=== PATIENT | female | born 1940 | race Caucasian/White ===

== ENCOUNTER 2019-12-11 14:23 | Outpatient (CLI) | payer MEDICARE | END 2019-12-11 14:24 | disposition critical access hospital (66) | LOC: EMS 14:23 | PROVIDERS: ATTEND Surgery | DX: R07.89 Other chest pain (principal) | CPT/HCPCS: A0425; A0427 ==

== ENCOUNTER 2019-12-11 15:09 | Emergency (ER) | payer MEDICARE ==
[2019-12-11 15:22] VITALS: BP 157/89
[2019-12-11] MEDS ORDERED: MORPHINE 2 MG/ML CARPUJECT IVP STA ×2 (15:25→17:39)
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
[2019-12-11] MEDS ORDERED: IOVERSOL 320 100 ML VIAL IVP ONE ×2 (15:38→19:11)
[2019-12-11 15:48] LABS: BASOPHILS % (AUTO) 0.4 %; EOSINOPHILS # (AUTO) 0.1 10^3/uL (0.0-0.7); EOSINOPHILS % (AUTO) 1.4 %; HGB - HEMOGLOBIN 13.1 g/dL (12.0-16.0); LYMPHOCYTES # (AUTO) 1.4 10^3/uL (1.5-3.5); LYMPHOCYTES % (AUTO) 18.1 %; MEAN CORPUSCULAR HEMOGLOBIN 29.8 pg (27.0-31.0); MEAN CORPUSCULAR HGB CONC 32.7 g/dL (32.0-36.0); MEAN CORPUSCULAR VOLUME 91.1 fL (81.0-99.0); MEAN PLATELET VOLUME 11.5 fL (7.9-10.8); MONOCYTES # (AUTO) 0.5 10^3/uL (0.0-1.0); MONOCYTES % (AUTO) 6.5 %; NEUTROPHILS # (AUTO) 5.6 10^3/uL (1.5-6.6); NEUTROPHILS % (AUTO) 71.7 %; PLT - PLATELET COUNT 115 10^3/uL (130-450); RED CELL DISTRIBUTION WIDTH 13.3 % (12.0-15.0); WHITE BLOOD COUNT 7.8 x10^3/uL (4.8-10.8)
[2019-12-11 15:52] LABS: CALCIUM 9.5 mg/dL (8.5-10.3)
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
[2019-12-11] MEDS ORDERED: TETANUS/DIPHTHERIA/PERTUSSIS 0.5 ML SYRINGE IM ONE (18:20)
[2019-12-11] MEDS ORDERED: HYDROcod/ACETAM 5/325 MG TABLET PO STA (18:52)
== END 2019-12-11 19:06 | disposition left against medical advice (07) ==
LOC: EDUNIT# → ED 15:09
DX: S22.31XA Fracture of one rib, right side, initial encounter for closed fracture (principal); S22.20XA Unspecified fracture of sternum, initial encounter for closed fracture; S22.040A Wedge compression fracture of fourth thoracic vertebra, initial encounter for closed fracture; S20.211A Contusion of right front wall of thorax, initial encounter; S80.02XA Contusion of left knee, initial encounter; S80.212A Abrasion, left knee, initial encounter; S80.01XA Contusion of right knee, initial encounter; S80.12XA Contusion of left lower leg, initial encounter; S10.93XA Contusion of unspecified part of neck, initial encounter; S60.221A Contusion of right hand, initial encounter; V43.62XA Car passenger injured in collision with other type car in traffic accident, initial encounter; Y92.410 Unspecified street and highway as the place of occurrence of the external cause; Z23 Encounter for immunization; M47.812 Spondylosis without myelopathy or radiculopathy, cervical region; E04.9 Nontoxic goiter, unspecified; Z53.20 Procedure and treatment not carried out because of patient's decision for unspecified reasons
CPT/HCPCS: 36415; 70450; 71260; 72125; 73560; 74177; 80048; 85025; 90471; 90715; 96374; 99284; A9270; Q9967

== ENCOUNTER 2019-12-29 10:38 | Outpatient (CLI) | payer OTHER, MEDICARE, BC | END 2019-12-29 10:39 | disposition EMS.NT | LOC: EMS 10:38 | PROVIDERS: ATTEND Surgery | DX: R53.1 Weakness (principal); R42 Dizziness and giddiness ==

== ENCOUNTER 2019-12-29 13:00 | Outpatient (CLI) | payer OTHER, MEDICARE, BC | END 2019-12-29 13:01 | disposition critical access hospital (66) | LOC: EMS 13:00 | PROVIDERS: ATTEND Surgery | DX: R53.1 Weakness (principal); R29.6 Repeated falls; R53.83 Other fatigue; R42 Dizziness and giddiness | CPT/HCPCS: A0425; A0427 ==

== ENCOUNTER 2019-12-29 13:39 | Inpatient (IN) | payer OTHER, MEDICARE, BC ==
[2019-12-29 14:14] LABS: BASOPHILS % (AUTO) 0.3 %; HGB - HEMOGLOBIN 12.4 g/dL (12.0-16.0); LYMPHOCYTES # (AUTO) 0.9 10^3/uL (1.5-3.5); LYMPHOCYTES % (AUTO) 8.4 %; MEAN CORPUSCULAR HEMOGLOBIN 29.2 pg (27.0-31.0); MEAN CORPUSCULAR HGB CONC 32.7 g/dL (32.0-36.0); MEAN CORPUSCULAR VOLUME 89.2 fL (81.0-99.0); MEAN PLATELET VOLUME 11.7 fL (7.9-10.8); MONOCYTES # (AUTO) 0.8 10^3/uL (0.0-1.0); MONOCYTES % (AUTO) 7.9 %; NEUTROPHILS # (AUTO) 8.5 10^3/uL (1.5-6.6); PLT - PLATELET COUNT 170 10^3/uL (130-450); RED BLOOD COUNT 4.25 10^6/uL (4.20-5.40); RED CELL DISTRIBUTION WIDTH 13.4 % (12.0-15.0); WHITE BLOOD COUNT 10.2 x10^3/uL (4.8-10.8)
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
[2019-12-29 14:35] LABS: ALBUMIN 3.8 g/dL (3.2-5.5); ALBUMIN/GLOBULIN RATIO 1.2 (1.0-2.2); BILIRUBIN,TOTAL 1.2 mg/dL (0.2-1.0); CALCIUM 9.6 mg/dL (8.5-10.3); CREATININE 0.7 mg/dL (0.4-1.0); TOTAL PROTEIN 7.1 g/dL (6.7-8.2)
[2019-12-29 14:40] LABS: BILIRUBIN,URINE NEGATIVE (NEGATIVE); GLUCOSE, URINE (UA) NEGATIVE (NEGATIVE); KETONES,URINE (UA) 40 mg/dL (NEGATIVE); LEUKOCYTE ESTERASE, URINE NEGATIVE (NEGATIVE); NITRITE,URINE NEGATIVE (NEGATIVE); OCCULT BLOOD,URINE MODERATE (NEGATIVE); PROTEIN,URINE TRACE mg/dL (NEGATIVE); UROBILINOGEN,URINE 0.2 (NORMAL) E.U./dL (NORMAL)
[2019-12-29 14:44] LABS: CLARITY,URINE CLEAR (CLEAR)
[2019-12-29 14:52] LABS: BACTERIA,URINE Moderate /HPF (None Seen); SQUAMOUS EPITHELIAL CELL,UR RARE Squamous (<= Few)
[2019-12-29] MEDS ORDERED: cefTRIAXone 1 GM VIAL IVP STA (14:54)
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
[2019-12-29] MEDS ORDERED: POTASSIUM CHLOR 10 MEQ/100 ML 10 MEQ/100 ML BAG IV STA (15:45)
[2019-12-29] MEDS ORDERED: SODIUM CHLORIDE 0.9% 1,000 ML IV STA (17:22)
[2019-12-29] MEDS ORDERED: SODIUM CHLORIDE FLUSH 0.9% 10 ML SYRINGE IVP PRN (17:44)
[2019-12-29] MEDS ORDERED: HYDROcod/ACETAM 5/325 MG TABLET PO PRN (17:44)
[2019-12-29] MEDS ORDERED: ONDANSETRON 4 MG/2 ML VIAL IVP PRN (17:44)
[2019-12-29] MEDS ORDERED: ACETAMINOPHEN 325 MG TABLET PO PRN (17:44)
[2019-12-29] MEDS ORDERED: MORPHINE 2 MG/ML CARPUJECT IVP PRN (17:44)
[2019-12-29] MEDS ORDERED: POTASSIUM CHLORIDE 20 MEQ TABLET PO STA (17:54)
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
--- NOTE | 2019-12-29 19:21 | XRAY Report ---
PROCEDURE: Hip w/Pelvis 2-3V RT INDICATIONS: Fall. Pain. TECHNIQUE: AP pelvis with lateral view(s) of the bilateral hip(s). COMPARISON: None. FINDINGS: Bones: No fractures or dislocations. Pelvic ring appears intact. No suspicious bony lesions. Soft tissues: The visualized bowel gas pattern is normal. No suspicious soft tissue calcifications. IMPRESSION: No acute fracture or dislocation. If pain persists, consider cross-sectional imaging wit h CT or MRI. Reviewed by: Arianna Perry MD on 12/29/2019 7:20 PM PDT Approved by: Arianna Perry MD on 12/29/2019 7:20 PM PDT Station ID: [id number]
[2019-12-29] MEDS: POTASSIUM CHLOR 10 MEQ/100 ML 10 MEQ/100 ML BAG IV SCH ×4 (19:47→22:55)
[2019-12-29] MEDS: NYSTATIN POWDER 15 GM TOP SCH (21:02)
[2019-12-29] MEDS: METOPROLOL SUCCINATE 50 MG TABLET PO SCH (21:03)
[2019-12-30] MEDS: SODIUM CHLORIDE FLUSH 0.9% 10 ML SYRINGE IVP SCH ×4 (00:05→23:57)
[2019-12-30] MEDS: IBUPROFEN 400 MG TABLET PO PRN (00:25)
[2019-12-30] MEDS: METOPROLOL SUCCINATE 50 MG TABLET PO SCH ×2 (08:52→21:13)
[2019-12-30] MEDS: NYSTATIN POWDER 15 GM TOP SCH ×2 (08:52→21:14)
[2019-12-30] MEDS: ENOXAPARIN 40 MG/0.4 ML SYRINGE SUBQ SCH ×2 (08:52→09:09)
[2019-12-30] MEDS ORDERED: POTASSIUM CHLOR 10 MEQ/100 ML 10 MEQ/100 ML BAG IV ONE ×4 (08:57→12:53)
[2019-12-30] MEDS ORDERED: METOPROLOL SUCCINATE 50 MG TABLET PO ONE (08:57)
[2019-12-30] MEDS ORDERED: ENOXAPARIN 40 MG/0.4 ML SYRINGE SUBQ ONE ×2 (08:58→09:32)
[2019-12-30] MEDS ORDERED: POTASSIUM CHLORIDE 20 MEQ TABLET PO ONE ×2 (08:58→17:16)
--- NOTE | 2019-12-30 09:22 | PROVIDER PROGRESS NOTE ---
Subjective - Prog Note Date Prog Note Date: 12/30/19 - Subjective Subjective: She feels much better today. Reports no pain. Denies chest pain, dyspnea, dizziness and lightheadedness. She was happy to work with PT and she been using the spirometry frequently. Family is present at bedside. Current Medications - Current Medications Current Medications: Active Medications Acetaminophen (Tylenol) 650 mg PO Q4HR PRN PRN Reason: Pain 1 to 4 Enoxaparin Sodium (Lovenox) 40 mg SUBQ DAILY [facility] Last Admin: 12/30/19 09:09 Dose: Not Given Documented by: Ceftriaxone Sodium 1 gm/ (Sodium Chloride) 100 mls @ 200 mls/hr IV Q24H [facility] Ibuprofen (Motrin) 400 mg PO Q4HR PRN PRN Reason: Pain 1 to 4 Last Admin: 12/30/19 00:25 Dose: 400 mg Documented by: Metoprolol Succinate (Toprol Xl) 50 mg PO BID [facility] Last Admin: 12/30/19 08:52 Dose: 50 mg Documented by: Nystatin (Nystop) 1 applic TOP BID [facility] Last Admin: 12/30/19 08:52 Dose: 1 applic Documented by: Ondansetron HCl (Zofran Inj) 4 mg IVP Q6HR PRN PRN Reason: Nausea / Vomiting Oxycodone HCl (Roxicodone) 2.5 mg PO Q4HR PRN PRN Reason: PAIN Sodium Chloride (Normal Saline Flush 0.9%) 10 ml IVP PRN PRN PRN Reason: NEEDED PER PROVIDER ORDERS Sodium Chloride (Normal Saline Flush 0.9%) 10 ml IVP 0100,0900,1700 [facility] Last Admin: 12/30/19 08:52 Dose: 10 ml Documented by: Estradiol [Estrace] 1 gm VG QPM 12/29/19 Metoprolol Succinate [Toprol Xl] 50 mg PO BID 12/29/19 hydroCHLOROthiazide [Hydrochlorothiazide] 12.5 mg PO DAILY 12/29/19 Objective - Vital Signs/Intake & Output Reviewed Vital Signs: Yes Intake & Output: Intake & Output 12/27/19 12/28/19 12/29/19 12/30/19 23:59 23:59 23:59 23:59 Intake Total 1358.333 100 Balance 1358.333 100 - Objective General Appearance: positive: No acute distress, Alert Eyes Bilateral: positive: Normal inspection, Conjunctivae nml ENT: positive: ENT inspection nml Neck: positive: Nml inspection Respiratory: positive: No respiratory distress. negative: Wheezes, Rales, Rhonchi Cardiovascular: positive: Regular rate & rhythm, No murmur. negative: Tachycardia, Systolic murmur Abdomen: positive: Non-tender, No distention. negative: Tenderness Skin: positive: Warm, Dry, Other (Multiple areas of ecchymosis over her chest and lower extremities. An abrasion over her left knee is healing well.) Extremities: positive: Full ROM, Pedal edema (+1 pitting edema in bilateral lower extremities.) Neurologic/Psychiatric: positive: Oriented x3, Motor nml, Sensation nml - Lab Results Fish Bones: 12/29/19 14:09 12/29/19 14:09 Other Labs: Lab Results x24hrs 12/29/19 12/29/19 12/29/19 Range/Units 20:22 15:58 15:54 WBC (4.8-10.8) x10^3/uL RBC (4.20-5.40) 10^6/uL Hgb (12.0-16.0) g/dL Hct (37.0-47.0) % MCV (81.0-99.0) fL MCH (27.0-31.0) pg MCHC (32.0-36.0) g/dL RDW (12.0-15.0) % Plt Count (130-450) 10^3/uL MPV (7.9-10.8) fL Neut # (Auto) (1.5-6.6) 10^3/uL Lymph # (Auto) (1.5-3.5) 10^3/uL Morrison # (Auto) (0.0-1.0) 10^3/uL Eos # (Auto) (0.0-0.7) 10^3/uL Baso # (Auto) (0.0-0.1) 10^3/uL Absolute Nucleated RBC x10^3/uL Nucleated RBC % /100WBC Sodium (135-145) mmol/L Potassium (3.5-5.0) mmol/L Chloride (101-111) mmol/L Carbon Dioxide (21-32) mmol/L Anion Gap (6-13) BUN (6-20) mg/dL Creatinine (0.4-1.0) mg/dL Estimated GFR (MDRD) (>89) Glucose (70-100) mg/dL Calcium (8.5-10.3) mg/dL Magnesium 2.2 (1.7-2.8) mg/dL Total Bilirubin (0.2-1.0) mg/dL AST (10-42) IU/L ALT (10-60) IU/L Alkaline Phosphatase (42-121) IU/L Troponin I High Sens 58.5 H* 39.0 H* (2.3-14.8) ng/L B-Natriuretic Peptide (5-100) pg/mL Total Protein (6.7-8.2) g/dL Albumin (3.2-5.5) g/dL Globulin (2.1-4.2) g/dL Albumin/Globulin Ratio (1.0-2.2) Lipase (22-51) U/L Urine Color Urine Clarity (CLEAR) Urine pH (5.0-7.5) PH Ur Specific Graham (1.002-1.030) Urine Protein (NEGATIVE) mg/dL Urine Glucose (UA) (NEGATIVE) mg/dL Urine Ketones (NEGATIVE) mg/dL Urine Occult Blood (NEGATIVE) Urine Nitrite (NEGATIVE) Urine Bilirubin (NEGATIVE) Urine Urobilinogen (NORMAL) E.U./dL Ur Leukocyte Esterase (NEGATIVE) Urine RBC (0-5) /HPF Urine WBC (0-5) /HPF Ur Squamous Epith Cells (<= Few) Urine Bacteria (None Seen) /HPF Ur Microscopic Review Urine Culture Comments 12/29/19 12/29/19 12/29/19 Range/Units 14:23 14:09 14:09 WBC (4.8-10.8) x10^3/uL RBC (4.20-5.40) 10^6/uL Hgb (12.0-16.0) g/dL Hct (37.0-47.0) % MCV (81.0-99.0) fL MCH (27.0-31.0) pg MCHC (32.0-36.0) g/dL RDW (12.0-15.0) % Plt Count (130-450) 10^3/uL MPV (7.9-10.8) fL Neut # (Auto) (1.5-6.6) 10^3/uL Lymph # (Auto) (1.5-3.5) 10^3/uL Morrison # (Auto) (0.0-1.0) 10^3/uL Eos # (Auto) (0.0-0.7) 10^3/uL Baso # (Auto) (0.0-0.1) 10^3/uL Absolute Nucleated RBC x10^3/uL Nucleated RBC % /100WBC Sodium (135-145) mmol/L Potassium (3.5-5.0) mmol/L Chloride (101-111) mmol/L Carbon Dioxide (21-32) mmol/L Anion Gap (6-13) BUN (6-20) mg/dL Creatinine (0.4-1.0) mg/dL Estimated GFR (MDRD) (>89) Glucose (70-100) mg/dL Calcium (8.5-10.3) mg/dL Magnesium (1.7-2.8) mg/dL Total Bilirubin (0.2-1.0) mg/dL AST (10-42) IU/L ALT (10-60) IU/L Alkaline Phosphatase (42-121) IU/L Troponin I High Sens 38.9 H* (2.3-14.8) ng/L B-Natriuretic Peptide 170 H (5-100) pg/mL Total Protein (6.7-8.2) g/dL Albumin (3.2-5.5) g/dL Globulin (2.1-4.2) g/dL Albumin/Globulin Ratio (1.0-2.2) Lipase (22-51) U/L Urine Color YELLOW Urine Clarity CLEAR (CLEAR) Urine pH 6.0 (5.0-7.5) PH Ur Specific Graham 1.025 (1.002-1.030) Urine Protein TRACE (NEGATIVE) mg/dL Urine Glucose (UA) NEGATIVE (NEGATIVE) mg/dL Urine Ketones 40 H (NEGATIVE) mg/dL Urine Occult Blood MODERATE H (NEGATIVE) Urine Nitrite NEGATIVE (NEGATIVE) Urine Bilirubin NEGATIVE (NEGATIVE) Urine Urobilinogen 0.2 (NORMAL) (NORMAL) E.U./dL Ur Leukocyte Esterase NEGATIVE (NEGATIVE) Urine RBC 6-10 H (0-5) /HPF Urine WBC 6-10 H (0-5) /HPF Ur Squamous Epith Cells RARE Squamous (<= Few) Urine Bacteria Moderate H (None Seen) /HPF Ur Microscopic Review INDICATED Urine Culture Comments INDICATED 12/29/19 12/29/19 Range/Units 14:09 14:09 WBC 10.2 (4.8-10.8) x10^3/uL RBC 4.25 (4.20-5.40) 10^6/uL Hgb 12.4 (12.0-16.0) g/dL Hct 37.9 (37.0-47.0) % MCV 89.2 (81.0-99.0) fL MCH 29.2 (27.0-31.0) pg MCHC 32.7 (32.0-36.0) g/dL RDW 13.4 (12.0-15.0) % Plt Count 170 (130-450) 10^3/uL MPV 11.7 H (7.9-10.8) fL Neut # (Auto) 8.5 H (1.5-6.6) 10^3/uL Lymph # (Auto) 0.9 L (1.5-3.5) 10^3/uL Morrison # (Auto) 0.8 (0.0-1.0) 10^3/uL Eos # (Auto) 0.0 (0.0-0.7) 10^3/uL Baso # (Auto) 0.0 (0.0-0.1) 10^3/uL Absolute Nucleated RBC 0.00 x10^3/uL Nucleated RBC % 0.0 /100WBC Sodium 144 (135-145) mmol/L Potassium 2.7 L (3.5-5.0) mmol/L Chloride 106 (101-111) mmol/L Carbon Dioxide 25 (21-32) mmol/L Anion Gap 13.0 (6-13) BUN 37 H (6-20) mg/dL Creatinine 0.7 (0.4-1.0) mg/dL Estimated GFR (MDRD) 80 L (>89) Glucose 104 H (70-100) mg/dL Calcium 9.6 (8.5-10.3) mg/dL Magnesium (1.7-2.8) mg/dL Total Bilirubin 1.2 H (0.2-1.0) mg/dL AST 23 (10-42) IU/L ALT 20 (10-60) IU/L Alkaline Phosphatase 169 H (42-121) IU/L Troponin I High Sens (2.3-14.8) ng/L B-Natriuretic Peptide (5-100) pg/mL Total Protein 7.1 (6.7-8.2) g/dL Albumin 3.8 (3.2-5.5) g/dL Globulin 3.3 (2.1-4.2) g/dL Albumin/Globulin Ratio 1.2 (1.0-2.2) Lipase 22 (22-51) U/L Urine Color Urine Clarity (CLEAR) Urine pH (5.0-7.5) PH Ur Specific Graham (1.002-1.030) Urine Protein (NEGATIVE) mg/dL Urine Glucose (UA) (NEGATIVE) mg/dL Urine Ketones (NEGATIVE) mg/dL Urine Occult Blood (NEGATIVE) Urine Nitrite (NEGATIVE) Urine Bilirubin (NEGATIVE) Urine Urobilinogen (NORMAL) E.U./dL Ur Leukocyte Esterase (NEGATIVE) Urine RBC (0-5) /HPF Urine WBC (0-5) /HPF Ur Squamous Epith Cells (<= Few) Urine Bacteria (None Seen) /HPF Ur Microscopic Review Urine Culture Comments - Diagnostic Imaging Diagnostic Imaging Results: positive: Final report reviewed ABX Reporting Has patient been on IV antibiotics over the past 48 hours?: Yes Assessment/Plan - Problem List (1) Multiple rib fractures Impression: Stable. Pain is well controlled and no evidence of pneumonia, hemothorax, pneumothorax. Continue with incentive spirometry. c Qualifiers: Encounter type: subsequent encounter Fracture type: closed Laterality: right (2) Sternum fx Impression: She has a moderately displaced fracture but there is no retrosternal hematoma. She does have multiple areas of ecchymosis over her chest. Continue incentive spirometry use. Pain control with tylenol, ibuprofen and oxycodone as needed. Continue PT/OT. Appreciate general surgery input. Qualifiers: Encounter type: initial encounter Sternal location: body of sternum Fracture type: closed Qualified Code(s): S22.22XA - Fracture of body of sternum, initial encounter for closed fracture (3) Hypertension Impression: Her blood pressure is better controlled with systolic in the 140s. We will con tinue Metoprolol. Hold HCTZ given the the hypokalemia. Will consider resuming tomorrow or switching to Lisinopril. (4) Peripheral edema Impression: This appears improved today. Do not suspect this is related to heart failure given the minimally elevated BNP and lack of CHF findings on imaging. Dopplers have been obtained to eval for DVT and the report is pending. Will follow up. (5) UTI (urinary tract infection) Impression: Will switch to oral Vantin. Follow up urine culture. Qualifiers: Urinary tract infection type: acute cystitis Hematuria presence: without hematuria Qualified Code(s): N30.00 - Acute cystitis without hematuria (6) Elevated troponin Impression: This is likely demand ischemia secondary to trauma. EKG did not suggest ischemia. Her troponin is slightly increased and will so we will continue to trend until it is decreasing but doubt ACS at this time. (7) Hypokalemia Impression: Will continue to replace orally and intravenously.
[2019-12-30] MEDS ORDERED: FLUoxetine 10 MG CAPSULE PO ONE (09:31)
[2019-12-30] MEDS ORDERED: polyethylene glycoL 3350 17 GM PACKET ONE (09:31)
[2019-12-30] MEDS ORDERED: oxyCODONE 5 MG TABLET PO PRN (13:42)
--- NOTE | 2019-12-30 14:46 | PHARMACY PROGRESS NOTE ---
- Best Possible Medication History Admit Date and Time: 12/29/19 6539 Processed by: Nursing (COMPLETED BY RN WITH PHARMACY FOLLOW-UP REGARDING HYDROCODONE-APAP) Medication History completed: Yes As the person ultimately responsible for medication therapy, providers are able to order a medication from an existing home medication list in [facility] via the "Reconcile Routine" prior to Confirmation of that medication by developer support engineer. Such practice is discouraged except when the physician, in their clinical judgment, deems that a medical need exists for a medication without regard to previous use.
[2019-12-30] MEDS ORDERED: cefTRIAXone 1 GM in SODIUM CHLORIDE 0.9% MINIBAG 100 ML IV SCH (15:00)
--- NOTE | 2019-12-30 16:18 | Ultrasound Report ---
PROCEDURE: Duplex Ext Veins Bilateral INDICATIONS: Lower extremity edema TECHNIQUE: Real-time imaging, as well as color and pulse Doppler interrogation, were performed of the deep veins of both legs from the inguinal ligament to the popliteal fossa. COMPARISON: None FINDINGS: The deep veins are normally compressible, and free of intraluminal thrombus. Color and pu lse Doppler demonstrate normal phasic intravascular flow. There is normal augmentation response to d istal compression maneuver. IMPRESSION: No deep venous thrombosis. Reviewed by: Cass Grove MD on 12/30/2019 8:05 AM PDT Approved by: Cass Grove MD on 12/30/2019 8:05 AM PDT Station ID: [id number]
[2019-12-30 16:33] LABS: CALCIUM 8.5 mg/dL (8.5-10.3); CREATININE 0.6 mg/dL (0.4-1.0); PHOSPHORUS 2.9 mg/dL (2.5-4.6)
[2019-12-30 16:34] LABS: CALCIUM 8.7 mg/dL (8.5-10.3); CREATININE 0.7 mg/dL (0.4-1.0)
[2019-12-30 16:49] LABS: BASOPHILS % (AUTO) 0.3 %; EOSINOPHILS # (AUTO) 0.1 10^3/uL (0.0-0.7); EOSINOPHILS % (AUTO) 0.5 %; HGB - HEMOGLOBIN 11.4 g/dL (12.0-16.0); LYMPHOCYTES # (AUTO) 1.7 10^3/uL (1.5-3.5); LYMPHOCYTES % (AUTO) 17.7 %; MEAN CORPUSCULAR HEMOGLOBIN 29.2 pg (27.0-31.0); MEAN CORPUSCULAR HGB CONC 32.5 g/dL (32.0-36.0); MEAN CORPUSCULAR VOLUME 89.8 fL (81.0-99.0); MEAN PLATELET VOLUME 12.1 fL (7.9-10.8); MONOCYTES % (AUTO) 10.9 %; NEUTROPHILS # (AUTO) 6.5 10^3/uL (1.5-6.6); NEUTROPHILS % (AUTO) 70.3 %; PLT - PLATELET COUNT 171 10^3/uL (130-450); RED BLOOD COUNT 3.91 10^6/uL (4.20-5.40); RED CELL DISTRIBUTION WIDTH 13.4 % (12.0-15.0); WHITE BLOOD COUNT 9.3 x10^3/uL (4.8-10.8)
[2019-12-30] MEDS: MULTIVITAMIN W/MINERALS TABLET PO SCH (18:23)
[2019-12-30] MEDS: CALCIUM CARBONATE CHEW 500 MG TABLET PO SCH (21:13)
[2019-12-31 04:50] LABS: BASOPHILS % (AUTO) 0.4 %; EOSINOPHILS # (AUTO) 0.1 10^3/uL (0.0-0.7); EOSINOPHILS % (AUTO) 1.1 %; HGB - HEMOGLOBIN 11.7 g/dL (12.0-16.0); LYMPHOCYTES # (AUTO) 1.4 10^3/uL (1.5-3.5); LYMPHOCYTES % (AUTO) 19.4 %; MEAN CORPUSCULAR HEMOGLOBIN 28.7 pg (27.0-31.0); MEAN CORPUSCULAR HGB CONC 32.1 g/dL (32.0-36.0); MEAN CORPUSCULAR VOLUME 89.7 fL (81.0-99.0); MEAN PLATELET VOLUME 11.4 fL (7.9-10.8); MONOCYTES # (AUTO) 0.7 10^3/uL (0.0-1.0); MONOCYTES % (AUTO) 9.6 %; NEUTROPHILS # (AUTO) 4.9 10^3/uL (1.5-6.6); NEUTROPHILS % (AUTO) 69.1 %; PLT - PLATELET COUNT 157 10^3/uL (130-450); RED BLOOD COUNT 4.07 10^6/uL (4.20-5.40); RED CELL DISTRIBUTION WIDTH 13.2 % (12.0-15.0); WHITE BLOOD COUNT 7.1 x10^3/uL (4.8-10.8)
[2019-12-31 05:02] LABS: CALCIUM 8.8 mg/dL (8.5-10.3); CREATININE 0.6 mg/dL (0.4-1.0); MAGNESIUM 2.3 mg/dL (1.7-2.8); PHOSPHORUS 2.6 mg/dL (2.5-4.6)
[2019-12-31] MEDS: hydroCHLOROthiazide 25 MG TABLET PO SCH ×2 (06:18→08:58)
[2019-12-31] MEDS: METOPROLOL SUCCINATE 50 MG TABLET PO SCH ×2 (08:58→20:22)
[2019-12-31] MEDS: CALCIUM CARBONATE CHEW 500 MG TABLET PO SCH ×2 (08:58→20:22)
[2019-12-31] MEDS: MULTIVITAMIN W/MINERALS TABLET PO SCH (08:59)
[2019-12-31] MEDS: CHOLECALCIFEROL 25 MCG TABLET PO SCH (09:00)
[2019-12-31] MEDS ORDERED: CEFPODOXIME PROXETIL 100 MG TABLET PO SCH (09:00)
[2019-12-31] MEDS: IBUPROFEN 400 MG TABLET PO PRN (09:00)
[2019-12-31] MEDS: NYSTATIN POWDER 15 GM TOP SCH ×2 (09:01→20:22)
[2019-12-31] MEDS: ENOXAPARIN 40 MG/0.4 ML SYRINGE SUBQ SCH (09:01)
[2019-12-31] MEDS: SODIUM CHLORIDE FLUSH 0.9% 10 ML SYRINGE IVP SCH ×2 (09:01→16:54)
[2019-12-31] MEDS ORDERED: LOSARTAN 50 MG TABLET PO SCH (15:02)
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
[2019-12-31] MEDS: SACCHAROMYCES BOULARDII 250 MG CAPSULE PO SCH (16:50)
[2019-12-31] MEDS: TAMSULOSIN 0.4 MG CAPSULE PO SCH (16:50)
[2020-01-01] MEDS: SODIUM CHLORIDE FLUSH 0.9% 10 ML SYRINGE IVP SCH ×3 (00:38→17:54)
[2020-01-01 05:13] LABS: BASOPHILS % (AUTO) 0.4 %; EOSINOPHILS # (AUTO) 0.2 10^3/uL (0.0-0.7); HGB - HEMOGLOBIN 12.3 g/dL (12.0-16.0); LYMPHOCYTES # (AUTO) 1.6 10^3/uL (1.5-3.5); LYMPHOCYTES % (AUTO) 21.6 %; MEAN CORPUSCULAR HGB CONC 32.9 g/dL (32.0-36.0); MEAN CORPUSCULAR VOLUME 88.2 fL (81.0-99.0); MONOCYTES # (AUTO) 0.7 10^3/uL (0.0-1.0); MONOCYTES % (AUTO) 9.5 %; NEUTROPHILS # (AUTO) 4.8 10^3/uL (1.5-6.6); NEUTROPHILS % (AUTO) 65.1 %; PLT - PLATELET COUNT 152 10^3/uL (130-450); RED BLOOD COUNT 4.24 10^6/uL (4.20-5.40); RED CELL DISTRIBUTION WIDTH 13.2 % (12.0-15.0); WHITE BLOOD COUNT 7.4 x10^3/uL (4.8-10.8)
[2020-01-01 05:25] LABS: CALCIUM 9.1 mg/dL (8.5-10.3); CREATININE 0.6 mg/dL (0.4-1.0); MAGNESIUM 2.1 mg/dL (1.7-2.8); PHOSPHORUS 3.4 mg/dL (2.5-4.6)
[2020-01-01] MEDS ORDERED: POTASSIUM CHLORIDE 20 MEQ TABLET PO ONE (08:00)
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
[2020-01-01] MEDS ORDERED: SODIUM CHLORIDE 0.9% 1,000 ML IV SCH ×3 (11:00)
[2020-01-01] MEDS: MULTIVITAMIN W/MINERALS TABLET PO SCH (11:44)
[2020-01-01] MEDS: IBUPROFEN 400 MG TABLET PO PRN (11:44)
[2020-01-01] MEDS: SACCHAROMYCES BOULARDII 250 MG CAPSULE PO SCH ×2 (11:44→17:54)
[2020-01-01] MEDS: CHOLECALCIFEROL 25 MCG TABLET PO SCH (11:45)
[2020-01-01] MEDS: CALCIUM CARBONATE CHEW 500 MG TABLET PO SCH ×2 (11:45→22:04)
[2020-01-01] MEDS: ENOXAPARIN 40 MG/0.4 ML SYRINGE SUBQ SCH (11:46)
[2020-01-01] MEDS: NYSTATIN POWDER 15 GM TOP SCH ×2 (11:51→21:57)
[2020-01-01] MEDS: TAMSULOSIN 0.4 MG CAPSULE PO SCH (11:53)
[2020-01-01] MEDS: METOPROLOL SUCCINATE 50 MG TABLET PO SCH (22:04)
[2020-01-02] MEDS: SODIUM CHLORIDE FLUSH 0.9% 10 ML SYRINGE IVP SCH ×2 (00:08→08:36)
[2020-01-02 05:18] LABS: BASOPHILS % (AUTO) 0.5 %; EOSINOPHILS # (AUTO) 0.2 10^3/uL (0.0-0.7); EOSINOPHILS % (AUTO) 2.7 %; HGB - HEMOGLOBIN 11.8 g/dL (12.0-16.0); LYMPHOCYTES # (AUTO) 1.3 10^3/uL (1.5-3.5); MEAN CORPUSCULAR HEMOGLOBIN 29.3 pg (27.0-31.0); MEAN CORPUSCULAR HGB CONC 32.9 g/dL (32.0-36.0); MEAN CORPUSCULAR VOLUME 89.1 fL (81.0-99.0); MEAN PLATELET VOLUME 11.8 fL (7.9-10.8); MONOCYTES # (AUTO) 0.7 10^3/uL (0.0-1.0); MONOCYTES % (AUTO) 10.4 %; NEUTROPHILS % (AUTO) 64.9 %; PLT - PLATELET COUNT 155 10^3/uL (130-450); RED BLOOD COUNT 4.03 10^6/uL (4.20-5.40); RED CELL DISTRIBUTION WIDTH 13.3 % (12.0-15.0); WHITE BLOOD COUNT 6.2 x10^3/uL (4.8-10.8)
[2020-01-02 05:33] LABS: CALCIUM 8.6 mg/dL (8.5-10.3); CREATININE 0.6 mg/dL (0.4-1.0); MAGNESIUM 2.1 mg/dL (1.7-2.8); PHOSPHORUS 3.1 mg/dL (2.5-4.6)
[2020-01-02] MEDS: METOPROLOL SUCCINATE 50 MG TABLET PO SCH (08:35)
[2020-01-02] MEDS: ENOXAPARIN 40 MG/0.4 ML SYRINGE SUBQ SCH (08:35)
[2020-01-02] MEDS: SACCHAROMYCES BOULARDII 250 MG CAPSULE PO SCH (08:35)
[2020-01-02] MEDS: CALCIUM CARBONATE CHEW 500 MG TABLET PO SCH (08:36)
[2020-01-02] MEDS: CHOLECALCIFEROL 25 MCG TABLET PO SCH (08:36)
[2020-01-02] MEDS: IBUPROFEN 400 MG TABLET PO PRN (08:36)
[2020-01-02] MEDS: MULTIVITAMIN W/MINERALS TABLET PO SCH (08:36)
[2020-01-02] MEDS: TAMSULOSIN 0.4 MG CAPSULE PO SCH (08:36)
[2020-01-02] MEDS: NYSTATIN POWDER 15 GM TOP SCH (08:47)
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
[2020-01-02 16:09] VITALS: BP 135/73
== END 2020-01-02 16:28 | disposition swing bed (61) | DRG 184 ==
LOC: EDUNIT# → ED 13:39 → MS2 17:44
PROVIDERS: ADMIT Internal Medicine; ATTEND Nurse Practitioner Gerontology
DX: S22.41XA Multiple fractures of ribs, right side, initial encounter for closed fracture (principal); S22.20XA Unspecified fracture of sternum, initial encounter for closed fracture; S22.049A Unspecified fracture of fourth thoracic vertebra, initial encounter for closed fracture; S22.059A Unspecified fracture of T5-T6 vertebra, initial encounter for closed fracture; F11.921 Opioid use, unspecified with intoxication delirium; N30.00 Acute cystitis without hematuria; I24.8 Other forms of acute ischemic heart disease; Z91.81 History of falling; I10 Essential (primary) hypertension; R60.0 Localized edema; R77.8 Other specified abnormalities of plasma proteins; E87.6 Hypokalemia; R33.9 Retention of urine, unspecified; Z99.3 Dependence on wheelchair; F03.90 Unspecified dementia, unspecified severity, without behavioral disturbance, psychotic disturbance, mood disturbance, and anxiety; R42 Dizziness and giddiness; M25.511 Pain in right shoulder; R25.1 Tremor, unspecified
CPT/HCPCS: 36415; 51701; 70450; 71250; 73030; 73502; 80048; 80053; 81001; 83690; 83735; 83880; 84100; 84484; 85025; 87086; 93005; 93970; 96365; 97161; 97166; 97530; 97535; 99285; A9270; J1650; 81003

== ENCOUNTER 2020-01-02 11:52 | Inpatient (IN) | payer OTHER, MEDICARE, BC ==
--- NOTE | 2020-01-02 17:52 | PHARMACY PROGRESS NOTE ---
- Best Possible Medication History Admit Date and Time: 01/02/20 1624 Processed by: Pharmacy Medication History completed: Yes Secondary Source(s): Previous admit records (SWING BED TRANSFER - MEDICATON HISTORY CARRIED OVER FROM INPATIENT RECORDS) As the person ultimately responsible for medication therapy, providers are able to order a medication from an existing home medication list in [facility] via the "Reconcile Routine" prior to Confirmation of that medication by passport support manager. Such practice is discouraged except when the physician, in their clinical judgment, deems that a medical need exists for a medication without regard to previous use.
[2020-01-02] MEDS: CALCIUM CARBONATE CHEW 500 MG TABLET PO SCH (20:40)
[2020-01-02] MEDS: METOPROLOL TARTRATE 50 MG TABLET PO SCH (21:29)
[2020-01-03] MEDS: CALCIUM CARBONATE CHEW 500 MG TABLET PO SCH ×2 (10:03→21:14)
[2020-01-03] MEDS: METOPROLOL TARTRATE 50 MG TABLET PO SCH ×2 (10:03→21:14)
[2020-01-03] MEDS: ENOXAPARIN 40 MG/0.4 ML SYRINGE SUBQ SCH (10:06)
[2020-01-04] MEDS: METOPROLOL TARTRATE 50 MG TABLET PO SCH ×2 (08:57→20:16)
[2020-01-04] MEDS: ENOXAPARIN 40 MG/0.4 ML SYRINGE SUBQ SCH (08:57)
[2020-01-04] MEDS: CALCIUM CARBONATE CHEW 500 MG TABLET PO SCH ×2 (08:57→20:16)
[2020-01-04] MEDS: polyethylene glycoL 3350 17 GM PACKET PO SCH (08:57)
[2020-01-04] MEDS: IBUPROFEN 600 MG TABLET PO PRN (11:23)
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
[2020-01-05] MEDS: ENOXAPARIN 40 MG/0.4 ML SYRINGE SUBQ SCH (09:20)
[2020-01-05] MEDS: METOPROLOL TARTRATE 50 MG TABLET PO SCH ×2 (09:20→19:46)
[2020-01-05] MEDS: CALCIUM CARBONATE CHEW 500 MG TABLET PO SCH ×2 (09:20→19:46)
[2020-01-05] MEDS: polyethylene glycoL 3350 17 GM PACKET PO SCH (09:24)
[2020-01-05] MEDS: IBUPROFEN 600 MG TABLET PO PRN (22:15)
[2020-01-06] MEDS: ACETAMINOPHEN 325 MG TABLET PO PRN (03:41)
[2020-01-06 10:08] LABS: BILIRUBIN,URINE NEGATIVE (NEGATIVE); GLUCOSE, URINE (UA) NEGATIVE (NEGATIVE); KETONES,URINE (UA) NEGATIVE (NEGATIVE); LEUKOCYTE ESTERASE, URINE SMALL (NEGATIVE); NITRITE,URINE NEGATIVE (NEGATIVE); OCCULT BLOOD,URINE LARGE (NEGATIVE); PH,URINE 6.5 PH (5.0-7.5); PROTEIN,URINE NEGATIVE (NEGATIVE); UROBILINOGEN,URINE 0.2 (NORMAL) E.U./dL (NORMAL)
[2020-01-06 10:10] LABS: CLARITY,URINE CLEAR (CLEAR)
[2020-01-06] MEDS: polyethylene glycoL 3350 17 GM PACKET PO SCH (10:13)
[2020-01-06] MEDS: METOPROLOL TARTRATE 50 MG TABLET PO SCH ×2 (10:16→20:04)
[2020-01-06] MEDS: ENOXAPARIN 40 MG/0.4 ML SYRINGE SUBQ SCH (10:17)
[2020-01-06] MEDS: CALCIUM CARBONATE CHEW 500 MG TABLET PO SCH (10:19)
[2020-01-06 10:22] LABS: SQUAMOUS EPITHELIAL CELL,UR RARE Squamous (<= Few)
[2020-01-06 10:23] LABS: BACTERIA,URINE Many /HPF (None Seen)
--- NOTE | 2020-01-06 15:01 | PROVIDER PROGRESS NOTE ---
Subjective - Prog Note Date Prog Note Date: 01/06/20 Prog Note Time: 14:58 - Subjective Subjective: She has been steadily progressing with physical therapy. Therapy and family feel that she is on goal to be discharged by this . Today is Monday. Before she was transitioned to the swing bed status she was already having episodes of urinary retention requiring straight cath. She had a Wallace catheter for about 48 hours and that was discontinued. Since being in swing bed status she continues to have urinary retention has been straight cath. This morning, after attempting to urinate standing, and urinating sitting down, she is still retaining 540 cc. It hurts to urinate. Urinalysis shows possible UTI. There are no fever no chills. No hematuria. No flank pain. Current Medications - Current Medications Current Medications: Active Medications Acetaminophen (Tylenol) 650 mg PO Q4HR PRN PRN Reason: Pain or Fever > 38C (100.4F) Last Admin: 01/06/20 03:41 Dose: 650 mg Documented by: Calcium Carbonate/Glycine (Tums) 500 mg PO BID [facility] Last Admin: 01/06/20 10:19 Dose: 500 mg Documented by: Enoxaparin Sodium (Lovenox) 40 mg SUBQ DAILY [facility] Last Admin: 01/06/20 10:17 Dose: 40 mg Documented by: Ibuprofen (Motrin) 600 mg PO Q6HR PRN PRN Reason: Pain 1 to 4 Last Admin: 01/05/20 22:15 Dose: 600 mg Documented by: Metoprolol Tartrate (Lopressor) 50 mg PO BID [facility] Last Admin: 01/06/20 10:16 Dose: 50 mg Documented by: Polyethylene Glycol (Miralax) 17 gm PO DAILY [facility] Last Admin: 01/06/20 10:13 Dose: 17 gm Documented by: Estradiol [Estrace] 1 gm VG QPM 12/29/19 Metoprolol Succinate [Toprol Xl] 50 mg PO BID 12/29/19 hydroCHLOROthiazide [Hydrochlorothiazide] 12.5 mg PO DAILY 12/29/19 Objective - Vital Signs/Intake & Output Reviewed Vital Signs: Yes Vital Signs: Vital Signs x48h Temp Pulse Pulse Resp BP BP BP 01/06/20 11:41 74 110/75 01/06/20 10:16 162/78 H 01/06/20 09:00 36.8 C 73 18 161/84 H Pulse Ox 01/06/20 11:41 01/06/20 10:16 01/06/20 09:00 97 Intake & Output: Intake & Output 01/03/20 01/04/20 01/05/20 01/06/20 23:59 23:59 23:59 23:59 Intake Total 560 580 600 250 Output Total 1575 256 923 5911 Balance -1015 -320 -100 -950 - Objective General Appearance: positive: No acute distress, Alert, Other (Disoriented alertness, focus has improved over the last few days. Still confused with evidence of cognitive deficit however.) Eyes Bilateral: positive: PERRL Neck: positive: No JVD Respiratory: positive: No respiratory distress. negative: Wheezes, Rales, Rhonchi Cardiovascular: positive: Regular rate & rhythm, Systolic murmur. negative: Gallop/S4, Friction rub Abdomen: positive: No organomegaly, Nml bowel sounds, No distention, Tenderness (Mild over the suprapubic area. Uncomfortable with a full bladder that I feel.) Skin: positive: Warm, Dry Neurologic/Psychiatric: positive: CN's nml (2-12), Disoriented to place, Disoriented to time. negative: Motor nml (Mild backward balance. But getting better and better with prompting and leaning forward.), Mood/affect nml (She can have flashes of anxiety. Mainly related to disorientation. There are times where she thinks her is a stranger and she is very unhappy he is in the room. And then it fades away and she recognizes them again.) - Lab Results Other Labs: Lab Results x24hrs 01/06/20 Range/Units 09:25 Urine Color YELLOW Urine Clarity CLEAR (CLEAR) Urine pH 6.5 (5.0-7.5) PH Ur Specific [place] 1.015 (1.002-1.030) Urine Protein NEGATIVE (NEGATIVE) mg/dL Urine Glucose (UA) NEGATIVE (NEGATIVE) mg/dL Urine Ketones NEGATIVE (NEGATIVE) mg/dL Urine Occult Blood LARGE H (NEGATIVE) Urine Nitrite NEGATIVE (NEGATIVE) Urine Bilirubin NEGATIVE (NEGATIVE) Urine Urobilinogen 0.2 (NORMAL) (NORMAL) E.U./dL Ur Leukocyte Esterase SMALL H (NEGATIVE) Urine RBC 6-10 H (0-5) /HPF Urine WBC 11-25 H (0-5) /HPF Ur Squamous Epith Cells RARE Squamous (<= Few) Urine Bacteria Many H (None Seen) /HPF Ur Microscopic Review INDICATED Urine Culture Comments INDICATED ABX Reporting Has patient been on IV antibiotics over the past 48 hours?: No Assessment/Plan - Problem List (1) UTI (urinary tract infection) Impression: Symptoms of urgency, frequency. Definitely has urinary retention on bladder scan. Urinalysis shows possible infection. Plan:cipro 500 mg po bid Qualifiers: Urinary tract infection type: acute cystitis Hematuria presence: without hematuria Qualified Code(s): N30.00 - Acute cystitis without hematuria (2) Urinary retention Impression: Resume Wallace catheter. Start bladder training over the next 2 days. (3) Hypertension Impression: On Lopressor 50 mg p.o. twice daily blood pressure ranges from 134 262. At 79 years of age, I think that is acceptable. Qualifiers: Hypertension type: essential hypertension Qualified Code(s): I10 - Essential (primary) hypertension
[2020-01-06] MEDS: CIPROFLOXACIN 250 MG TABLET PO SCH (20:05)
[2020-01-07] MEDS: SENNA 8.6 MG TABLET PO SCH (09:24)
[2020-01-07] MEDS: DOCUSATE SODIUM 250 MG CAPSULE PO SCH (09:24)
[2020-01-07] MEDS: METOPROLOL TARTRATE 50 MG TABLET PO SCH ×2 (09:24→21:26)
[2020-01-07] MEDS: CHOLECALCIFEROL 25 MCG TABLET PO SCH (09:25)
[2020-01-07] MEDS: TAMSULOSIN 0.4 MG CAPSULE PO SCH (09:25)
[2020-01-07] MEDS: polyethylene glycoL 3350 17 GM PACKET PO SCH (09:26)
[2020-01-07] MEDS: CIPROFLOXACIN 250 MG TABLET PO SCH ×2 (09:26→21:27)
[2020-01-07] MEDS: ENOXAPARIN 40 MG/0.4 ML SYRINGE SUBQ SCH (09:28)
--- NOTE | 2020-01-07 11:34 | PROVIDER PROGRESS NOTE ---
Assessment/Plan - Problem List (1) Muscular deconditioning Assessment/Plan: She has been in Swing Bed status since 01/02/2020 for PT and OT rehab. (2) Urinary retention Assessment/Plan: This appears to coincide with her abnormal urinalysis suggesting UTI (see below) . A Wallace catheter was placed yesterday. Will start bladder training by ordering every 4 hour Wallace clamping. We will order either Flomax to promote flushing, or Bethanechol to help with urinary retention. (3) UTI (urinary tract infection) Qualifiers: Urinary tract infection type: acute cystitis Hematuria presence: without hematuria Qualified Code(s): N30.00 - Acute cystitis without hematuria Assessment/Plan: She has no fever. She has no burning, urgency or frequency. She was started on oral Cipro for abnormal urinalysis yesterday. Await cultures. A 7-day course of antibx is planned (4) Hypotension Assessment/Plan: Blood pressure dropped to 80-89 systolic this morning, even before giving Flomax. This could be related to her infection or due to decreased p.o. fluid intake. Will give hold parameters on her meds if low blood pressure. Will check CMP, CBC and lactic acid level. Will give a saline bolus if BP not better in a few hours or if she is lightheaded. Monitor BP as per protocol. (5) Dementia Qualifiers: Dementia type: unspecified type Dementia behavioral disturbance: without behavioral disturbance Qualified Code(s): F03.90 - Unspecified dementia without behavioral disturbance Assessment/Plan: There are no behavioral disturbances and she is cooperating with PT and OT. She occasionally gets confused and does not even recognize her , but this happens when she is anxious and then it passes and she recognizes him. - Current Meds Current Meds: Current Medications Generic Name Dose Route Start Last Admin Trade Name Freq PRN Reason Stop Dose Admin Acetaminophen 650 mg 01/02/20 16:30 01/06/20 03:41 Tylenol PO 650 mg Q4HR PRN Administration Pain or Fever > 38C (100.4F) Cholecalciferol 50 mcg 01/07/20 09:00 01/07/20 09:25 Vitamin D3 PO 50 mcg DAILY MONICA Administration Ciprofloxacin 500 mg 01/06/20 21:00 01/07/20 09:26 Cipro PO 500 mg BID MONICA Administration Docusate Sodium 250 - 500 mg 01/07/20 09:00 01/07/20 09:24 Colace 250mg Capsule PO 250 mg DAILY MONICA Administration Enoxaparin Sodium 40 mg 01/03/20 09:00 01/07/20 09:28 Lovenox SUBQ 40 mg DAILY MONICA Administration Ibuprofen 600 mg 01/02/20 16:34 01/05/20 22:15 Motrin PO 600 mg Q6HR PRN Administration Pain 1 to 4 Metoprolol Tartrate 50 mg 01/02/20 21:00 01/07/20 09:24 Lopressor PO Not Given BID MONICA Polyethylene Glycol 17 gm 01/04/20 09:00 01/07/20 09:26 Miralax PO 17 gm DAILY MONICA Administration Senna 8.6 - 17.2 mg 01/07/20 09:00 01/07/20 09:24 Senokot PO 8.6 mg DAILY MONICA Administration Tamsulosin HCl 0.4 mg 01/07/20 09:00 01/07/20 09:25 Flomax PO 0.4 mg DAILY MONICA Administration - Lab Result Fish Bone Diagrams: 01/07/20 12:04 01/07/20 12:04 - Additional Planning My Orders: My Active Orders 01/07/20 09:00 Cholecalciferol [Vitamin D3] 50 mcg PO DAILY Tamsulosin [Flomax] 0.4 mg PO DAILY 01/07/20 11:12 Miscellaenous Nursing Order [RC] QSHIFT 01/07/20 Lunch Low Sodium Diet [DIET] Subjective - Subjective Patient Reports: No Complaints Nursing Reports: Other (Wallace catheter was put in yesterday. The nurse tried clamping it for 4 hours then assess if she had any urgency to urinate and the patient had none.) Objective Vital Signs: Vital Signs - 24 hr 01/06/20 01/06/20 01/06/20 11:41 20:03 20:04 Temperature 36.4 C L Heart Rate [ 72 Brachial] Heart Rate [ 74 Supine] Respiratory 18 Rate Blood Pressure 153/80 H Blood Pressure [Left Brachial artery] Blood Pressure 153/80 H [Right Brachial artery] Blood Pressure 110/75 [Supine] O2 Saturation 99 01/07/20 01/07/20 01/07/20 09:18 09:20 09:23 Temperature 36.4 C L Heart Rate [ 77 75 73 Brachial] Heart Rate [ Supine] Respiratory 20 Rate Blood Pressure Blood Pressure 81/52 L 89/54 L [Left Brachial artery] Blood Pressure 85/54 L [Right Brachial artery] Blood Pressure [Supine] O2 Saturation 98 Oxygen O2 Source Room air I&O (Last 24 Hrs): Intake and Output Totals x24h 01/05/20 01/06/20 01/07/20 23:59 23:59 23:59 Intake Total 600 550 120 Output Total 700 2935 700 Balance -100 -6077 -658 General: Alert HEENT: Mucous membr. moist/pink Neck: Supple Neuro: Disoriented Cardiovascular: Regular rate Respiratory: No respiratory distress Abdomen: Soft Extremities: No edema - Results Results: Laboratory Results Urine Color YELLOW 01/06/20 09:25 Urine Clarity CLEAR (CLEAR) 01/06/20 09:25 Urine pH 6.5 PH (5.0-7.5) 01/06/20 09:25 Ur Specific [place] 1.015 (1.002-1.030) 01/06/20 09:25 Urine Protein NEGATIVE mg/dL (NEGATIVE) 01/06/20 09:25 Urine Glucose (UA) NEGATIVE mg/dL (NEGATIVE) 01/06/20 09:25 Urine Ketones NEGATIVE mg/dL (NEGATIVE) 01/06/20 09:25 Urine Occult Blood LARGE (NEGATIVE) H 01/06/20 09:25 Urine Nitrite NEGATIVE (NEGATIVE) 01/06/20 09:25 Urine Bilirubin NEGATIVE (NEGATIVE) 01/06/20 09:25 Urine Urobilinogen 0.2 (NORMAL) E.U./dL (NORMAL) 01/06/20 09:25 Ur Leukocyte Esterase SMALL (NEGATIVE) H 01/06/20 09:25 Urine RBC 6-10 /HPF (0-5) H 01/06/20 09:25 Urine WBC 11-25 /HPF (0-5) H 01/06/20 09:25 Ur Squamous Epith Cells RARE Squamous (<= Few) 01/06/20 09:25 Urine Bacteria Many /HPF (None Seen) H 01/06/20 09:25 Ur Microscopic Review INDICATED 01/06/20 09:25 Urine Culture Comments INDICATED 01/06/20 09:25
[2020-01-07] MEDS ORDERED: SODIUM CHLORIDE 0.9% 500 ML IV ONE (11:39)
[2020-01-07] MEDS: CALCIUM CARBONATE CHEW 500 MG TABLET PO SCH ×2 (12:05→17:10)
[2020-01-07 12:10] LABS: BASOPHILS % (AUTO) 0.3 %; EOSINOPHILS # (AUTO) 0.1 10^3/uL (0.0-0.7); EOSINOPHILS % (AUTO) 1.2 %; HGB - HEMOGLOBIN 12.6 g/dL (12.0-16.0); LYMPHOCYTES # (AUTO) 1.4 10^3/uL (1.5-3.5); LYMPHOCYTES % (AUTO) 15.5 %; MEAN CORPUSCULAR HEMOGLOBIN 28.9 pg (27.0-31.0); MEAN CORPUSCULAR HGB CONC 31.8 g/dL (32.0-36.0); MEAN CORPUSCULAR VOLUME 90.8 fL (81.0-99.0); MONOCYTES # (AUTO) 0.6 10^3/uL (0.0-1.0); MONOCYTES % (AUTO) 6.5 %; NEUTROPHILS % (AUTO) 75.8 %; PLT - PLATELET COUNT 199 10^3/uL (130-450); RED BLOOD COUNT 4.36 10^6/uL (4.20-5.40); RED CELL DISTRIBUTION WIDTH 13.3 % (12.0-15.0); WHITE BLOOD COUNT 9.2 x10^3/uL (4.8-10.8)
[2020-01-07 12:23] LABS: ALBUMIN 3.2 g/dL (3.2-5.5); BILIRUBIN,TOTAL 0.3 mg/dL (0.2-1.0); CALCIUM 9.2 mg/dL (8.5-10.3); CREATININE 0.7 mg/dL (0.4-1.0); TOTAL PROTEIN 6.5 g/dL (6.7-8.2)
--- NOTE | 2020-01-08 09:10 | PROVIDER PROGRESS NOTE ---
Assessment/Plan - Problem List (1) Muscular deconditioning Assessment/Plan: She has been in Swing Bed status since 01/02/2020 for PT and OT rehab. (2) UTI (urinary tract infection) Qualifiers: Urinary tract infection type: acute cystitis Hematuria presence: without hematuria Qualified Code(s): N30.00 - Acute cystitis without hematuria Assessment/Plan: The labs done yesterday did not show an elevated WBC but Lactic Acid level was slightly elevated at 2.9. The urine is growing Eb=nterobacter which is good sensative. She was started on oral Cipro for abnormal urinalysis 2 days ago. A 7-day course of antibx is planned (3) Infection due to Enterobacter species Assessment/Plan: As above (4) Urinary retention Assessment/Plan: This appears to coincide with her abnormal urinalysis suggesting UTI A Wallace catheter was placed 2 days ago. Bladder training started yesterday, by ordering every 4 hour Wallace clamping. We ordered Bethanechol to help with urinary retention. Will D/C Wallace tomorrow. (5) Dementia Qualifiers: Dementia type: unspecified type Dementia behavioral disturbance: without behavioral disturbance Qualified Code(s): F03.90 - Unspecified dementia without behavioral disturbance Assessment/Plan: There are no behavioral disturbances and she is cooperating with PT and OT. She occasionally gets confused and does not even recognize her , but this happens when she is anxious and then it passes and she recognizes him. (6) Hypotension Assessment/Plan: Resolved. It may have been from the infection. - Current Meds Current Meds: Current Medications Generic Name Dose Route Start Last Admin Trade Name Nilam PRN Reason Stop Dose Admin Acetaminophen 650 mg 01/02/20 16:30 01/06/20 03:41 Tylenol PO 650 mg Q4HR PRN Administration Pain or Fever > 38C (100.4F) Calcium Carbonate/Glycine 500 mg 01/07/20 12:00 01/07/20 17:10 Tums PO 500 mg 1200,1700 MONICA Administration Cholecalciferol 50 mcg 01/07/20 09:00 01/07/20 09:25 Vitamin D3 PO 50 mcg DAILY MONICA Administration Ciprofloxacin 500 mg 01/06/20 21:00 01/07/20 21:27 Cipro PO 500 mg BID MONICA Administration Docusate Sodium 250 - 500 mg 01/07/20 09:00 01/07/20 09:24 Colace 250mg Capsule PO 250 mg DAILY MONICA Administration Enoxaparin Sodium 40 mg 01/03/20 09:00 01/07/20 09:28 Lovenox SUBQ 40 mg DAILY MONICA Administration Ibuprofen 600 mg 01/02/20 16:34 01/05/20 22:15 Motrin PO 600 mg Q6HR PRN Administration Pain 1 to 4 Metoprolol Tartrate 50 mg 01/02/20 21:00 01/07/20 21:26 Lopressor PO 50 mg BID MONICA Administration Polyethylene Glycol 17 gm 01/04/20 09:00 01/07/20 09:26 Miralax PO 17 gm DAILY MONICA Administration Senna 8.6 - 17.2 mg 01/07/20 09:00 01/07/20 09:24 Senokot PO 8.6 mg DAILY MONICA Administration Tamsulosin HCl 0.4 mg 01/07/20 09:00 01/07/20 09:25 Flomax PO 0.4 mg DAILY MONICA Administration - Lab Result Fish Bone Diagrams: 01/07/20 12:04 01/07/20 12:04 - Additional Planning My Orders: My Active Orders 01/07/20 09:00 Cholecalciferol [Vitamin D3] 50 mcg PO DAILY Tamsulosin [Flomax] 0.4 mg PO DAILY 01/07/20 11:12 Miscellaenous Nursing Order [RC] QSHIFT 01/07/20 Lunch Low Sodium Diet [DIET] 01/08/20 09:00 Bethanechol [Urecholine] 10 mg PO QID Subjective - Subjective Patient Reports: No Complaints Objective Vital Signs: Vital Signs - 24 hr 01/07/20 01/07/20 01/07/20 09:18 09:20 09:23 Temperature 36.4 C L Heart Rate [ 77 75 73 Brachial] Respiratory 20 Rate Blood Pressure Blood Pressure 81/52 L 89/54 L [Left Brachial artery] Blood Pressure 85/54 L [Right Brachial artery] O2 Saturation 98 01/07/20 01/07/20 01/07/20 12:01 20:17 21:26 Temperature 36.4 C L Heart Rate [ 77 82 Brachial] Respiratory 18 18 Rate Blood Pressure 153/72 H Blood Pressure [Left Brachial artery] Blood Pressure 128/63 154/82 H [Right Brachial artery] O2 Saturation 98 96 01/08/20 08:00 Temperature 36.3 C L Heart Rate [ 67 Brachial] Respiratory 16 Rate Blood Pressure Blood Pressure [Left Brachial artery] Blood Pressure 127/75 [Right Brachial artery] O2 Saturation 100 Oxygen O2 Source Room air I&O (Last 24 Hrs): Intake and Output Totals x24h 01/06/20 01/07/20 01/08/20 23:59 23:59 23:59 Intake Total 550 480 Output Total 2935 1545 450 Balance -2385 -1065 -450 General: Alert HEENT: Mucous membr. moist/pink Neck: Supple Neuro: Alert, Disoriented Cardiovascular: Regular rate Respiratory: No respiratory distress Extremities: No edema - Results Results: Laboratory Results WBC 9.2 x10^3/uL (4.8-10.8) 01/07/20 12:04 RBC 4.36 10^6/uL (4.20-5.40) 01/07/20 12:04 Hgb 12.6 g/dL (12.0-16.0) 01/07/20 12:04 Hct 39.6 % (37.0-47.0) 01/07/20 12:04 MCV 90.8 fL (81.0-99.0) 01/07/20 12:04 MCH 28.9 pg (27.0-31.0) 01/07/20 12:04 MCHC 31.8 g/dL (32.0-36.0) L 01/07/20 12:04 RDW 13.3 % (12.0-15.0) 01/07/20 12:04 Plt Count 199 10^3/uL (130-450) 01/07/20 12:04 MPV 11.0 fL (7.9-10.8) H 01/07/20 12:04 Neut # (Auto) 7.0 10^3/uL (1.5-6.6) H 01/07/20 12:04 Lymph # (Auto) 1.4 10^3/uL (1.5-3.5) L 01/07/20 12:04 Iron # (Auto) 0.6 10^3/uL (0.0-1.0) 01/07/20 12:04 Eos # (Auto) 0.1 10^3/uL (0.0-0.7) 01/07/20 12:04 Baso # (Auto) 0.0 10^3/uL (0.0-0.1) 01/07/20 12:04 Absolute Nucleated RBC 0.00 x10^3/uL 01/07/20 12:04 Nucleated RBC % 0.0 /100WBC 01/07/20 12:04 Sodium 138 mmol/L (135-145) 01/07/20 12:04 Potassium 3.7 mmol/L (3.5-5.0) 01/07/20 12:04 Chloride 104 mmol/L (101-111) 01/07/20 12:04 Carbon Dioxide 23 mmol/L (21-32) 01/07/20 12:04 Anion Gap 11.0 (6-13) 01/07/20 12:04 BUN 21 mg/dL (6-20) H 01/07/20 12:04 Creatinine 0.7 mg/dL (0.4-1.0) 01/07/20 12:04 Estimated GFR (MDRD) 80 (>89) L 01/07/20 12:04 Glucose 119 mg/dL (70-100) H 01/07/20 12:04 Lactic Acid 2.9 mmol/L (0.5-2.2) H 01/07/20 12:04 Calcium 9.2 mg/dL (8.5-10.3) 01/07/20 12:04 Total Bilirubin 0.3 mg/dL (0.2-1.0) 01/07/20 12:04 AST 30 IU/L (10-42) 01/07/20 12:04 ALT 42 IU/L (10-60) 01/07/20 12:04 Alkaline Phosphatase 119 IU/L (42-121) 01/07/20 12:04 Total Protein 6.5 g/dL (6.7-8.2) L 01/07/20 12:04 Albumin 3.2 g/dL (3.2-5.5) 01/07/20 12:04 Globulin 3.3 g/dL (2.1-4.2) 01/07/20 12:04 Albumin/Globulin Ratio 1.0 (1.0-2.2) 01/07/20 12:04 Urine Color YELLOW 01/06/20 09:25 Urine Clarity CLEAR (CLEAR) 01/06/20 09:25 Urine pH 6.5 PH (5.0-7.5) 01/06/20 09:25 Ur Specific [place] 1.015 (1.002-1.030) 01/06/20 09:25 Urine Protein NEGATIVE mg/dL (NEGATIVE) 01/06/20 09:25 Urine Glucose (UA) NEGATIVE mg/dL (NEGATIVE) 01/06/20 09:25 Urine Ketones NEGATIVE mg/dL (NEGATIVE) 01/06/20 09:25 Urine Occult Blood LARGE (NEGATIVE) H 01/06/20 09:25 Urine Nitrite NEGATIVE (NEGATIVE) 01/06/20 09:25 Urine Bilirubin NEGATIVE (NEGATIVE) 01/06/20 09:25 Urine Urobilinogen 0.2 (NORMAL) E.U./dL (NORMAL) 01/06/20 09:25 Ur Leukocyte Esterase SMALL (NEGATIVE) H 01/06/20 09:25 Urine RBC 6-10 /HPF (0-5) H 01/06/20 09:25 Urine WBC 11-25 /HPF (0-5) H 01/06/20 09:25 Ur Squamous Epith Cells RARE Squamous (<= Few) 01/06/20 09:25 Urine Bacteria Many /HPF (None Seen) H 01/06/20 09:25 Ur Microscopic Review INDICATED 01/06/20 09:25 Urine Culture Comments INDICATED 01/06/20 09:25
[2020-01-08] MEDS: polyethylene glycoL 3350 17 GM PACKET PO SCH (10:05)
[2020-01-08] MEDS: ENOXAPARIN 40 MG/0.4 ML SYRINGE SUBQ SCH (10:06)
[2020-01-08] MEDS: SENNA 8.6 MG TABLET PO SCH (10:06)
[2020-01-08] MEDS: CHOLECALCIFEROL 25 MCG TABLET PO SCH (10:06)
[2020-01-08] MEDS: METOPROLOL TARTRATE 50 MG TABLET PO SCH ×2 (10:07→20:35)
[2020-01-08] MEDS: CIPROFLOXACIN 250 MG TABLET PO SCH ×2 (10:07→20:36)
[2020-01-08] MEDS: BETHANECHOL 10 MG TABLET PO SCH ×4 (10:07→20:40)
[2020-01-08] MEDS: TAMSULOSIN 0.4 MG CAPSULE PO SCH (10:08)
[2020-01-08] MEDS: DOCUSATE SODIUM 250 MG CAPSULE PO SCH (10:09)
[2020-01-08] MEDS: CALCIUM CARBONATE CHEW 500 MG TABLET PO SCH ×2 (12:25→17:54)
[2020-01-08] MEDS: ACETAMINOPHEN 325 MG TABLET PO PRN (13:09)
[2020-01-09] MEDS: BETHANECHOL 10 MG TABLET PO SCH ×2 (09:12→11:25)
[2020-01-09] MEDS: METOPROLOL TARTRATE 50 MG TABLET PO SCH (09:12)
[2020-01-09] MEDS: CHOLECALCIFEROL 25 MCG TABLET PO SCH (09:13)
[2020-01-09] MEDS: CIPROFLOXACIN 250 MG TABLET PO SCH (09:14)
[2020-01-09] MEDS: ENOXAPARIN 40 MG/0.4 ML SYRINGE SUBQ SCH (09:14)
[2020-01-09 09:24] VITALS: BP 135/75
--- NOTE | 2020-01-09 10:49 | Discharge Plan ---
Discharge Plan Problem Reviewed?: Yes Disposition: 06 Home Health Service Condition: Stable Prescriptions: Ciprofloxacin [Cipro] 250 mg PO Q12H #6 tablet Calcium Carbonate [Tums (Calcium Carbonate 500mg)] 500 mg PO 1200,1700 #30 tablet Bethanechol [Urecholine] 10 mg PO QID #16 tablet Cholecalciferol [Vitamin D3] 50 mcg PO DAILY #60 tablet Diet: Low Sodium Activity Restrictions: Activity as Tolerated Shower Restrictions: No Driving Restrictions: Yes Assistance Devices: Walker Health Concerns: You were here for rehab with Physical Therapy and Occupational Therapy. You are being sent home with a new walker to use with ambulation. At home, you will have further rehab work with a home health agency. We found that you have a urinary tract infection and you needed antibiotics. You will need to take several more days of oral antibiotics at home. Please take all these listed medications. The new prescription medications were electronically sent to your [facility] in [place]. Please see your Primary Care Provider in the next 1 to 2 weeks for a hospital follow-up. Plan of Treatment: As above. Care Goals: Improvement in symptoms and stabilization are the goals. Assessment: Written instructions were provided at discharge. Follow-Up Care: Home Health - RN, Home Health - PT, Home Health - OT No Smoking: If you smoke, Please STOP! Call for help. Follow-up with: Ana Zarate MD [Primary Care Provider] -
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
[2020-01-09] MEDS: DOCUSATE SODIUM 250 MG CAPSULE PO SCH (11:20)
[2020-01-09] MEDS: polyethylene glycoL 3350 17 GM PACKET PO SCH (11:20)
[2020-01-09] MEDS: SENNA 8.6 MG TABLET PO SCH (11:20)
[2020-01-09] MEDS: CALCIUM CARBONATE CHEW 500 MG TABLET PO SCH (11:24)
== END 2020-01-09 13:42 | disposition home health service (06) | DRG 556 ==
LOC: MS2 16:24
PROVIDERS: ADMIT Specialist; ATTEND Internal Medicine
DX: M62.81 Muscle weakness (generalized) (principal); N30.00 Acute cystitis without hematuria; B96.89 Other specified bacterial agents as the cause of diseases classified elsewhere; S22.41XG Multiple fractures of ribs, right side, subsequent encounter for fracture with delayed healing; S22.20XD Unspecified fracture of sternum, subsequent encounter for fracture with routine healing; V49.9XXD Car occupant (driver) (passenger) injured in unspecified traffic accident, subsequent encounter; R33.9 Retention of urine, unspecified; I10 Essential (primary) hypertension; F03.90 Unspecified dementia, unspecified severity, without behavioral disturbance, psychotic disturbance, mood disturbance, and anxiety; R53.83 Other fatigue; R32 Unspecified urinary incontinence; M25.559 Pain in unspecified hip; R25.1 Tremor, unspecified; R26.81 Unsteadiness on feet; H91.90 Unspecified hearing loss, unspecified ear; M40.209 Unspecified kyphosis, site unspecified; Z91.81 History of falling; Z74.09 Other reduced mobility; Z79.899 Other long term (current) drug therapy
CPT/HCPCS: 36415 ×2; 80053 ×2; 81001 ×2; 81003; 83605 ×2; 85025 ×2; 87077 ×2; 87086 ×2; 87181 ×2; 97116; 97161; 97166; 97530; 97535; A9270; J1650

== ENCOUNTER 2020-02-21 23:28 | Outpatient (CLI) | payer MEDICARE, BC | END 2020-02-21 23:29 | disposition EMS.NT | LOC: EMS 23:28 | PROVIDERS: ATTEND Surgery | DX: S09.90XA Unspecified injury of head, initial encounter (principal); W18.39XA Other fall on same level, initial encounter; W22.8XXA Striking against or struck by other objects, initial encounter; Y93.89 Activity, other specified; Y92.009 Unspecified place in unspecified non-institutional (private) residence as the place of occurrence of the external cause ==

== ENCOUNTER 2020-02-28 21:34 | Outpatient (CLI) | payer MEDICARE, BC | END 2020-02-28 21:35 | disposition EMS.NT | LOC: EMS 21:34 | PROVIDERS: ATTEND Surgery | DX: Z03.89 Encounter for observation for other suspected diseases and conditions ruled out (principal) ==

== ENCOUNTER 2020-04-18 23:04 | Emergency (ER) | payer MEDICARE, BC ==
--- NOTE | 2020-04-18 23:56 | ED Physician Documentation ---
History of Present Illness - Stated complaint Stated Complaint: BILAT ANKLE REDNESS - Chief complaint Chief Complaint: Wound - History obtained from History obtained from: Patient, EMS - History of Present Illness Timing: How many weeks ago (2) Pain level now: 2 Improved by: nothing Worsened by: no exacerbating factors - Additonal information Additional information: BIBA. patient c/o 2 weeks of bilateral ankle redness and swelling, gradually worsening despite 10-day course of bactrim. denies fever, denies injury Review of Systems Constitutional: denies: Fever, Chills, Sweats GI: reports: Reviewed and negative Skin: reports: Rash Musculoskeletal: reports: Extremity pain, Extremity swelling PD PAST MEDICAL HISTORY - Past Medical History Cardiovascular: Hypertension Neuro: Tremors Musculoskeletal: Other - Present Medications Home Medications: Ambulatory Orders Medication Instructions Recorded Confirmed Metoprolol Succinate [Toprol Xl] 50 mg PO BID 12/29/19 01/02/20 Ciprofloxacin HCl [Cipro] 500 mg PO BID #19 tablet 04/19/20 SULFAM/TRIM 800/160 Prepack 2 1 tab PO BID 04/19/20 04/19/20 [BACTRIM DS 800/160 Prepack 2] - Allergies Allergies/Adverse Reactions: Allergies Allergy/AdvReac Type Severity Reaction Status Date / Time No Known Drug Allergies Allergy Verified 04/18/20 23:08 - Social History Does the pt smoke?: No Smoking Status: Never smoker Does the pt drink ETOH?: No Does the pt have substance abuse?: No - Immunizations Immunizations are current?: Yes - POLST Patient has POLST: No POLST Status: Full Code PD ED PE NORMAL - Vitals Vital signs reviewed: Yes - General General: Alert and oriented X 3, No acute distress, Well developed/nourished - Neck Neck: Supple, no meningeal sign - Cardiac Cardiac: RRR, No murmur - Respiratory Respiratory: No respiratory distress, Clear bilaterally - Abdomen Abdomen: Soft, Non tender PD ED PE EXPANDED - Extremities Extremities: Pedal Pulses Present, Sensory intact, Vascular intact JUDSON LE visual: 1 - deformity (sharply marginated ulceration with dry granulomatous tissue; no discharge, fluctuance, or tenderness) 2 - rash (erythema, scant thick malodorous discharge, no fluctuance), swelling, tenderness 3 - rash (erythema with scant thick malodorous discharge, no fluctuance), swelling, tenderness Results - Vitals Vitals: Vital Signs - 24 hr 04/18/20 04/19/20 23:08 02:39 Temperature 36.5 C 36.6 C Heart Rate 72 68 Respiratory 16 14 Rate Blood Pressure 123/72 120/64 O2 Saturation 100 100 Oxygen O2 Source Room air - Labs Labs: Laboratory Tests 04/18/20 04/18/20 04/18/20 23:55 23:55 23:55 WBC 9.3 RBC 3.93 L Hgb 11.1 L Hct 35.4 L MCV 90.1 MCH 28.2 MCHC 31.4 L RDW 15.4 H Plt Count 92 L MPV 12.0 H Neut # (Auto) 7.4 H Lymph # (Auto) 1.0 L [place] # (Auto) 0.8 Eos # (Auto) 0.1 Baso # (Auto) 0.0 Absolute Nucleated RBC 0.00 Nucleated RBC % 0.0 Sodium 134 L Potassium 4.1 Chloride 102 Carbon Dioxide 24 Anion Gap 8.0 BUN 37 H Creatinine 0.9 Estimated GFR (MDRD) 60 L Glucose 103 H Lactic Acid 1.0 Calcium 8.9 PD MEDICAL DECISION MAKING - ED course Complexity details: reviewed old records, reviewed results, re-evaluated patient, considered differential, d/w patient ED course: reassuring blood tests including normal WBC and lactate. She is afebrile and in NAD. the malodor of the discharge from her bilateral lower extremities is suggestive of a pseudomonal infection and thus cipro given and rx provided for same. inpatient treatment not indicated at this time Departure - Departure Disposition: 01 Home, Self Care Clinical Impression: Cellulitis Qualifiers: Site of cellulitis: extremity Site of cellulitis of extremity: lower extremity Laterality: unspecified laterality Qualified Code(s): L03.119 - Cellulitis of unspecified part of limb Condition: Good Instructions: ED Infec Skin Cellulitis Follow-Up: Ana Zarate MD [Primary Care Provider] - Prescriptions: Ciprofloxacin HCl [Cipro] 500 mg PO BID #19 tablet Discharge Date/Time: 04/19/20 02:38
[2020-04-19 00:10] LABS: BASOPHILS % (AUTO) 0.3 %; EOSINOPHILS # (AUTO) 0.1 10^3/uL (0.0-0.7); HGB - HEMOGLOBIN 11.1 g/dL (12.0-16.0); LYMPHOCYTES % (AUTO) 11.1 %; MEAN CORPUSCULAR HEMOGLOBIN 28.2 pg (27.0-31.0); MEAN CORPUSCULAR HGB CONC 31.4 g/dL (32.0-36.0); MEAN CORPUSCULAR VOLUME 90.1 fL (81.0-99.0); MONOCYTES # (AUTO) 0.8 10^3/uL (0.0-1.0); MONOCYTES % (AUTO) 8.3 %; NEUTROPHILS # (AUTO) 7.4 10^3/uL (1.5-6.6); PLT - PLATELET COUNT 92 10^3/uL (130-450); RED BLOOD COUNT 3.93 10^6/uL (4.20-5.40); RED CELL DISTRIBUTION WIDTH 15.4 % (12.0-15.0); WHITE BLOOD COUNT 9.3 x10^3/uL (4.8-10.8)
[2020-04-19 00:16] LABS: CALCIUM 8.9 mg/dL (8.5-10.3); CREATININE 0.9 mg/dL (0.4-1.0)
[2020-04-19] MEDS ORDERED: CIPROFLOXACIN 400 MG/200 ML 400 MG/200 ML BAG IV STA (01:10)
[2020-04-19 02:40] VITALS: BP 120/64
== END 2020-04-19 02:38 | disposition home or self-care (01) ==
LOC: ED 23:04
DX: L03.116 Cellulitis of left lower limb (principal); L03.115 Cellulitis of right lower limb; L97.229 Non-pressure chronic ulcer of left calf with unspecified severity; I10 Essential (primary) hypertension
CPT/HCPCS: 36415; 80048; 83605; 85025; 96365; 99284

== ENCOUNTER 2020-05-06 19:49 | Outpatient (CLI) | payer MEDICARE, BC | END 2020-05-06 19:50 | disposition critical access hospital (66) | LOC: EMS 19:49 | PROVIDERS: ATTEND Emergency Medicine | DX: S00.12XA Contusion of left eyelid and periocular area, initial encounter (principal); S00.11XA Contusion of right eyelid and periocular area, initial encounter; S00.83XA Contusion of other part of head, initial encounter; M79.89 Other specified soft tissue disorders; S40.022A Contusion of left upper arm, initial encounter; S40.021A Contusion of right upper arm, initial encounter; W19.XXXA Unspecified fall, initial encounter | CPT/HCPCS: A0425; A0429 ==

== ENCOUNTER 2020-05-06 20:23 | Inpatient (IN) | payer MEDICARE, BC ==
[2020-05-06] MEDS ORDERED: SODIUM CHLORIDE 0.9% 1,000 ML IV STA (20:58)
[2020-05-06 21:32] LABS: BASOPHILS % (AUTO) 0.4 %; EOSINOPHILS % (AUTO) 0.2 %; HCT - HEMATOCRIT 36.5 % (37.0-47.0); HGB - HEMOGLOBIN 11.7 g/dL (12.0-16.0); LYMPHOCYTES # (AUTO) 0.4 10^3/uL (1.5-3.5); LYMPHOCYTES % (AUTO) 8.8 %; MEAN CORPUSCULAR HEMOGLOBIN 28.8 pg (27.0-31.0); MEAN CORPUSCULAR HGB CONC 32.1 g/dL (32.0-36.0); MEAN CORPUSCULAR VOLUME 89.9 fL (81.0-99.0); MONOCYTES # (AUTO) 0.3 10^3/uL (0.0-1.0); MONOCYTES % (AUTO) 6.7 %; NEUTROPHILS % (AUTO) 83.7 %; RED BLOOD COUNT 4.06 10^6/uL (4.20-5.40); RED CELL DISTRIBUTION WIDTH 16.2 % (12.0-15.0); WHITE BLOOD COUNT 4.8 x10^3/uL (4.8-10.8)
[2020-05-06 21:34] LABS: PT - PROTHROMBIN TIME 11.4 secs (9.9-12.6)
[2020-05-06 21:41] LABS: ACETAMINOPHEN < 10 ug/mL (10-30); ALBUMIN 3.1 g/dL (3.2-5.5); ALKALINE PHOSPHATASE 114 IU/L (42-121); ALT ALANINE AMINOTRANSFERASE 48 IU/L (10-60); AST ASPARTATE AMINOTRANSFERASE 33 IU/L (10-42); BILIRUBIN,TOTAL 0.6 mg/dL (0.2-1.0); BUN - BLOOD UREA NITROGEN 23 mg/dL (6-20); CALCIUM 9.4 mg/dL (8.5-10.3); CARBON DIOXIDE - CO2 27 mmol/L (21-32); CHLORIDE 104 mmol/L (101-111); CK- CREATINE KINASE 49 IU/L (22-269); CREATININE 0.6 mg/dL (0.4-1.0); CRP - C-REACTIVE PROTEIN 2.4 mg/dL (0-1.0); ETOH - ETHANOL < 5.0 mg/dL; GFR - MDRD 96 (>89); GLUCOSE 102 mg/dL (70-100); LIPASE 28 U/L (22-51); PARTIAL THROMBOPLASTIN TIME 38.6 secs (24.9-33.3); POTASSIUM 3.8 mmol/L (3.5-5.0); SALICYLATE < 6.0 mg/dL; SODIUM 141 mmol/L (135-145); TOTAL PROTEIN 6.2 g/dL (6.7-8.2)
[2020-05-06 21:45] LABS: PLATELET MORPHOLOGY 1+ GIANT PLATELETS (NORMAL); PLT - PLATELET COUNT 30 10^3/uL (130-450)
[2020-05-06 21:46] LABS: PLATELET ESTIMATE, MANUAL DECREASED (<130,000) (NORMAL); RBC MORPHOLOGY (MULTIPLE) 1+ ANISOCYTOSIS (NORMAL); WBC MORPHOLOGY (MULTIPLE) NORMAL APPEARANCE (NORMAL)
[2020-05-06 22:13] LABS: MUDS CUTOFF CONCENTRATIONS CUTOFF CONC BELOW:
[2020-05-06 22:15] LABS: BILIRUBIN,URINE NEGATIVE (NEGATIVE); GLUCOSE, URINE (UA) NEGATIVE (NEGATIVE); KETONES,URINE (UA) 15 mg/dL (NEGATIVE); LEUKOCYTE ESTERASE, URINE NEGATIVE (NEGATIVE); NITRITE,URINE NEGATIVE (NEGATIVE); OCCULT BLOOD,URINE NEGATIVE (NEGATIVE); PROTEIN,URINE NEGATIVE (NEGATIVE); UROBILINOGEN,URINE 0.2 (NORMAL) E.U./dL (NORMAL)
[2020-05-06 22:16] LABS: CLARITY,URINE CLEAR (CLEAR)
[2020-05-06 22:27] LABS: AMPHETAMINE SCREEN,URINE NEGATIVE (NEGATIVE); BARBITURATE SCREEN,UR NEGATIVE (NEGATIVE); BENZODIAZEPINES SCREEN, URINE NEGATIVE (NEGATIVE); COCAINE SCREEN URINE NEGATIVE (NEGATIVE); METHADONE SCREEN, URINE NEGATIVE (NEGATIVE); METHAMPHETAMINES SCREEN, URINE NEGATIVE (NEGATIVE); OPIATE SCREEN, URINE NEGATIVE (NEGATIVE); OXYCODONE SCREEN, URINE NEGATIVE (NEGATIVE); PROPOXYPHENE SCREEN, URINE NEGATIVE (NEGATIVE); THC CANNABINOID SCREEN, URINE NEGATIVE (NEGATIVE); TRICYCLIC ANTIDEPRESSANT,URINE NEGATIVE (NEGATIVE)
--- NOTE | 2020-05-06 22:29 | ED Physician Documentation ---
History of Present Illness - Stated complaint Stated Complaint: GLF/ HEAD, FACE INJ - Chief complaint Chief Complaint: General - History obtained from History obtained from: Patient, EMS - History of Present Illness Timing: Today Pain level max: 0 Pain level now: 0 - Additonal information Additional information: Patient lives at home with her . Per EMS, they both have significant dementia. Kerry has been falling multiple times and is now less responsive and not taking care of herself. Per EMS, patient and do not know when she fell or how many times she has fallen. Family states that they are concerned about the patient and her 's ability to be at home. Multiple draining wounds to the legs. Patient unable to give any history. patient significantly bruised over the face and chest. Review of Systems Unable to obtain: [facility] PD PAST MEDICAL HISTORY - Past Medical History Cardiovascular: Hypertension Respiratory: None Neuro: Tremors Endocrine/Autoimmune: None GI: None YEAST TENDER: None : None HEENT: None Psych: None Musculoskeletal: Other Derm: None - Past Surgical History Past Surgical History: No - Present Medications Home Medications: Ambulatory Orders Medication Instructions Recorded Confirmed Metoprolol Succinate [Toprol Xl] 50 mg PO BID 12/29/19 01/02/20 Ciprofloxacin HCl [Cipro] 500 mg PO BID #19 tablet 04/19/20 SULFAM/TRIM 800/160 Prepack 2 1 tab PO BID 04/19/20 04/19/20 [BACTRIM DS 800/160 Prepack 2] - Allergies Allergies/Adverse Reactions: Allergies Allergy/AdvReac Type Severity Reaction Status Date / Time No Known Drug Allergies Allergy Verified 04/18/20 23:08 - Social History Does the pt smoke?: No Smoking Status: Never smoker Does the pt drink ETOH?: No Does the pt have substance abuse?: No - Immunizations Immunizations are current?: Yes - POLST Patient has POLST: No POLST Status: Full Code PD ED PE NORMAL - Vitals Vital signs reviewed: Yes - General General: Other (somnolent, difficult to arouse) - HEENT HEENT: Pharynx benign, Other (significant B facial swelling. R eye swollen shut.) - Neck Neck: Supple, no meningeal sign - Cardiac Cardiac: RRR - Respiratory Respiratory: No respiratory distress, Clear bilaterally - Abdomen Abdomen: Soft, Non tender, Non distended - Back Back: No spinal TTP - Derm Derm: Other (cool, pale) - Extremities Extremities: Other (open wounds to B lower extremities. No signs of active infection.) - Neuro Neuro: Other (somnolent, difficult to arouse.) Results - Vitals Vitals: Vital Signs - 24 hr 05/06/20 05/06/20 20:28 20:47 Temperature 35.1 C L 35.1 C L Heart Rate 55 L 55 L Respiratory 26 H 26 H Rate Blood Pressure 136/60 H 136/60 H O2 Saturation 100 100 Oxygen O2 Source Room air - EKG (time done) 2113 Rate: Rate (enter#) (70) Rhythm: Atrial fibrillation Intervals: LBBB (incomplete) QRS: Normal - Labs Labs: Laboratory Tests 05/06/20 05/06/20 05/06/20 21:11 21:11 21:11 WBC 4.8 RBC 4.06 L Hgb 11.7 L Hct 36.5 L MCV 89.9 MCH 28.8 MCHC 32.1 RDW 16.2 H Plt Count 30 L* Neut # (Auto) 4.0 Lymph # (Auto) 0.4 L Dubois # (Auto) 0.3 Eos # (Auto) 0.0 Baso # (Auto) 0.0 Absolute Nucleated RBC 0.00 Nucleated RBC % 0.0 WBC Morphology NORMAL APPEARANCE Platelet Estimate DECREASED (<130,000) Platelet Morphology 1+ GIANT PLATELETS RBC Morph Micro Appear 1+ ANISOCYTOSIS ESR PT INR APTT Sodium 141 Potassium 3.8 Chloride 104 Carbon Dioxide 27 Anion Gap 10.0 BUN 23 H Creatinine 0.6 Estimated GFR (MDRD) 96 Glucose 102 H Lactic Acid Calcium 9.4 Total Bilirubin 0.6 AST 33 ALT 48 Alkaline Phosphatase 114 Total Creatine Kinase 49 Troponin I High Sens C-Reactive Protein 2.4 H Total Protein 6.2 L Albumin 3.1 L Globulin 3.1 Albumin/Globulin Ratio 1.0 Lipase 28 TSH 1.37 Urine Color Urine Clarity Urine pH Ur Specific Larue Urine Protein Urine Glucose (UA) Urine Ketones Urine Occult Blood Urine Nitrite Urine Bilirubin Urine Urobilinogen Ur Leukocyte Esterase Ur Microscopic Review Urine Culture Comments Salicylates < 6.0 Urine Opiates Screen Ur Oxycodone Screen Urine Methadone Screen Ur Propoxyphene Screen Acetaminophen < 10 L Ur Barbiturates Screen Ur Tricyclics Screen Ur Phencyclidine Scrn Ur Amphetamine Screen U Methamphetamines Scrn U Benzodiazepines Scrn Urine Cocaine Screen U Cannabinoids Screen Ethyl Alcohol < 5.0 05/06/20 05/06/20 05/06/20 21:11 21:11 21:11 WBC RBC Hgb Hct MCV MCH MCHC RDW Plt Count Neut # (Auto) Lymph # (Auto) Dubois # (Auto) Eos # (Auto) Baso # (Auto) Absolute Nucleated RBC Nucleated RBC % WBC Morphology Platelet Estimate Platelet Morphology RBC Morph Micro Appear ESR 24 PT INR APTT Sodium Potassium Chloride Carbon Dioxide Anion Gap BUN Creatinine Estimated GFR (MDRD) Glucose Lactic Acid 0.8 Calcium Total Bilirubin AST ALT Alkaline Phosphatase Total Creatine Kinase Troponin I High Sens 2.8 C-Reactive Protein Total Protein Albumin Globulin Albumin/Globulin Ratio Lipase TSH Urine Color Urine Clarity Urine pH Ur Specific Larue Urine Protein Urine Glucose (UA) Urine Ketones Urine Occult Blood Urine Nitrite Urine Bilirubin Urine Urobilinogen Ur Leukocyte Esterase Ur Microscopic Review Urine Culture Comments Salicylates Urine Opiates Screen Ur Oxycodone Screen Urine Methadone Screen Ur Propoxyphene Screen Acetaminophen Ur Barbiturates Screen Ur Tricyclics Screen Ur Phencyclidine Scrn Ur Amphetamine Screen U Methamphetamines Scrn U Benzodiazepines Scrn Urine Cocaine Screen U Cannabinoids Screen Ethyl Alcohol 05/06/20 05/06/20 21:11 22:10 WBC RBC Hgb Hct MCV MCH MCHC RDW Plt Count Neut # (Auto) Lymph # (Auto) Dubois # (Auto) Eos # (Auto) Baso # (Auto) Absolute Nucleated RBC Nucleated RBC % WBC Morphology Platelet Estimate Platelet Morphology RBC Morph Micro Appear ESR PT 11.4 INR 1.0 APTT 38.6 H Sodium Potassium Chloride Carbon Dioxide Anion Gap BUN Creatinine Estimated GFR (MDRD) Glucose Lactic Acid Calcium Total Bilirubin AST ALT Alkaline Phosphatase Total Creatine Kinase Troponin I High Sens C-Reactive Protein Total Protein Albumin Globulin Albumin/Globulin Ratio Lipase TSH Urine Color YELLOW Urine Clarity CLEAR Urine pH 6.0 Ur Specific Larue >=1.030 H Urine Protein NEGATIVE Urine Glucose (UA) NEGATIVE Urine Ketones 15 H Urine Occult Blood NEGATIVE Urine Nitrite NEGATIVE Urine Bilirubin NEGATIVE Urine Urobilinogen 0.2 (NORMAL) Ur Leukocyte Esterase NEGATIVE Ur Microscopic Review NOT INDICATED Urine Culture Comments NOT INDICATED Salicylates Urine Opiates Screen NEGATIVE Ur Oxycodone Screen NEGATIVE Urine Methadone Screen NEGATIVE Ur Propoxyphene Screen NEGATIVE Acetaminophen Ur Barbiturates Screen NEGATIVE Ur Tricyclics Screen NEGATIVE Ur Phencyclidine Scrn NEGATIVE Ur Amphetamine Screen NEGATIVE U Methamphetamines Scrn NEGATIVE U Benzodiazepines Scrn NEGATIVE Urine Cocaine Screen NEGATIVE U Cannabinoids Screen NEGATIVE Ethyl Alcohol - Rads (name of study) head CT Radiology: Prelim report reviewed, EMP read contemporaneously, See rad report cervical spine CT Radiology: Prelim report reviewed, EMP read contemporaneously, See rad report maxillofacial CT Radiology: Prelim report reviewed, EMP read contemporaneously, See rad report chest xray Radiology: Prelim report reviewed, EMP read contemporaneously, See rad report (L 10th rib fracture, with LLL consolidation vs atelectasis.) PD MEDICAL DECISION MAKING - ED course Complexity details: reviewed old records, reviewed results, re-evaluated patient, considered differential, d/w technical services consultant ED course: 79-year-old female brought into the emergency department for multiple falls at home. She is quite somnolent in the emergency department. Difficulty arise. Initially was hypothermic. Given IV fluids. Found to be in new onset atrial fibrillation, but controlled ventricular response. She is also found to have a left 10th rib fracture with consolidation in the left lower lung. I do not see any acute injuries on head CT, cervical spine CT or maxillofacial CT, radiology is having difficulty . Has significant bruising to the face, unable to open the right eye. Unable to give any history. She is not oriented to place or time. She does respond slightly to her name with significant physical stimulation to awaken her. Patient also has worsening thrombocytopenia, platelets of 30. Has what appears to be a metabolic encephalopathy with dehydration. Given IV fluids here. Her leg wounds are open, but do not appear acutely infected. Will hold antibiotics at this time. Discussed the case with Dr. Stephen, hospitalist who accepts. A CT scan of the chest will also be performed. This document was made in part using voice recognition software. While efforts are made to proofread this document, sound alike and grammatical errors may occur. Departure - Departure Disposition: 66 [facility] DC/Xfer Clinical Impression: Thrombocytopenia, Metabolic encephalopathy, Consolidation of left lower lobe of lung, Dehydration, Atrial fibrillation, new onset Open leg wound Qualifiers: Encounter type: initial encounter Laterality: bilateral Qualified Code(s): S81.801A - Unspecified open wound, right lower leg, initial encounter; S81.802A - Unspecified open wound, left lower leg, initial encounter Rib fracture Qualifiers: Encounter type: initial encounter Rib fracture type: single rib Fracture type: closed Laterality: left Qualified Code(s): S22.32XA - Fracture of one rib, left side, initial encounter for closed fracture Altered mental status Qualifiers: Altered mental status type: stupor Qualified Code(s): R40.1 - Stupor Condition: Stable
[2020-05-06] MEDS ORDERED: oxyCODONE 5 MG TABLET PO PRN (22:40)
[2020-05-06] MEDS ORDERED: ONDANSETRON ODT 4 MG TABLET TL PRN (22:40)
[2020-05-06] MEDS ORDERED: ONDANSETRON 4 MG/2 ML VIAL IVP PRN (22:40)
[2020-05-06] MEDS ORDERED: SODIUM CHLORIDE FLUSH 0.9% 10 ML SYRINGE IVP PRN (22:40)
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
[2020-05-06] MEDS ORDERED: IOVERSOL 320 100 ML VIAL IVP ONE ×2 (22:58→23:15)
[2020-05-07] MEDS: LACTATED RINGERS 1,000 ML IV SCH ×3 (00:09→21:12)
[2020-05-07] MEDS: SODIUM CHLORIDE FLUSH 0.9% 10 ML SYRINGE IVP SCH ×3 (00:09→17:00)
[2020-05-07 05:38] LABS: BASOPHILS % (AUTO) 0.2 %; EOSINOPHILS % (AUTO) 0.2 %; HCT - HEMATOCRIT 33.2 % (37.0-47.0); HGB - HEMOGLOBIN 10.4 g/dL (12.0-16.0); LYMPHOCYTES # (AUTO) 0.4 10^3/uL (1.5-3.5); LYMPHOCYTES % (AUTO) 9.7 %; MEAN CORPUSCULAR HEMOGLOBIN 28.3 pg (27.0-31.0); MEAN CORPUSCULAR HGB CONC 31.3 g/dL (32.0-36.0); MEAN CORPUSCULAR VOLUME 90.2 fL (81.0-99.0); MONOCYTES # (AUTO) 0.4 10^3/uL (0.0-1.0); NEUTROPHILS # (AUTO) 3.4 10^3/uL (1.5-6.6); NEUTROPHILS % (AUTO) 80.7 %; RED BLOOD COUNT 3.68 10^6/uL (4.20-5.40); RED CELL DISTRIBUTION WIDTH 16.1 % (12.0-15.0); WHITE BLOOD COUNT 4.2 x10^3/uL (4.8-10.8)
[2020-05-07 05:56] LABS: PLT - PLATELET COUNT 28 10^3/uL (130-450)
[2020-05-07 06:01] LABS: PLATELET MORPHOLOGY 1+ LARGE PLATELETS (NORMAL)
[2020-05-07 06:02] LABS: PLATELET ESTIMATE, MANUAL DECREASED (<130,000) (NORMAL)
[2020-05-07 06:32] LABS: CALCIUM 8.8 mg/dL (8.5-10.3); CREATININE 0.5 mg/dL (0.4-1.0); POTASSIUM 3.8 mmol/L (3.5-5.0)
--- NOTE | 2020-05-07 06:37 | XRAY Report ---
PROCEDURE: Chest 1 View X-Ray INDICATIONS: multiple falls, chest injury TECHNIQUE: One view of the chest was acquired. COMPARISON: FINDINGS: Surgical changes and devices: None. Lungs and pleura: No pleural effusions or pneumothorax. Lungs are difficult to accurately assess du e to reduced inspiratory volume with what appears to be mild patchy atelectasis at each lung base. Mediastinum: Mediastinal contours appear normal. Heart size is normal. Bones and chest wall: No suspicious bony lesions that would suggest infection or neoplasm but there is a slightly displaced left posterior lateral 10th rib fracture.. Overlying soft tissues appear unr emarkable. IMPRESSION: Left 10th rib fracture without pneumothorax. Reduced inspiration, basilar atelectasis. Reviewed by: Vladimir Jacobs MD on 05/07/2020 6:35 AM PST Approved by: Vladimir Jacobs MD on 05/07/2020 6:35 AM PST Station ID: [id number]
[2020-05-07 07:03] LABS: FOLATE 20.4 ng/mL (5.90 - >24.8)
--- NOTE | 2020-05-07 07:24 | PROVIDER PROGRESS NOTE ---
Subjective - Prog Note Date Prog Note Date: 05/07/20 - Subjective Subjective: She is unable to tell me where she is or why she is at the hospital. She denies any pain or difficulty breathing. Current Medications - Current Medications Current Medications: Active Medications Acetaminophen (Acetaminophen 325 Mg Tablet) 650 mg PO Q4HR PRN PRN Reason: Pain 1 to 4 Dexamethasone (Dexamethasone 4 Mg Tablet) 40 mg PO DAILY [facility] Stop: 05/10/20 09:01 Last Admin: 05/07/20 08:59 Dose: 40 mg Documented by: Lactated Ringer's (Lr) 1,000 mls @ 100 mls/hr IV .Q10H [facility] Stop: 05/08/20 04:59 Last Admin: 05/07/20 00:09 Dose: 100 mls/hr Documented by: Ondansetron HCl (Ondansetron Odt 4 Mg Tablet) 4 mg TL Q6HR PRN PRN Reason: Nausea / Vomiting Ondansetron HCl (Ondansetron 4 Mg/2 Ml Vial) 4 mg IVP Q6HR PRN PRN Reason: Nausea / Vomiting Oxycodone HCl (Oxycodone 5 Mg Tablet) 5 mg PO Q4HR PRN PRN Reason: Pain 5 to 7 Sodium Chloride (Sodium Chloride Flush 0.9% 10 Ml Syringe) 10 ml IVP PRN PRN PRN Reason: NEEDED PER PROVIDER ORDERS Sodium Chloride (Sodium Chloride Flush 0.9% 10 Ml Syringe) 10 ml IVP 0100,0900,1700 [facility] Last Admin: 05/07/20 08:59 Dose: Not Given Documented by: Metoprolol Succinate [Toprol Xl] 50 mg PO BID 12/29/19 SULFAM/TRIM 800/160 Prepack 2 [BACTRIM DS 800/160 Prepack 2] 1 tab PO BID 04/19/20 Objective - Vital Signs/Intake & Output Reviewed Vital Signs: Yes Vital Signs: Vital Signs x48h Temp Pulse Resp BP Pulse Ox 05/07/20 03:51 35.4 C L 05/07/20 01:26 34.6 C L 05/07/20 00:15 31.2 C L 05/06/20 23:47 83 16 106/59 L 95 Intake & Output: Intake & Output 05/04/20 05/05/20 05/06/20 05/07/20 23:59 23:59 23:59 23:59 Intake Total 415 Balance 415 - Objective General Appearance: positive: Lethargic, Other (She will wake up and communicate briefly and at times answer questions appropriately but then will go back to sleep.) Eyes Bilateral: positive: Conjunctivae nml, Other (She has significant right periorbital ecchymosis and edema.) ENT: positive: ENT inspection nml Respiratory: positive: No respiratory distress. negative: Wheezes, Rales Cardiovascular: positive: Irregularly irregular. negative: Tachycardia, Systoli c murmur Abdomen: positive: Non-tender, No distention. negative: Tenderness Back: positive: Other (She is kyphotic and slumped over predominately leaning towards the right.) Skin: positive: Other (Dressing is in place over the bilateral lower extremities. I did review the pictures taken on admission and she does have a 5x4cm wound over anterior aspect of left leg. No purulent discharge. Mild erythema bilaterally.) Extremities: positive: Pedal edema (+1 edema in bilateral lower extremities.) Neurologic/Psychiatric: positive: Disoriented to place, Other (She is able to move all 4 extremities. She is oriented to self but unable to tell me where she is or why she is here. Does not appear to have focal deficits.). negative: Disoriented to person - Lab Results Fish Bones: 05/07/20 04:39 05/07/20 04:39 Other Labs: Lab Results x24hrs 05/07/20 05/07/20 05/07/20 Range/Units 04:39 04:39 04:39 WBC (4.8-10.8) x10^3/uL RBC (4.20-5.40) 10^6/uL Hgb (12.0-16.0) g/dL Hct (37.0-47.0) % MCV (81.0-99.0) fL MCH (27.0-31.0) pg MCHC (32.0-36.0) g/dL RDW (12.0-15.0) % Plt Count (130-450) 10^3/uL Neut # (Auto) (1.5-6.6) 10^3/uL Lymph # (Auto) (1.5-3.5) 10^3/uL [place] # (Auto) (0.0-1.0) 10^3/uL Eos # (Auto) (0.0-0.7) 10^3/uL Baso # (Auto) (0.0-0.1) 10^3/uL Absolute Nucleated RBC x10^3/uL Nucleated RBC % /100WBC WBC Morphology (NORMAL) Platelet Estimate (NORMAL) Platelet Morphology (NORMAL) RBC Morph Micro Appear (NORMAL) ESR (0-30) mm/Hr PT (9.9-12.6) secs INR (0.8-1.2) APTT (24.9-33.3) secs Sodium 139 (135-145) mmol/L Potassium 3.8 (3.5-5.0) mmol/L Chloride 106 (101-111) mmol/L Carbon Dioxide 25 (21-32) mmol/L Anion Gap 8.0 (6-13) BUN 22 H (6-20) mg/dL Creatinine 0.5 (0.4-1.0) mg/dL Estimated GFR (MDRD) 118 (>89) Glucose 82 (70-100) mg/dL Lactic Acid (0.5-2.2) mmol/L Calcium 8.8 (8.5-10.3) mg/dL Total Bilirubin (0.2-1.0) mg/dL AST (10-42) IU/L ALT (10-60) IU/L Alkaline Phosphatase (42-121) IU/L Total Creatine Kinase (22-269) IU/L Troponin I High Sens 5.4 (2.3-14.8) ng/L C-Reactive Protein (0-1.0) mg/dL Total Protein (6.7-8.2) g/dL Albumin (3.2-5.5) g/dL Globulin (2.1-4.2) g/dL Albumin/Globulin Ratio (1.0-2.2) Lipase (22-51) U/L Vitamin B12 991 H (180-914) pg/mL Folate 20.40 (5.90 - >24.8) ng/mL TSH (0.34-5.60) uIU/mL Urine Color Urine Clarity (CLEAR) Urine pH (5.0-7.5) PH Ur Specific [place] (1.002-1.030) Urine Protein (NEGATIVE) mg/dL Urine Glucose (UA) (NEGATIVE) mg/dL Urine Ketones (NEGATIVE) mg/dL Urine Occult Blood (NEGATIVE) Urine Nitrite (NEGATIVE) Urine Bilirubin (NEGATIVE) Urine Urobilinogen (NORMAL) E.U./dL Ur Leukocyte Esterase (NEGATIVE) Ur Microscopic Review Urine Culture Comments Salicylates mg/dL Urine Opiates Screen (NEGATIVE) Ur Oxycodone Screen (NEGATIVE) Urine Methadone Screen (NEGATIVE) Ur Propoxyphene Screen (NEGATIVE) Acetaminophen (10-30) ug/mL Ur Barbiturates Screen (NEGATIVE) Ur Tricyclics Screen (NEGATIVE) Ur Phencyclidine Scrn (NEGATIVE) Ur Amphetamine Screen (NEGATIVE) U Methamphetamines Scrn (NEGATIVE) U Benzodiazepines Scrn (NEGATIVE) Urine Cocaine Screen (NEGATIVE) U Cannabinoids Screen (NEGATIVE) Ethyl Alcohol mg/dL 05/07/20 05/06/20 05/06/20 Range/Units 04:39 22:10 21:11 WBC 4.2 L (4.8-10.8) x10^3/uL RBC 3.68 L (4.20-5.40) 10^6/uL Hgb 10.4 L (12.0-16.0) g/dL Hct 33.2 L (37.0-47.0) % MCV 90.2 (81.0-99.0) fL MCH 28.3 (27.0-31.0) pg MCHC 31.3 L (32.0-36.0) g/dL RDW 16.1 H (12.0-15.0) % Plt Count 28 L* (130-450) 10^3/uL Neut # (Auto) 3.4 (1.5-6.6) 10^3/uL Lymph # (Auto) 0.4 L (1.5-3.5) 10^3/uL [place] # (Auto) 0.4 (0.0-1.0) 10^3/uL Eos # (Auto) 0.0 (0.0-0.7) 10^3/uL Baso # (Auto) 0.0 (0.0-0.1) 10^3/uL Absolute Nucleated RBC 0.00 x10^3/uL Nucleated RBC % 0.0 /100WBC WBC Morphology (NORMAL) Platelet Estimate DECREASED (<130,000) (NORMAL) Platelet Morphology 1+ LARGE PLATELETS (NORMAL) RBC Morph Micro Appear (NORMAL) ESR (0-30) mm/Hr PT 11.4 (9.9-12.6) secs INR 1.0 (0.8-1.2) APTT 38.6 H (24.9-33.3) secs Sodium (135-145) mmol/L Potassium (3.5-5.0) mmol/L Chloride (101-111) mmol/L Carbon Dioxide (21-32) mmol/L Anion Gap (6-13) BUN (6-20) mg/dL Creatinine (0.4-1.0) mg/dL Estimated GFR (MDRD) (>89) Glucose (70-100) mg/dL Lactic Acid (0.5-2.2) mmol/L Calcium (8.5-10.3) mg/dL Total Bilirubin (0.2-1.0) mg/dL AST (10-42) IU/L ALT (10-60) IU/L Alkaline Phosphatase (42-121) IU/L Total Creatine Kinase (22-269) IU/L Troponin I High Sens (2.3-14.8) ng/L C-Reactive Protein (0-1.0) mg/dL Total Protein (6.7-8.2) g/dL Albumin (3.2-5.5) g/dL Globulin (2.1-4.2) g/dL Albumin/Globulin Ratio (1.0-2.2) Lipase (22-51) U/L Vitamin B12 (180-914) pg/mL Folate (5.90 - >24.8) ng/mL TSH (0.34-5.60) uIU/mL Urine Color YELLOW Urine Clarity CLEAR (CLEAR) Urine pH 6.0 (5.0-7.5) PH Ur Specific [place] >=1.030 H (1.002-1.030) Urine Protein NEGATIVE (NEGATIVE) mg/dL Urine Glucose (UA) NEGATIVE (NEGATIVE) mg/dL Urine Ketones 15 H (NEGATIVE) mg/dL Urine Occult Blood NEGATIVE (NEGATIVE) Urine Nitrite NEGATIVE (NEGATIVE) Urine Bilirubin NEGATIVE (NEGATIVE) Urine Urobilinogen 0.2 (NORMAL) (NORMAL) E.U./dL Ur Leukocyte Esterase NEGATIVE (NEGATIVE) Ur Microscopic Review NOT INDICATED Urine Culture Comments NOT INDICATED Salicylates mg/dL Urine Opiates Screen NEGATIVE (NEGATIVE) Ur Oxycodone Screen NEGATIVE (NEGATIVE) Urine Methadone Screen NEGATIVE (NEGATIVE) Ur Propoxyphene Screen NEGATIVE (NEGATIVE) Acetaminophen (10-30) ug/mL Ur Barbiturates Screen NEGATIVE (NEGATIVE) Ur Tricyclics Screen NEGATIVE (NEGATIVE) Ur Phencyclidine Scrn NEGATIVE (NEGATIVE) Ur Amphetamine Screen NEGATIVE (NEGATIVE) U Methamphetamines Scrn NEGATIVE (NEGATIVE) U Benzodiazepines Scrn NEGATIVE (NEGATIVE) Urine Cocaine Screen NEGATIVE (NEGATIVE) U Cannabinoids Screen NEGATIVE (NEGATIVE) Ethyl Alcohol mg/dL 05/06/20 05/06/20 05/06/20 Range/Units 21:11 21:11 21:11 WBC (4.8-10.8) x10^3/uL RBC (4.20-5.40) 10^6/uL Hgb (12.0-16.0) g/dL Hct (37.0-47.0) % MCV (81.0-99.0) fL MCH (27.0-31.0) pg MCHC (32.0-36.0) g/dL RDW (12.0-15.0) % Plt Count (130-450) 10^3/uL Neut # (Auto) (1.5-6.6) 10^3/uL Lymph # (Auto) (1.5-3.5) 10^3/uL [place] # (Auto) (0.0-1.0) 10^3/uL Eos # (Auto) (0.0-0.7) 10^3/uL Baso # (Auto) (0.0-0.1) 10^3/uL Absolute Nucleated RBC x10^3/uL Nucleated RBC % /100WBC WBC Morphology (NORMAL) Platelet Estimate (NORMAL) Platelet Morphology (NORMAL) RBC Morph Micro Appear (NORMAL) ESR 24 (0-30) mm/Hr PT (9.9-12.6) secs INR (0.8-1.2) APTT (24.9-33.3) secs Sodium (135-145) mmol/L Potassium (3.5-5.0) mmol/L Chloride (101-111) mmol/L Carbon Dioxide (21-32) mmol/L Anion Gap (6-13) BUN (6-20) mg/dL Creatinine (0.4-1.0) mg/dL Estimated GFR (MDRD) (>89) Glucose (70-100) mg/dL Lactic Acid 0.8 (0.5-2.2) mmol/L Calcium (8.5-10.3) mg/dL Total Bilirubin (0.2-1.0) mg/dL AST (10-42) IU/L ALT (10-60) IU/L Alkaline Phosphatase (42-121) IU/L Total Creatine Kinase (22-269) IU/L Troponin I High Sens 2.8 (2.3-14.8) ng/L C-Reactive Protein (0-1.0) mg/dL Total Protein (6.7-8.2) g/dL Albumin (3.2-5.5) g/dL Globulin (2.1-4.2) g/dL Albumin/Globulin Ratio (1.0-2.2) Lipase (22-51) U/L Vitamin B12 (180-914) pg/mL Folate (5.90 - >24.8) ng/mL TSH (0.34-5.60) uIU/mL Urine Color Urine Clarity (CLEAR) Urine pH (5.0-7.5) PH Ur Specific [place] (1.002-1.030) Urine Protein (NEGATIVE) mg/dL Urine Glucose (UA) (NEGATIVE) mg/dL Urine Ketones (NEGATIVE) mg/dL Urine Occult Blood (NEGATIVE) Urine Nitrite (NEGATIVE) Urine Bilirubin (NEGATIVE) Urine Urobilinogen (NORMAL) E.U./dL Ur Leukocyte Esterase (NEGATIVE) Ur Microscopic Review Urine Culture Comments Salicylates mg/dL Urine Opiates Screen (NEGATIVE) Ur Oxycodone Screen (NEGATIVE) Urine Methadone Screen (NEGATIVE) Ur Propoxyphene Screen (NEGATIVE) Acetaminophen (10-30) ug/mL Ur Barbiturates Screen (NEGATIVE) Ur Tricyclics Screen (NEGATIVE) Ur Phencyclidine Scrn (NEGATIVE) Ur Amphetamine Screen (NEGATIVE) U Methamphetamines Scrn (NEGATIVE) U Benzodiazepines Scrn (NEGATIVE) Urine Cocaine Screen (NEGATIVE) U Cannabinoids Screen (NEGATIVE) Ethyl Alcohol mg/dL 05/06/20 05/06/20 05/06/20 Range/Units 21:11 21:11 21:11 WBC 4.8 (4.8-10.8) x10^3/uL RBC 4.06 L (4.20-5.40) 10^6/uL Hgb 11.7 L (12.0-16.0) g/dL Hct 36.5 L (37.0-47.0) % MCV 89.9 (81.0-99.0) fL MCH 28.8 (27.0-31.0) pg MCHC 32.1 (32.0-36.0) g/dL RDW 16.2 H (12.0-15.0) % Plt Count 30 L* (130-450) 10^3/uL Neut # (Auto) 4.0 (1.5-6.6) 10^3/uL Lymph # (Auto) 0.4 L (1.5-3.5) 10^3/uL [place] # (Auto) 0.3 (0.0-1.0) 10^3/uL Eos # (Auto) 0.0 (0.0-0.7) 10^3/uL Baso # (Auto) 0.0 (0.0-0.1) 10^3/uL Absolute Nucleated RBC 0.00 x10^3/uL Nucleated RBC % 0.0 /100WBC WBC Morphology NORMAL APPEARANCE (NORMAL) Platelet Estimate DECREASED (<130,000) (NORMAL) Platelet Morphology 1+ GIANT PLATELETS (NORMAL) RBC Morph Micro Appear 1+ ANISOCYTOSIS (NORMAL) ESR (0-30) mm/Hr PT (9.9-12.6) secs INR (0.8-1.2) APTT (24.9-33.3) secs Sodium 141 (135-145) mmol/L Potassium 3.8 (3.5-5.0) mmol/L Chloride 104 (101-111) mmol/L Carbon Dioxide 27 (21-32) mmol/L Anion Gap 10.0 (6-13) BUN 23 H (6-20) mg/dL Creatinine 0.6 (0.4-1.0) mg/dL Estimated GFR (MDRD) 96 (>89) Glucose 102 H (70-100) mg/dL Lactic Acid (0.5-2.2) mmol/L Calcium 9.4 (8.5-10.3) mg/dL Total Bilirubin 0.6 (0.2-1.0) mg/dL AST 33 (10-42) IU/L ALT 48 (10-60) IU/L Alkaline Phosphatase 114 (42-121) IU/L Total Creatine Kinase 49 (22-269) IU/L Troponin I High Sens (2.3-14.8) ng/L C-Reactive Protein 2.4 H (0-1.0) mg/dL Total Protein 6.2 L (6.7-8.2) g/dL Albumin 3.1 L (3.2-5.5) g/dL Globulin 3.1 (2.1-4.2) g/dL Albumin/Globulin Ratio 1.0 (1.0-2.2) Lipase 28 (22-51) U/L Vitamin B12 (180-914) pg/mL Folate (5.90 - >24.8) ng/mL TSH 1.37 (0.34-5.60) uIU/mL Urine Color Urine Clarity (CLEAR) Urine pH (5.0-7.5) PH Ur Specific [place] (1.002-1.030) Urine Protein (NEGATIVE) mg/dL Urine Glucose (UA) (NEGATIVE) mg/dL Urine Ketones (NEGATIVE) mg/dL Urine Occult Blood (NEGATIVE) Urine Nitrite (NEGATIVE) Urine Bilirubin (NEGATIVE) Urine Urobilinogen (NORMAL) E.U./dL Ur Leukocyte Esterase (NEGATIVE) Ur Microscopic Review Urine Culture Comments Salicylates < 6.0 mg/dL Urine Opiates Screen (NEGATIVE) Ur Oxycodone Screen (NEGATIVE) Urine Methadone Screen (NEGATIVE) Ur Propoxyphene Screen (NEGATIVE) Acetaminophen < 10 L (10-30) ug/mL Ur Barbiturates Screen (NEGATIVE) Ur Tricyclics Screen (NEGATIVE) Ur Phencyclidine Scrn (NEGATIVE) Ur Amphetamine Screen (NEGATIVE) U Methamphetamines Scrn (NEGATIVE) U Benzodiazepines Scrn (NEGATIVE) Urine Cocaine Screen (NEGATIVE) U Cannabinoids Screen (NEGATIVE) Ethyl Alcohol < 5.0 mg/dL Assessment/Plan - Problem List (1) Altered mental status Impression: She is still quite lethargic this morning and although she will answer questions intermittently, her answers are not always appropriate. It is not clear that this is due to underlying cognitive impairment versus an acute change in her mental status. CT of the head is unremarkable. There has been no source of infection identified at this time to suggest this may be related to infection. She is hypothermic and this may be contributing factor. Low suspicion for TTP given the lack of anemia, fever. At this time, we will continue to avoid all sedatives. We will transfer to the ICU to be rewarmed with a jovan hugger. Qualifiers: Altered mental status type: somnolence Qualified Code(s): R40.0 - Somnolence (2) Hypothermia Impression: At this point in time it is not clear what the cause of her hypothermia is. This may be related to environmental exposure. She has not been hypoglycemic and her TSH is in normal limits. We will transfer her to the intensive care unit and rewarm her with a jovan hugger. We will check a morning cortisol. We will check her blood glucose with meals ensure she does not become hypoglycemic. (3) Thrombocytopenia Impression: At this point in time, the etiology is not clear although ITP is suspected. She was recently treated with Bactrim and ciprofloxacin which can both cause thrombocytopenia. Her platelet count is 28 this morning. There is no obvious bleeding although she has multiple bruises secondary to her falls at home. She has been started on Decadron 40 mg daily for 4 days given suspicion for ITP. We will check daily CBC. We will hold off on transfusion for the time being unless there is evidence of significant bleeding. (4) Atrial fibrillation, new onset Impression: This is a new finding during this hospitalization. Her TSH is normal and her echocardiogram is relatively unremarkable except for moderate increase in left atrium volume. She is on metoprolol at home but we are currently holding this due to her heart rate being in the 50s. We will not anticoagulate her given her thrombocytopenia and her multiple falls at home. We will continue to monitor on telemetry. (5) Venous stasis dermatitis of both lower extremities Impression: She does have bilateral lower extremity venous stasis dermatitis. There is mild erythema. She does have a wound over anterior aspect of the left leg but no purulent drainage. She has been on Bactrim and ciprofloxacin recently. He has no white count and her CRP is just minimally elevated and at this point time, does not appear to be an active infection. We will obtain arterial duplex of lower extremities to evaluate her peripheral vascular disease. Will consider a wound care consult. Continue with current wound care. (6) Fracture of rib Impression: She has history of fall multiple rib fractures there is evidence of a new left rib fracture. No obvious pneumonia on imaging. Pain control with Tylenol as needed. Spirometry use. Qualifiers: Encounter type: initial encounter Rib fracture type: single rib Fracture type: closed Laterality: left Qualified Code(s): S22.32XA - Fracture of one rib, left side, initial encounter for closed fracture (7) Cognitive deficits Impression: It appears reviewing the chart that she does have cognitive impairment at [facility] and likely has dementia. It is unclear this time if she is acutely altered or if this is her baseline. It appears that her currently situation at home is not a safe environment given her multiple falls and evidence of significant trauma. Appreciate social work input regarding disposition. (8) At risk for accident in home Impression: She appears to have mild cognitive impairment at baseline and has had multiple falls with multiple areas of ecchymosis along with a rib fracture and significant scalp hematoma as well as right periorbital hematoma. At this point in time, does not appear that her current living situation is a safe environment for her. Appreciate social work input. I did speak with the patient's son, Gilmar at , and he is currently working with a trade sales assistant to try and obtain power of trademark attorney for both of his parents. He was able to do so today for his father but he is waiting for his mother to improve from her current medical condition so that she can consent to him being the power of trademark attorney. He agrees that his parents are currently not safe at home in their current environment. He spoke with his father in great detail today and his father is agreeable to assisted living. We will work closely with social work once his mother improves a medical standpoint regarding disposition as she will likely either need a SNF or assisted living.
--- NOTE | 2020-05-07 08:20 | CT Report ---
PROCEDURE: HEAD WO INDICATIONS: fall TECHNIQUE: Noncontrast 4.5 mm thick angled axial sections acquired from the foramen magnum to the vertex. For r adiation dose reduction, the following was used: automated exposure control, adjustment of mA and/or kV according to patient size. COMPARISON: None. FINDINGS: Image quality: Markedly suboptimal due to severe motion. CSF spaces: Basal cisterns are patent. No extra-axial fluid collections. Ventricles are normal in size and shape. Brain: No midline shift. No intracranial masses or hemorrhage. Davenport-white matter interface is norm al. Skull and face: Calvarium and visualized facial bones are intact, without suspicious lesions. Sinuses: Visualized sinuses and mastoids are clear. IMPRESSION: Moderate frontal scalp hematoma and swelling. No acute intracranial process. Suboptimal evaluation secondary to motion artifact. Findings are concordant with the preliminary stud y interpretation provided at the time of the study. Reviewed by: Viktor Fontaine MD on 05/07/2020 8:18 AM PST Approved by: Viktor Fontaine MD on 05/07/2020 8:18 AM PST Station ID: [id number]
--- NOTE | 2020-05-07 08:30 | CT Report ---
PROCEDURE: CERVICAL SPINE WO INDICATIONS: fall TECHNIQUE: Noncontrast 3 mm thick sections acquired from the skull base to the T4 level. Sagittal and coronal r eformats were then constructed. For radiation dose reduction, the following was used: automated exp osure control, adjustment of mA and/or kV according to patient size. COMPARISON: 12/11/2019 CT cervical spine. FINDINGS: Image quality: Suboptimal evaluation secondary to severe kyphosis.. Anterior wedging deformities and endplate irregularity of T4 and T5 keeping with lateral compression fractures, which were present on the prior study however slight interval progression in height loss w hich is age indeterminate. Recommend correlation with tenderness. No acute cervical spine fracture seen. Scattered multilevel endplate spurring and diffuse facet arthropathy. Straightening of the normal lordotic curvature. Trace anterolisthesis of C3 on C4 and grade 1 pranav listhesis of C4 on C5. Severe narrowing of the C5-C6 and C6-C7 disc spaces. 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 No paravertebral hematomas. No a pical pneumothoraces. IMPRESSION: Moderate anterior compression fractures at T4-T5, chronic since 12/11/2019, although trace interval pr ogression in height loss. Elsewhere, no acute fracture. Multilevel cervical spondylosis and facet arthropathy as above. Findings are concordant with the preliminary study interpretation provided at the time of the study. Reviewed by: Viktor Fontaine MD on 05/07/2020 8:29 AM PST Approved by: Viktor Fontaine MD on 05/07/2020 8:29 AM PST Station ID: [id number]
--- NOTE | 2020-05-07 08:37 | CT Report ---
PROCEDURE: MAXILLOFACIAL WO INDICATIONS: fall TECHNIQUE: Noncontrast 1.5 mm thick axial images acquired from the mandible through the frontal sinuses, with co pricila and sagittal reformatting. For radiation dose reduction, the following was used: automated ex posure control, adjustment of mA and/or kV according to patient size. COMPARISON: None. FINDINGS: Image quality: Excellent. Bones and teeth: Orbital grimaldo are intact. Sinus grimaldo show no fracture or deformity. Nasal bones and septum are intact. Visualized portions of the mandible demonstrate no fractures or subluxation. Zygomatic arches are intact. Pterygoid plates are intact. Visualized portions of the skull base an d auditory canals are intact. Sinuses: Paranasal sinuses are aerated, without fluid levels, mucosal thickening, or mucoceles. [place] to[place] air cells are aerated. Severe right facial soft tissue swelling. Vascular: Visualized vascular structures appear normal in the absence of contrast. Bony vascular f oramina and canals are intact. IMPRESSION: No facial fracture identified. Severe right facial soft tissue swelling. Findings are concordant with the preliminary study interpretation provided at the time of the study. Reviewed by: Viktor Fontaine MD on 05/07/2020 8:36 AM PST Approved by: Viktor Fontaine MD on 05/07/2020 8:36 AM PST Station ID: [id number]
[2020-05-07] MEDS: dexAMETHasone 4 MG TABLET PO SCH (08:59)
--- NOTE | 2020-05-07 11:41 | PHARMACY PROGRESS NOTE ---
- Best Possible Medication History Admit Date and Time: 05/06/20 1080 Processed by: Pharmacy Medication History completed: Yes Patient Interview: Pt unable to participate Secondary Source(s): Pharmacy records, Insurance records Patient has history of HCTZ and Metoprolol but no fills since January. Most recent history is for cipro and SMX/TMP. As the person ultimately responsible for medication therapy, providers are able to order a medication from an existing home medication list in [facility] via the "Reconcile Routine" prior to Confirmation of that medication by customer support assistant. Such practice is discouraged except when the physician, in their clinical judgment, deems that a medical need exists for a medication without regard to previous use.
[2020-05-07 13:59] LABS: ESTIMATED AVERAGE GLUCOSE 100 mg/dL (70-100); HEMOGLOBIN A1c% 5.1 % (4.27-6.07)
--- NOTE | 2020-05-07 17:13 | CT Report ---
PROCEDURE: CHEST W/WO INDICATIONS: rib fractures, possible pneumonia CONTRAST: IV CONTRAST: Optiray 320 ml: 80 PO CONTRAST: *NO PO CONTRAST TECHNIQUE: Noncontrast 5 mm thick sections acquired from the pulmonary apices to the posterior costophrenic angl es. After the administration of intravenous contrast, 5 mm thick sections acquired from the pulmonar y apices to the posterior costophrenic angles. 7 mm thick coronal MIP reformats were acquired. For radiation dose reduction, the following was used: automated exposure control, adjustment of mA and/o r kV according to patient size. COMPARISON: CT cervical spine dated 12/11/2019., CT spine dated 05/06/2020. FINDINGS: Image quality: Excellent. Bibasilar aspiration/atelectasis, and trace bilateral pleural fluid. Recommend clinical correlation t o exclude early or developing pneumonia. Mediastinum: Heart size is normal. Coronary artery calcifications are noted. No pericardial effusi on. No mediastinal or hilar adenopathy by size criteria. Thoracic aorta and central pulmonary arter ies are normal in size. Esophagus is normal in caliber. No hiatal hernia. Left 10th rib fracture, mildly displaced. Redemonstrated T4-T5 mild vertebral body compression fractu res; please see cervical spine CT report from today. Chronic displaced sternal fracture incidentally noted. Ill-defined right lower rib sclerosis probably from chronic fracture deformities for example i mage 261/5. Indeterminate 11 mm right renal lesion, for example image 73/4. Heterogeneous appearance of the thyro id which would be better assessed with dedicated ultrasound. Steatosis. IMPRESSION: Mildly displaced left 10th rib fracture. Indeterminate right renal lesion as above, consider further evaluation with dedicated CT protocol CT or MRI or continued ultrasound surveillance with ultrasound to document stability. Heterogeneous nodular appearance of the thyroid, technically nonspecific by CT. Consider further eval uation by dedicated ultrasound. Bibasilar aspiration/atelectasis and trace bilateral pleural effusions. Additional chronic and incidental findings as above. Findings are concordant with the preliminary study interpretation provided at the time of the study. Reviewed by: Viktor Fontaine MD on 05/07/2020 8:51 AM PST Approved by: Viktor Fontaine MD on 05/07/2020 8:51 AM PST Station ID: [id number]
[2020-05-08 05:41] LABS: BASOPHILS % (AUTO) 0.2 %; HCT - HEMATOCRIT 30.7 % (37.0-47.0); HGB - HEMOGLOBIN 9.6 g/dL (12.0-16.0); LYMPHOCYTES # (AUTO) 0.5 10^3/uL (1.5-3.5); LYMPHOCYTES % (AUTO) 7.1 %; MEAN CORPUSCULAR HEMOGLOBIN 28.3 pg (27.0-31.0); MEAN CORPUSCULAR HGB CONC 31.3 g/dL (32.0-36.0); MEAN CORPUSCULAR VOLUME 90.6 fL (81.0-99.0); MEAN PLATELET VOLUME 14.7 fL (7.9-10.8); MONOCYTES # (AUTO) 0.3 10^3/uL (0.0-1.0); MONOCYTES % (AUTO) 4.6 %; NEUTROPHILS # (AUTO) 5.6 10^3/uL (1.5-6.6); NEUTROPHILS % (AUTO) 87.8 %; PLT - PLATELET COUNT 44 10^3/uL (130-450); RED BLOOD COUNT 3.39 10^6/uL (4.20-5.40); RED CELL DISTRIBUTION WIDTH 16.9 % (12.0-15.0); WHITE BLOOD COUNT 6.4 x10^3/uL (4.8-10.8)
[2020-05-08 06:03] LABS: CALCIUM 8.7 mg/dL (8.5-10.3); CREATININE 0.7 mg/dL (0.4-1.0)
[2020-05-08] MEDS: SODIUM CHLORIDE FLUSH 0.9% 10 ML SYRINGE IVP SCH ×3 (06:51→16:06)
[2020-05-08 07:24] LABS: ALBUMIN 2.5 g/dL (3.2-5.5); PHOSPHORUS 3.8 mg/dL (2.5-4.6)
--- NOTE | 2020-05-08 07:30 | PROVIDER PROGRESS NOTE ---
Subjective - Prog Note Date Prog Note Date: 05/08/20 - Subjective Subjective: She has been off of the Don hugger since yesterday afternoon. Her temperature has remained stable without further episodes of hypothermia. She is a little more awake today but still lethargic. She is unable to tell me where she is. She cannot tell me her name, date of , and her 's name. She denies pain, difficulty breathing. Current Medications - Current Medications Current Medications: Active Medications Acetaminophen (Acetaminophen 325 Mg Tablet) 650 mg PO Q4HR PRN PRN Reason: Pain 1 to 4 Dexamethasone (Dexamethasone 4 Mg Tablet) 40 mg PO DAILY [facility] Stop: 05/10/20 09:01 Last Admin: 05/07/20 08:59 Dose: 40 mg Documented by: Ondansetron HCl (Ondansetron Odt 4 Mg Tablet) 4 mg TL Q6HR PRN PRN Reason: Nausea / Vomiting Ondansetron HCl (Ondansetron 4 Mg/2 Ml Vial) 4 mg IVP Q6HR PRN PRN Reason: Nausea / Vomiting Sodium Chloride (Sodium Chloride Flush 0.9% 10 Ml Syringe) 10 ml IVP PRN PRN PRN Reason: NEEDED PER PROVIDER ORDERS Sodium Chloride (Sodium Chloride Flush 0.9% 10 Ml Syringe) 10 ml IVP 0100,0900,1700 [facility] Last Admin: 05/08/20 06:51 Dose: Not Given Documented by: No Known Home Medications 05/07/20 Objective - Vital Signs/Intake & Output Reviewed Vital Signs: Yes Vital Signs: Vital Signs Temp Pulse Resp BP Pulse Ox 05/08/20 07:00 58 L 18 125/69 05/08/20 06:00 86 19 145/111 H 05/08/20 05:00 88 14 147/86 H 05/08/20 04:00 36.5 C 57 L 10 L 137/70 H 96 Intake & Output: Intake & Output 05/05/20 05/06/20 05/07/20 05/08/20 23:59 23:59 23:59 23:59 Intake Total 2535.000 1118 Output Total 650 0 Balance 3924.203 4858 - Objective General Appearance: positive: Lethargic (She still lethargic but will open her eyes when asked. She will mumble answers.) Eyes Bilateral: positive: Conjunctivae nml, Other (She still has right periorbital ecchymosis but the edema is improved. She is able to open her eyes today.) Respiratory: positive: No respiratory distress. negative: Wheezes, Rales Cardiovascular: positive: Irregularly irregular. negative: Tachycardia Abdomen: positive: Non-tender, No distention. negative: Tenderness Skin: positive: Other (Right forehead hematoma noted. Dressing is in place over the bilateral lower extremities.) Neurologic/Psychiatric: positive: Disoriented to place, Other (She is moving all 4 extremities. Will follow commands but is still quite lethargic. No obvious focal deficit.). negative: Disoriented to person - Lab Results Fish Bones: 05/08/20 04:22 05/08/20 04:22 Other Labs: Lab Results x24hrs 05/08/20 05/08/20 05/08/20 Range/Units 04:22 04:22 04:22 WBC 6.4 (4.8-10.8) x10^3/uL RBC 3.39 L (4.20-5.40) 10^6/uL Hgb 9.6 L (12.0-16.0) g/dL Hct 30.7 L (37.0-47.0) % MCV 90.6 (81.0-99.0) fL MCH 28.3 (27.0-31.0) pg MCHC 31.3 L (32.0-36.0) g/dL RDW 16.9 H (12.0-15.0) % Plt Count 44 L (130-450) 10^3/uL MPV 14.7 H (7.9-10.8) fL Neut # (Auto) 5.6 (1.5-6.6) 10^3/uL Lymph # (Auto) 0.5 L (1.5-3.5) 10^3/uL [place] # (Auto) 0.3 (0.0-1.0) 10^3/uL Eos # (Auto) 0.0 (0.0-0.7) 10^3/uL Baso # (Auto) 0.0 (0.0-0.1) 10^3/uL Absolute Nucleated RBC 0.00 x10^3/uL Nucleated RBC % 0.0 /100WBC Sodium 139 (135-145) mmol/L Potassium 4.0 (3.5-5.0) mmol/L Chloride 105 (101-111) mmol/L Carbon Dioxide 23 (21-32) mmol/L Anion Gap 11.0 (6-13) BUN 27 H (6-20) mg/dL Creatinine 0.7 (0.4-1.0) mg/dL Estimated GFR (MDRD) 80 L (>89) Glucose 104 H (70-100) mg/dL Estimat Average Glucose (70-100) mg/dL Hemoglobin A1c % (4.27-6.07) % Calcium 8.7 (8.5-10.3) mg/dL Phosphorus 3.8 (2.5-4.6) mg/dL Magnesium 2.0 (1.7-2.8) mg/dL Albumin 2.5 L (3.2-5.5) g/dL Nasal Screen MRSA (PCR) (NEGATIVE) 05/07/20 05/07/20 Range/Units 19:06 04:39 WBC (4.8-10.8) x10^3/uL RBC (4.20-5.40) 10^6/uL Hgb (12.0-16.0) g/dL Hct (37.0-47.0) % MCV (81.0-99.0) fL MCH (27.0-31.0) pg MCHC (32.0-36.0) g/dL RDW (12.0-15.0) % Plt Count (130-450) 10^3/uL MPV (7.9-10.8) fL Neut # (Auto) (1.5-6.6) 10^3/uL Lymph # (Auto) (1.5-3.5) 10^3/uL [place] # (Auto) (0.0-1.0) 10^3/uL Eos # (Auto) (0.0-0.7) 10^3/uL Baso # (Auto) (0.0-0.1) 10^3/uL Absolute Nucleated RBC x10^3/uL Nucleated RBC % /100WBC Sodium (135-145) mmol/L Potassium (3.5-5.0) mmol/L Chloride (101-111) mmol/L Carbon Dioxide (21-32) mmol/L Anion Gap (6-13) BUN (6-20) mg/dL Creatinine (0.4-1.0) mg/dL Estimated GFR (MDRD) (>89) Glucose (70-100) mg/dL Estimat Average Glucose 100 (70-100) mg/dL Hemoglobin A1c % 5.1 (4.27-6.07) % Calcium (8.5-10.3) mg/dL Phosphorus (2.5-4.6) mg/dL Magnesium (1.7-2.8) mg/dL Albumin (3.2-5.5) g/dL Nasal Screen MRSA (PCR) NEGATIVE (NEGATIVE) Assessment/Plan - Problem List (1) Altered mental status Impression: Although she still quite lethargic, she is improved today. She is able to converse a little more. She likely was more altered yesterday due to the hypothermia. She does appear to have cognitive impairment at baseline and I do not have a clear explanation at this time as to why she is still lethargic. CT of the head was unremarkable. There is no obvious source of infection that can explain her lethargy. She is no longer hypothermic so this should not be a contributing factor. TSH is normal. We cannot obtain MRI as this is not available at our facility for the next few days. At this time, we will continue to hold sedatives and monitor her mentation. Qualifiers: Altered mental status type: somnolence Qualified Code(s): R40.0 - Somnolence (2) Hypothermia Impression: This has resolved. The etiology is not clear. Spoke with the patient's son yesterday and after speaking with his father, he does not believe that environmental exposure played a part in this. Her TSH is normal and she has not had any hypoglycemic episodes. Cortisol has been ordered and is pending but I doubt adrenal insufficiency would be the cause of this. We will transfer her to [facility] status today. (3) Thrombocytopenia Impression: This is improving today with platelet count in the 40s. 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 We will continue Decadron 40 mg daily to complete 4 days for suspected ITP. Daily CBC. Hold pharmacologic DVT prophylaxis. (4) Atrial fibrillation, new onset Impression: This is a new finding this admission. She has been sinus bradycardic at times but this morning she is once again in atrial fibrillation. She is rate controlled without any AV kena blocking agents. She is not a candidate for anticoagulation given her thrombocytopenia and history of multiple falls. (5) Venous stasis dermatitis of both lower extremities Impression: At this point in time, there is low suspicion for active infection. She has been on both Bactrim and Floxin recently. She has no white count and her CRP was only mildly elevated. We have ordered arterial duplex which is pending to evaluate for peripheral vascular disease. We will ask wound care to see the patient. (6) Anemia Impression: Her hemoglobin has been decreasing and is now below 10. This could be dilutional given the IV fluid she received. She is at risk for bleeding given her thrombocytopenia although except for the multiple areas of ecchymosis, there has been no obvious bleeding. We will check her stool for occult blood. We will check iron studies. Vitamin B12 and folate were within normal limits. Continue to monitor her hemoglobin and for signs of bleeding. (7) Fracture of rib Impression: Stable. We will continue pain control with Tylenol as needed and incentive spirometry. Qualifiers: Encounter type: initial encounter Rib fracture type: single rib Fracture type: closed Laterality: left Qualified Code(s): S22.32XA - Fracture of one rib, left side, initial encounter for closed fracture (8) Cognitive deficits Impression: She does appear to have cognitive impairment at baseline and although her mentation is improving, she is still quite lethargic. I spoke with her son yesterday and he agrees that the patient's current living environment is not safe for her. He is agreeable to assisted living and he is working on obtaining power of corporate attorney for the patient. (9) At risk for accident in home Impression: As mentioned above, we will work closely with social work and the patient's family for safe discharge planning. The patient will need PT evaluation and likely a jail facility on discharge or assisted living.
[2020-05-08 08:56] LABS: % IRON SATURATION 12 % (20-50); IRON 33 ug/dL (28-170); TOTAL IRON BINDING CAPACITY 280 ug/dL (250-450); TRANSFERRIN 200 mg/dL (192-382)
[2020-05-08] MEDS: dexAMETHasone 4 MG TABLET PO SCH (09:00)
--- NOTE | 2020-05-08 09:41 | Ultrasound Report ---
PROCEDURE: Duplex Lwr Ext Arterial Bilat INDICATIONS: Bilateral lower extremity wounds. Edema. TECHNIQUE: Color and pulse Doppler interrogation was performed of both lower extremity arterial systems, with im age documentation. COMPARISON: None FINDINGS: Right lower extremity: Common femoral artery: 154 cm/sec, with biphasic flow. Deep femoral artery: 94 cm/sec, with biphasic flow. Proximal superficial femoral artery: 142 cm/sec, with monophasic flow. Mid superficial femoral artery: 107 cm/sec, with monophasic flow. Distal superficial femoral artery: 95 cm/sec, with monophasic flow. Popliteal artery: 105 cm/sec, with monophasic flow. Posterior tibial artery: 121 cm/sec, with monophasic flow. Anterior tibial artery/dorsalis pedis: 113 cm/sec, with monophasic flow. [place]-scale imaging description: Diffuse atherosclerotic plaque Left lower extremity: Common femoral artery: 110 cm/sec, with monophasic flow. Deep femoral artery: 89 cm/sec, with monophasic flow. Proximal superficial femoral artery: 94 cm/sec, with monophasic flow. Mid superficial femoral artery: 117 cm/sec, with monophasic flow. Distal superficial femoral artery: 96 cm/sec, with monophasic flow. Popliteal artery: 104 cm/sec, with monophasic flow. Posterior tibial artery: 124 cm/sec, with monophasic flow. Anterior tibial artery/dorsalis pedis: 59 cm/sec, with monophasic flow. [place]-scale imaging description: Diffuse atherosclerotic plaque IMPRESSION: 1. Monophasic flow with normal flow velocities in the left lower extremity. Findings could be seconda ry to left lower extremity iliac occlusive disease or left lower extremity distal small vessel diseas e. Recommend aortoiliac Doppler ultrasound for additional evaluation. 2. Monophasic flow with normal flow velocities in the right lower extremity. Finding likely related t o lower extremity distal small vessel disease Reviewed by: Rafaela Parmar MD, PhD on 05/08/2020 9:40 AM PST Approved by: Rafaela Parmar MD, PhD on 05/08/2020 9:40 AM PST Station ID: [id number]
[2020-05-08] MEDS: ACETAMINOPHEN 325 MG TABLET PO PRN (10:29)
[2020-05-08] MEDS ORDERED: LACTULOSE 10 GM /15 ML UDC PO ONE (10:54)
[2020-05-08] MEDS ORDERED: MAGNESIUM HYDROXIDE 2,400 MG/30 ML UDC PO ONE (10:54)
[2020-05-08 12:31] LABS: HEPATITIS C ANTIBODY NON-REACTIVE (NON-REACTIVE)
[2020-05-08 12:46] LABS: HIV AG/AB 4TH GEN NON-REACTIVE (NON-REACTIVE)
[2020-05-08] MEDS: MULTIVITAMIN W/MINERALS TABLET PO SCH (16:06)
[2020-05-09] MEDS: SODIUM CHLORIDE FLUSH 0.9% 10 ML SYRINGE IVP SCH ×3 (00:42→16:21)
[2020-05-09 06:05] LABS: BASOPHILS % (AUTO) 0.1 %; EOSINOPHILS # (AUTO) 0.2 10^3/uL (0.0-0.7); HCT - HEMATOCRIT 33.2 % (37.0-47.0); HGB - HEMOGLOBIN 10.7 g/dL (12.0-16.0); LYMPHOCYTES # (AUTO) 0.6 10^3/uL (1.5-3.5); LYMPHOCYTES % (AUTO) 6.6 %; MEAN CORPUSCULAR HEMOGLOBIN 28.8 pg (27.0-31.0); MEAN CORPUSCULAR HGB CONC 32.2 g/dL (32.0-36.0); MEAN CORPUSCULAR VOLUME 89.2 fL (81.0-99.0); MEAN PLATELET VOLUME 12.9 fL (7.9-10.8); MONOCYTES # (AUTO) 0.6 10^3/uL (0.0-1.0); MONOCYTES % (AUTO) 6.7 %; NEUTROPHILS % (AUTO) 84.2 %; PLT - PLATELET COUNT 72 10^3/uL (130-450); RED BLOOD COUNT 3.72 10^6/uL (4.20-5.40); RED CELL DISTRIBUTION WIDTH 16.9 % (12.0-15.0); WHITE BLOOD COUNT 8.3 x10^3/uL (4.8-10.8)
[2020-05-09 06:13] LABS: CREATININE 0.6 mg/dL (0.4-1.0)
[2020-05-09 06:28] LABS: MAGNESIUM 2.2 mg/dL (1.7-2.8); PHOSPHORUS 3.2 mg/dL (2.5-4.6)
[2020-05-09] MEDS ORDERED: LACTATED RINGERS 1,000 ML IV ONE (07:26)
[2020-05-09] MEDS: ACETAMINOPHEN 325 MG TABLET PO PRN ×2 (09:46→18:07)
[2020-05-09] MEDS: dexAMETHasone 4 MG TABLET PO SCH (09:46)
[2020-05-09] MEDS: MULTIVITAMIN W/MINERALS TABLET PO SCH (09:47)
[2020-05-09] MEDS: polyethylene glycoL 3350 17 GM PACKET PO SCH (09:47)
[2020-05-09 10:23] LABS: B. PARAPERTUSSIS- RESP PCR PAN NOT DETECTED; B. PERTUSSIS- RESP PCR PANEL NOT DETECTED; C. PNEUMONIAE- RESP PCR PANEL NOT DETECTED; CORONAVIRUS 229E-RESP PCR NOT DETECTED; CORONAVIRUS HKU1-RESP PCR NOT DETECTED; CORONAVIRUS NL63-RESP PCR NOT DETECTED; CORONAVIRUS OC43-RESP PCR NOT DETECTED; HUMAN METAPNEUMOVIRUS NOT DETECTED; INFLUENZA A- RESP PCR PANEL NOT DETECTED; INFLUENZA B - RESP PCR PANEL NOT DETECTED; M. PNEUMONIAE- RESP PCR PANEL NOT DETECTED; PARAINFLUENZA VIRUS 1 NOT DETECTED; PARAINFLUENZA VIRUS 2 NOT DETECTED; PARAINFLUENZA VIRUS 3 NOT DETECTED; PARAINFLUENZA VIRUS 4 NOT DETECTED; RHINOVIRUS/ENTEROVIRUS NOT DETECTED; RSV- RESP PCR PANEL NOT DETECTED; SARS-CoV-2 -RESP PCR PANEL NOT DETECTED
--- NOTE | 2020-05-09 10:41 | XRAY Report ---
PROCEDURE: Chest 1 View X-Ray INDICATIONS: Hypoxia. TECHNIQUE: One view of the chest was acquired. COMPARISON: 05/06/2020 FINDINGS: Surgical changes and devices: None. Lungs and pleura: There is a developing opacity seen involving the left upper lobe. Poorly defined op acity is also seen involving the left costophrenic angle. No large pneumothorax can be seen on this s emiupright study. Mediastinum: The aorta is prominent and tortuous. The cardiac contours are within normal limits. Bones and chest wall: Age-appropriate degenerative changes are seen. The previously described left 10th rib fracture is not well seen on this study. No suspicious bony lesions. Overlying soft tissue s appear unremarkable. IMPRESSION: Developing opacity seen within the left upper lobe, which is attributed to infiltrate. Poorly defined opacity is also seen at the left lung base, which is nonspecific, yet likely related t o pleural effusion with overlying atelectasis. If it would be helpful for clinical management decision making, please consider a dedicated chest CT with IV contrast for further evaluation (assuming that there is no contraindication). Reviewed by: Mehul Barber MD on 05/09/2020 9:[address] [facility] Approved by: Mehul Barber MD on 05/09/2020 9:[address] [facility] Station ID: [id number]
[2020-05-09] MEDS: SENNA 8.6 MG TABLET PO SCH (11:21)
--- NOTE | 2020-05-09 11:24 | PROVIDER PROGRESS NOTE ---
Subjective - Prog Note Date Prog Note Date: 05/09/20 - Subjective Subjective: She denies any pain but states she does feel little short of breath this morning. She states that she is talking to her who is next to her although no one is present in the room. She has been eating well. Current Medications - Current Medications Current Medications: Active Medications Acetaminophen (Acetaminophen 325 Mg Tablet) 650 mg PO Q4HR PRN PRN Reason: Pain 1 to 4 Last Admin: 05/09/20 09:46 Dose: 650 mg Documented by: Dexamethasone (Dexamethasone 4 Mg Tablet) 40 mg PO DAILY [facility] Stop: 05/10/20 09:01 Last Admin: 05/09/20 09:46 Dose: 40 mg Documented by: Piperacillin Sod/Tazobactam (Sod 4.5 gm/ Sodium Chloride) 100 mls @ 200 mls/hr IV ONCE ONE Stop: 05/09/20 12:29 Multivitamins/Minerals (Multivitamin W/Minerals Tablet) 1 tab PO DAILYWM [facility] Last Admin: 05/09/20 09:47 Dose: 1 tab Documented by: Ondansetron HCl (Ondansetron Odt 4 Mg Tablet) 4 mg TL Q6HR PRN PRN Reason: Nausea / Vomiting Ondansetron HCl (Ondansetron 4 Mg/2 Ml Vial) 4 mg IVP Q6HR PRN PRN Reason: Nausea / Vomiting Polyethylene Glycol (Polyethylene Glycol 3350 17 Gm Packet) 17 gm PO DAILY [facility] Last Admin: 05/09/20 09:47 Dose: Not Given Documented by: Senna (Senna 8.6 Mg Tablet) 8.6 - 17.2 mg PO DAILY [facility] Last Admin: 05/09/20 11:21 Dose: 17.2 mg Documented by: Sodium Chloride (Sodium Chloride Flush 0.9% 10 Ml Syringe) 10 ml IVP PRN PRN PRN Reason: NEEDED PER PROVIDER ORDERS Sodium Chloride (Sodium Chloride Flush 0.9% 10 Ml Syringe) 10 ml IVP 0100,0900,1700 [facility] Last Admin: 05/09/20 09:47 Dose: 10 ml Documented by: No Known Home Medications 05/07/20 Objective - Vital Signs/Intake & Output Reviewed Vital Signs: Yes Vital Signs: Vital Signs x48h Temp Pulse Resp BP Pulse Ox 05/09/20 10:05 85 L 05/09/20 08:14 36.3 C L 56 L 16 156/82 H 88 L 05/09/20 05:22 93 05/09/20 05:00 36.9 C 83 13 97 Intake & Output: Intake & Output 05/06/20 05/07/20 05/08/20 05/09/20 23:59 23:59 23:59 23:59 Intake Total 2535.000 1676 0 Output Total 650 500 625 Balance 9640.086 2636 -625 - Objective General Appearance: positive: No acute distress, Alert Eyes Bilateral: positive: Conjunctivae nml, Other (Has right periorbital ecchymosis but the edema has significantly improved. She is now able to open her eye.) ENT: positive: ENT inspection nml Neck: positive: Nml inspection Respiratory: positive: No respiratory distress Abdomen: positive: Non-tender, No distention. negative: Tenderness Skin: positive: Other (Still significant ecchymosis over the right side of her face although this is slowly improving. Left lower extremity wound with purulent drainage. She has bilateral erythema consistent with venous stasis.) Extremities: positive: Pedal edema (She has +1 pitting edema over her bilateral lower extremities.) Neurologic/Psychiatric: positive: Disoriented to place, Disoriented to time, Other (Density soft but she is unable to tell me where she is. She appears to be hallucinating as she states her is present in the room.). negative: Disoriented to person - Lab Results Fish Bones: 05/09/20 05:25 05/09/20 05:25 Other Labs: Lab Results x24hrs 05/09/20 05/09/20 05/09/20 Range/Units 09:26 05:25 05:25 WBC (4.8-10.8) x10^3/uL RBC (4.20-5.40) 10^6/uL Hgb (12.0-16.0) g/dL Hct (37.0-47.0) % MCV (81.0-99.0) fL MCH (27.0-31.0) pg MCHC (32.0-36.0) g/dL RDW (12.0-15.0) % Plt Count (130-450) 10^3/uL MPV (7.9-10.8) fL Neut # (Auto) (1.5-6.6) 10^3/uL Lymph # (Auto) (1.5-3.5) 10^3/uL Haakon # (Auto) (0.0-1.0) 10^3/uL Eos # (Auto) (0.0-0.7) 10^3/uL Baso # (Auto) (0.0-0.1) 10^3/uL Absolute Nucleated RBC x10^3/uL Nucleated RBC % /100WBC Sodium 139 (135-145) mmol/L Potassium 4.0 (3.5-5.0) mmol/L Chloride 103 (101-111) mmol/L Carbon Dioxide 26 (21-32) mmol/L Anion Gap 10.0 (6-13) BUN 33 H (6-20) mg/dL Creatinine 0.6 (0.4-1.0) mg/dL Estimated GFR (MDRD) 96 (>89) Glucose 130 H (70-100) mg/dL Calcium 9.0 (8.5-10.3) mg/dL Phosphorus 3.2 (2.5-4.6) mg/dL Magnesium 2.2 (1.7-2.8) mg/dL Nasal Adenovirus (PCR) NOT DETECTED Nasal B. parapertussis DNA (PCR) NOT DETECTED Nasal Coronavir 229E PCR NOT DETECTED Nasal Coronavir HKU1 PCR NOT DETECTED Nasal Coronavir NL63 PCR NOT DETECTED Nasal Coronavir OC43 PCR NOT DETECTED Nasal Enterovir/Rhinovir PCR NOT DETECTED Nasal Influenza B PCR NOT DETECTED Nasal Influenza A PCR NOT DETECTED Nasal Parainfluen 1 PCR NOT DETECTED Nasal Parainfluen 2 PCR NOT DETECTED Nasal Parainfluen 3 PCR NOT DETECTED Nasal Parainfluen 4 PCR NOT DETECTED Nasal RSV (PCR) NOT DETECTED Nasal B.pertussis DNA PCR NOT DETECTED Nasal C.pneumoniae (PCR) NOT DETECTED Mohinder Human Metapneumo PCR NOT DETECTED Nasal M.pneumoniae (PCR) NOT DETECTED Nasal SARS-CoV-2 (PCR) NOT DETECTED Hepatitis C Antibody (NON-REACTIVE) Hep C Ab Signal/Cutoff (<1.00) HIV 1&2 Ag/Ab, 4th Gen (NON-REACTIVE) 05/09/20 05/07/20 05/07/20 Range/Units 05:25 04:39 04:39 WBC 8.3 (4.8-10.8) x10^3/uL RBC 3.72 L (4.20-5.40) 10^6/uL Hgb 10.7 L (12.0-16.0) g/dL Hct 33.2 L (37.0-47.0) % MCV 89.2 (81.0-99.0) fL MCH 28.8 (27.0-31.0) pg MCHC 32.2 (32.0-36.0) g/dL RDW 16.9 H (12.0-15.0) % Plt Count 72 L (130-450) 10^3/uL MPV 12.9 H (7.9-10.8) fL Neut # (Auto) 7.0 H (1.5-6.6) 10^3/uL Lymph # (Auto) 0.6 L (1.5-3.5) 10^3/uL Haakon # (Auto) 0.6 (0.0-1.0) 10^3/uL Eos # (Auto) 0.2 (0.0-0.7) 10^3/uL Baso # (Auto) 0.0 (0.0-0.1) 10^3/uL Absolute Nucleated RBC 0.00 x10^3/uL Nucleated RBC % 0.0 /100WBC Sodium (135-145) mmol/L Potassium (3.5-5.0) mmol/L Chloride (101-111) mmol/L Carbon Dioxide (21-32) mmol/L Anion Gap (6-13) BUN (6-20) mg/dL Creatinine (0.4-1.0) mg/dL Estimated GFR (MDRD) (>89) Glucose (70-100) mg/dL Calcium (8.5-10.3) mg/dL Phosphorus (2.5-4.6) mg/dL Magnesium (1.7-2.8) mg/dL Nasal Adenovirus (PCR) Nasal B. parapertussis DNA (PCR) Nasal Coronavir 229E PCR Nasal Coronavir HKU1 PCR Nasal Coronavir NL63 PCR Nasal Coronavir OC43 PCR Nasal Enterovir/Rhinovir PCR Nasal Influenza B PCR Nasal Influenza A PCR Nasal Parainfluen 1 PCR Nasal Parainfluen 2 PCR Nasal Parainfluen 3 PCR Nasal Parainfluen 4 PCR Nasal RSV (PCR) Nasal B.pertussis DNA PCR Nasal C.pneumoniae (PCR) Mohinder Human Metapneumo PCR Nasal M.pneumoniae (PCR) Nasal SARS-CoV-2 (PCR) Hepatitis C Antibody NON-REACTIVE (NON-REACTIVE) Hep C Ab Signal/Cutoff 0.00 (<1.00) HIV 1&2 Ag/Ab, 4th Gen NON-REACTIVE (NON-REACTIVE) Assessment/Plan - Problem List (1) Hospital-acquired pneumonia Impression: She was noted to be hypoxic this morning with a saturation of 85% on room air. She also complained of dyspnea. Her white count is within normal limits but increased compared to her baseline for which she is usually leukopenic. She does not have a fever. A repeat chest x-ray was obtained today given initial imaging was unremarkable for infiltrates. This repeat x-ray was concerning for a developing left upper lobe infiltrate. Given her hypoxia and dyspnea, we will treat her for hospital-acquired pneumonia. We will start her on Zosyn IV given there may potentially be a concern for aspiration as well given her severe kyphosis. We will check a MRSA screen at this is negative we will hold off on vancomycin. We will switch her diet to pured diet. We will ask speech therapy to see her once available for swallow eval. We will encourage patient to get up and out of bed and to use spirometry. (2) Altered mental status Impression: She is much more alert today and able to participate in a conversation. She does appear to have some visual hallucinations as she tells me her is present in the room and she will attempt to speak to him. She is oriented to self but not to location or time. I suspect this may be exacerbated by her infection and hypoxia in a patient who already has baseline cognitive deficits. We will continue to avoid sedatives. We will treat underlying pneumonia with antibiotics as mentioned above. Qualifiers: Altered mental status type: somnolence Qualified Code(s): R40.0 - Somnolence (3) Thrombocytopenia Impression: Her platelet count continues to improve. 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 We will continue Decadron for total of 4 days given the improvement. She will need a repeat CBC on outpatient basis once discharged. (4) Open wound of both lower extremities Impression: There is purulent drainage noted today from her left lower extremity wound and slight drainage from the right wound. There is mild erythema bilaterally but suspect this is due to chronic venous stasis changes. We have started her on Zosyn given the pneumonia and this would also cover any potential wound infection. I have also sent the purulent drainage for culture. Her lower extremity arterial Dopplers showed monophasic flow but with good velocities. An aortoiliac duplex was recommended and this has been ordered. I was unable to get a hold of wound care yesterday but we will ask them to see the patient on Monday. Qualifiers: Encounter type: subsequent encounter Qualified Code(s): S81.801D - Unspecified open wound, right lower leg, subsequent encounter; S81.802D - Unspe cified open wound, left lower leg, subsequent encounter (5) Atrial fibrillation, new onset Impression: She is rate controlled and has converted back to sinus rhythm. We are holding anticoagulation given thrombocytopenia and her history of frequent falls. We will hold off on AV kena blocking agents for the time being given her heart rate has been stable and controlled in the 50s to 60. (6) Anemia Impression: Her hemoglobin is increased today and her iron studies are suggestive of anemia of chronic disease. Continue to check CBC on daily basis. (7) Fracture of rib Impression: Continue with spirometry and Tylenol as needed for pain. Qualifiers: Encounter type: initial encounter Rib fracture type: single rib Fracture type: closed Laterality: left Qualified Code(s): S22.32XA - Fracture of one rib, left side, initial encounter for closed fracture (8) Cognitive deficits Impression: She does have baseline cognitive deficits and currently appears to have some visual hallucinations. This may be exacerbated by her infection. We will treat dental infection as mentioned above. She will need either skilled nurse facility or assisted living facility on discharge. (9) At risk for accident in home Impression: As mentioned above, she will continue to work with physical therapy to discuss disposition but likely suspect she will need a custodial facility or assisted living. (10) Hypothermia Impression: This has resolved. The etiology of this has not been clear. Her TSH was within normal limits. Although her morning cortisol was decreased, this was drawn after she had already received Decadron for suspected ITP. She does not have evidence of adrenal insufficiency so we will hold off on further work-up.
[2020-05-09] MEDS ORDERED: PIPERACILLIN/TAZOBACTAM 4.5 GM in SODIUM CHLORIDE 0.9% MINIBAG 100 ML IV ONE (12:00)
[2020-05-09] MEDS: SODIUM CHLORIDE 0.9% 500 ML IV PRN (15:00)
[2020-05-09] MEDS: PIPERACILLIN/TAZOBACTAM 4.5 GM in SODIUM CHLORIDE 0.9% MINIBAG 100 ML IV SCH (16:20)
[2020-05-09] MEDS: METOPROLOL TARTRATE 25 MG TABLET PO SCH (20:00)
[2020-05-10] MEDS: PIPERACILLIN/TAZOBACTAM 4.5 GM in SODIUM CHLORIDE 0.9% MINIBAG 100 ML IV SCH ×3 (00:20→16:09)
[2020-05-10] MEDS: SODIUM CHLORIDE FLUSH 0.9% 10 ML SYRINGE IVP SCH ×3 (00:21→16:10)
[2020-05-10] MEDS: SODIUM CHLORIDE 0.9% 500 ML IV PRN (02:08)
[2020-05-10 02:45] LABS: H. PYLORIS ANTIGEN STL NEGATIVE (Negative)
[2020-05-10 05:17] LABS: BASOPHILS % (AUTO) 0.3 %; HCT - HEMATOCRIT 35.4 % (37.0-47.0); LYMPHOCYTES # (AUTO) 0.5 10^3/uL (1.5-3.5); LYMPHOCYTES % (AUTO) 6.6 %; MEAN CORPUSCULAR HEMOGLOBIN 28.1 pg (27.0-31.0); MEAN CORPUSCULAR HGB CONC 31.1 g/dL (32.0-36.0); MEAN CORPUSCULAR VOLUME 90.5 fL (81.0-99.0); MONOCYTES # (AUTO) 0.7 10^3/uL (0.0-1.0); MONOCYTES % (AUTO) 8.6 %; NEUTROPHILS # (AUTO) 6.4 10^3/uL (1.5-6.6); NEUTROPHILS % (AUTO) 83.7 %; NRBC ABSOLUTE COUNT (AUTO) 0.02 x10^3/uL; NUCLEATED RED BLOOD CELLS AUTO 0.3 /100WBC; PLT - PLATELET COUNT 95 10^3/uL (130-450); RED BLOOD COUNT 3.91 10^6/uL (4.20-5.40); RED CELL DISTRIBUTION WIDTH 16.6 % (12.0-15.0); WHITE BLOOD COUNT 7.7 x10^3/uL (4.8-10.8)
[2020-05-10 05:21] LABS: CALCIUM 8.4 mg/dL (8.5-10.3); CREATININE 0.6 mg/dL (0.4-1.0); POTASSIUM 3.4 mmol/L (3.5-5.0)
--- NOTE | 2020-05-10 07:21 | PROVIDER PROGRESS NOTE ---
Subjective - Prog Note Date Prog Note Date: 05/10/20 - Subjective Subjective: She still is on believe that she is in the hospital at the moment. She believes that we are lying to her and trying to harm her. She denies feeling short of breath. Reports no abdominal pain. Has no cough. Current Medications - Current Medications Current Medications: Active Medications Acetaminophen (Acetaminophen 325 Mg Tablet) 650 mg PO Q4HR PRN PRN Reason: Pain 1 to 4 Last Admin: 05/10/20 08:05 Dose: 650 mg Documented by: Piperacillin Sod/Tazobactam (Sod 4.5 gm/ Sodium Chloride) 100 mls @ 25 mls/hr IV Q8H [facility] Last Admin: 05/10/20 16:09 Dose: 25 mls/hr Documented by: Sodium Chloride (Normal Saline 0.9%) 500 mls @ 0 mls/hr IV Q24H PRN PRN Reason: TKO RATE Last Admin: 05/10/20 02:08 Dose: 20 mls/hr Documented by: Metoprolol Tartrate (Metoprolol Tartrate 25 Mg Tablet) 25 mg PO BID [facility] Last Admin: 05/10/20 08:09 Dose: 25 mg Documented by: Multivitamins/Minerals (Multivitamin W/Minerals Tablet) 1 tab PO DAILYWM [facility] Last Admin: 05/10/20 08:06 Dose: 1 tab Documented by: Ondansetron HCl (Ondansetron Odt 4 Mg Tablet) 4 mg TL Q6HR PRN PRN Reason: Nausea / Vomiting Ondansetron HCl (Ondansetron 4 Mg/2 Ml Vial) 4 mg IVP Q6HR PRN PRN Reason: Nausea / Vomiting Polyethylene Glycol (Polyethylene Glycol 3350 17 Gm Packet) 17 gm PO DAILY [facility] Last Admin: 05/10/20 08:06 Dose: Not Given Documented by: Senna (Senna 8.6 Mg Tablet) 8.6 - 17.2 mg PO DAILY [facility] Last Admin: 05/10/20 08:06 Dose: 8.6 mg Documented by: Sodium Chloride (Sodium Chloride Flush 0.9% 10 Ml Syringe) 10 ml IVP PRN PRN PRN Reason: NEEDED PER PROVIDER ORDERS Last Admin: 05/09/20 12:46 Dose: 10 ml Documented by: Sodium Chloride (Sodium Chloride Flush 0.9% 10 Ml Syringe) 10 ml IVP 0 100,0900,1700 [facility] Last Admin: 05/10/20 16:10 Dose: 10 ml Documented by: No Known Home Medications 05/07/20 Objective - Vital Signs/Intake & Output Reviewed Vital Signs: Yes Vital Signs: Vital Signs x48h Temp Pulse Resp BP BP Pulse Ox 05/10/20 06:46 68 168/81 H 05/10/20 04:22 36.4 C L 64 20 168/108 H 93 05/10/20 00:00 36.5 C 74 20 160/90 H 96 Intake & Output: Intake & Output 05/07/20 05/08/20 05/09/20 05/10/20 23:59 23:59 23:59 23:59 Intake Total 2535.000 1676 1748 202 Output Total 644 201 9288 725 Balance 0348.387 4945 -277 -523 - Objective General Appearance: positive: No acute distress, Alert Eyes Bilateral: positive: Conjunctivae nml, Other (Right periorbital ecchymosis noted. Edema continues to improve.) ENT: positive: Other (Multiple areas of ecchymosis noted over the right side of her face including the lip.) Neck: positive: Nml inspection Respiratory: positive: No respiratory distress, Rales, Other (Diminished bilaterally). negative: Wheezes Cardiovascular: positive: Regular rate & rhythm, No murmur. negative: Tachycardia Abdomen: positive: Non-tender, No distention. negative: Tenderness Skin: positive: Warm, Dry, Other (Dressing is in place over the bilateral lower extremities) Extremities: positive: Pedal edema (+1 pitting edema in bilateral lower extremities) Neurologic/Psychiatric: positive: Disoriented to place, Disoriented to time. negative: Disoriented to person - Lab Results Fish Bones: 05/10/20 05:01 05/10/20 05:01 Other Labs: Lab Results x24hrs 05/10/20 05/10/20 05/10/20 Range/Units 05:01 05:01 05:01 WBC 7.7 (4.8-10.8) x10^3/uL RBC 3.91 L (4.20-5.40) 10^6/uL Hgb 11.0 L (12.0-16.0) g/dL Hct 35.4 L (37.0-47.0) % MCV 90.5 (81.0-99.0) fL MCH 28.1 (27.0-31.0) pg MCHC 31.1 L (32.0-36.0) g/dL RDW 16.6 H (12.0-15.0) % Plt Count 95 L (130-450) 10^3/uL MPV 12.0 H (7.9-10.8) fL Neut # (Auto) 6.4 (1.5-6.6) 10^3/uL Lymph # (Auto) 0.5 L (1.5-3.5) 10^3/uL [place] # (Auto) 0.7 (0.0-1.0) 10^3/uL Eos # (Auto) 0.0 (0.0-0.7) 10^3/uL Baso # (Auto) 0.0 (0.0-0.1) 10^3/uL Absolute Nucleated RBC 0.02 x10^3/uL Nucleated RBC % 0.3 /100WBC Sodium 136 (135-145) mmol/L Potassium 3.4 L (3.5-5.0) mmol/L Chloride 102 (101-111) mmol/L Carbon Dioxide 24 (21-32) mmol/L Anion Gap 10.0 (6-13) BUN 30 H (6-20) mg/dL Creatinine 0.6 (0.4-1.0) mg/dL Estimated GFR (MDRD) 96 (>89) Glucose 123 H (70-100) mg/dL Calcium 8.4 L (8.5-10.3) mg/dL Ammonia 27.4 (7-35) umol/L Nasal Adenovirus (PCR) Nasal B. parapertussis DNA (PCR) Nasal Coronavir 229E PCR Nasal Coronavir HKU1 PCR Nasal Coronavir NL63 PCR Nasal Coronavir OC43 PCR Nasal Enterovir/Rhinovir PCR Nasal Influenza B PCR Nasal Influenza A PCR Nasal Parainfluen 1 PCR Nasal Parainfluen 2 PCR Nasal Parainfluen 3 PCR Nasal Parainfluen 4 PCR Nasal RSV (PCR) Nasal Screen MRSA (PCR) (NEGATIVE) Nasal B.pertussis DNA PCR Nasal C.pneumoniae (PCR) Mohinder Human Metapneumo PCR Nasal M.pneumoniae (PCR) Nasal SARS-CoV-2 (PCR) Stool H. pylori Ag (Negative) 05/10/20 05/09/20 05/09/20 Range/Units 00:00 12:32 09:26 WBC (4.8-10.8) x10^3/uL RBC (4.20-5.40) 10^6/uL Hgb (12.0-16.0) g/dL Hct (37.0-47.0) % MCV (81.0-99.0) fL MCH (27.0-31.0) pg MCHC (32.0-36.0) g/dL RDW (12.0-15.0) % Plt Count (130-450) 10^3/uL MPV (7.9-10.8) fL Neut # (Auto) (1.5-6.6) 10^3/uL Lymph # (Auto) (1.5-3.5) 10^3/uL [place] # (Auto) (0.0-1.0) 10^3/uL Eos # (Auto) (0.0-0.7) 10^3/uL Baso # (Auto) (0.0-0.1) 10^3/uL Absolute Nucleated RBC x10^3/uL Nucleated RBC % /100WBC Sodium (135-145) mmol/L Potassium (3.5-5.0) mmol/L Chloride (101-111) mmol/L Carbon Dioxide (21-32) mmol/L Anion Gap (6-13) BUN (6-20) mg/dL Creatinine (0.4-1.0) mg/dL Estimated GFR (MDRD) (>89) Glucose (70-100) mg/dL Calcium (8.5-10.3) mg/dL Ammonia (7-35) umol/L Nasal Adenovirus (PCR) NOT DETECTED Nasal B. parapertussis DNA (PCR) NOT DETECTED Nasal Coronavir 229E PCR NOT DETECTED Nasal Coronavir HKU1 PCR NOT DETECTED Nasal Coronavir NL63 PCR NOT DETECTED Nasal Coronavir OC43 PCR NOT DETECTED Nasal Enterovir/Rhinovir PCR NOT DETECTED Nasal Influenza B PCR NOT DETECTED Nasal Influenza A PCR NOT DETECTED Nasal Parainfluen 1 PCR NOT DETECTED Nasal Parainfluen 2 PCR NOT DETECTED Nasal Parainfluen 3 PCR NOT DETECTED Nasal Parainfluen 4 PCR NOT DETECTED Nasal RSV (PCR) NOT DETECTED Nasal Screen MRSA (PCR) NEGATIVE (NEGATIVE) Nasal B.pertussis DNA PCR NOT DETECTED Nasal C.pneumoniae (PCR) NOT DETECTED Mohinder Human Metapneumo PCR NOT DETECTED Nasal M.pneumoniae (PCR) NOT DETECTED Nasal SARS-CoV-2 (PCR) NOT DETECTED Stool H. pylori Ag NEGATIVE (Negative) ABX Reporting Has patient been on IV antibiotics over the past 48 hours?: Yes Assessment/Plan - Problem List (1) Hospital-acquired pneumonia Impression: Remains hypoxic but her oxygen requirements appear to be improving. She was around 90% on room air today. She has declined to wear her oxygen many times throughout the day but we have continued to encourage her to wear it. X-ray yesterday was concerning for developing left upper lobe infiltrate. Today is day 2 of Zosyn IV. She is not on vancomycin given the negative MRSA screen. Fortunately she appears to be improving and we will continue the antibiotics and repeat a chest x-ray tomorrow. (2) Altered mental status Impression: She continues to be altered and family saw her today and states that she is more confused than usual. She does recognize her pain members and they both participate in a conversation but she believes she is at home. Suspect this may be due to the hypoxia as well as the pneumonia. We will continue to encourage her to wear the nasal cannula and continue with antibiotics to treat underlying pneumonia. Her head CT on admission was unremarkable so we will hold off on repeating this. Qualifiers: Altered mental status type: somnolence Qualified Code(s): R40.0 - Somnolence (3) Thrombocytopenia Impression: Her thrombocytopenia continues to improve. We are treating her for suspected ITP with Decadron. This may also potentially been drug-induced given she was on Bactrim and ciprofloxacin recently. Today is the last day of Decadron. Daily CBC. (4) Open wound of both lower extremities Impression: Wound culture from the left lower extremity is growing Pseudomonas. This did appear to be infected given the purulent drainage yesterday. We will keep her on Zosyn given she is on this for the pneumonia. We will attempt to have wound care see her tomorrow. We did attempt to obtain an aortoiliac Doppler recommended by radiology given her monophasic flow on lower extremity duplex but the patient has been refusing this. We will try this again tomorrow. Qualifiers: Encounter type: subsequent encounter Qualified Code(s): S81.801D - Unspecified open wound, right lower leg, subsequent encounter; S81.802D - Unspecified open wound, left lower leg, subsequent encounter (5) Hypertension Impression: Her blood pressure has been elevated over the past 24 hours and I suspect this is likely related to the use of Decadron. Her systolic has been in the 150s to 160s. We did start metoprolol last night and will continue to monitor at this time. I suspect her blood pressure will improve once she finishes her Decadron. We can consider a second hypertensive if needed but would like to avoid amlodipine and hydralazine given her chronic lower extremity edema. We could consider lisinopril. Qualifiers: Hypertension type: essential hypertension Qualified Code(s): I10 - Essential (primary) hypertension (6) Atrial fibrillation, new onset Impression: She remains rate controlled and is currently in a sinus rhythm. We will continue with metoprolol. No anticoagulation given her multiple falls and significant ecchymosis. (7) Anemia Impression: Hemoglobin remained stable and is improving. Her iron studies were suggestive of anemia of chronic disease. Her stool was negative for occult blood. Continue to monitor. (8) Fracture of rib Impression: We will continue with Tylenol as needed and spirometry use. Qualifiers: Encounter type: initial encounter Rib fracture type: single rib Fracture type: closed Laterality: left Qualified Code(s): S22.32XA - Fracture of one rib, left side, initial encounter for closed fracture (9) Cognitive deficits Impression: She does have baseline cognitive deficits and currently appears to be more altered. This may be exacerbated by her infection and hypoxia. We will treat her infection as mentioned above. She will need either skilled nurse facility or assisted living facility on discharge. (10) At risk for accident in home Impression: As mentioned above, she will continue to work with physical therapy to discuss disposition but likely suspect she will need a [facility] facility or assisted living. (11) Hypothermia Impression: Resolved.
[2020-05-10] MEDS: ACETAMINOPHEN 325 MG TABLET PO PRN ×2 (08:05→20:40)
[2020-05-10] MEDS: SENNA 8.6 MG TABLET PO SCH (08:06)
[2020-05-10] MEDS: polyethylene glycoL 3350 17 GM PACKET PO SCH (08:06)
[2020-05-10] MEDS: MULTIVITAMIN W/MINERALS TABLET PO SCH (08:06)
[2020-05-10] MEDS: dexAMETHasone 4 MG TABLET PO SCH (08:06)
[2020-05-10] MEDS: METOPROLOL TARTRATE 25 MG TABLET PO SCH ×2 (08:09→20:40)
[2020-05-11] MEDS: PIPERACILLIN/TAZOBACTAM 4.5 GM in SODIUM CHLORIDE 0.9% MINIBAG 100 ML IV SCH ×3 (00:40→16:46)
[2020-05-11] MEDS: SODIUM CHLORIDE FLUSH 0.9% 10 ML SYRINGE IVP SCH ×3 (02:10→16:42)
[2020-05-11] MEDS: SODIUM CHLORIDE 0.9% 500 ML IV PRN ×2 (02:36→21:06)
[2020-05-11 08:23] LABS: BASOPHILS % (AUTO) 0.1 %; HGB - HEMOGLOBIN 11.6 g/dL (12.0-16.0); LYMPHOCYTES # (AUTO) 0.8 10^3/uL (1.5-3.5); LYMPHOCYTES % (AUTO) 8.9 %; MEAN CORPUSCULAR HEMOGLOBIN 28.8 pg (27.0-31.0); MEAN CORPUSCULAR HGB CONC 33.1 g/dL (32.0-36.0); MEAN CORPUSCULAR VOLUME 86.8 fL (81.0-99.0); MEAN PLATELET VOLUME 11.7 fL (7.9-10.8); MONOCYTES # (AUTO) 0.9 10^3/uL (0.0-1.0); NEUTROPHILS # (AUTO) 6.8 10^3/uL (1.5-6.6); NEUTROPHILS % (AUTO) 79.3 %; PLT - PLATELET COUNT 138 10^3/uL (130-450); RED BLOOD COUNT 4.03 10^6/uL (4.20-5.40); RED CELL DISTRIBUTION WIDTH 16.1 % (12.0-15.0); WHITE BLOOD COUNT 8.6 x10^3/uL (4.8-10.8)
[2020-05-11 08:32] LABS: CALCIUM 8.3 mg/dL (8.5-10.3); CREATININE 0.6 mg/dL (0.4-1.0); POTASSIUM 2.9 mmol/L (3.5-5.0)
[2020-05-11] MEDS: MULTIVITAMIN W/MINERALS TABLET PO SCH (09:00)
[2020-05-11] MEDS: polyethylene glycoL 3350 17 GM PACKET PO SCH (09:00)
[2020-05-11] MEDS: ACETAMINOPHEN 325 MG TABLET PO PRN ×3 (09:00→21:05)
[2020-05-11] MEDS: SENNA 8.6 MG TABLET PO SCH (09:00)
[2020-05-11] MEDS: METOPROLOL TARTRATE 25 MG TABLET PO SCH ×2 (09:02→21:04)
[2020-05-11 10:41] LABS: PATHOLOGIST SLIDE COMMENTS SEE SEPARATE REPORT
--- NOTE | 2020-05-11 10:41 | XRAY Report ---
PROCEDURE: Chest 1 View X-Ray INDICATIONS: Follow up infiltrates. TECHNIQUE: One view of the chest was acquired. COMPARISON: 05/09/2020 FINDINGS: Surgical changes and devices: None. Lungs and pleura: No pneumothorax. Small left greater the right bilateral pleural effusions. Mild pa tchy bilateral perihilar and basilar opacities, which are slightly decreased. Mediastinum: Mediastinal contours appear normal. Heart size is normal. Bones and chest wall: No suspicious bony lesions. Overlying soft tissues appear unremarkable. IMPRESSION: 1. Slight decrease in bilateral pneumonia. Follow-up PA and lateral chest x-rays or chest CT is recom mended to ensure resolution, and to exclude underlying neoplasm. 2. Small left greater than right pleural effusions. Reviewed by: Bryn Broussard MD on 05/11/2020 10:40 AM [facility] Approved by: Bryn Broussard MD on 05/11/2020 10:40 AM [facility] Station ID: [id number]
--- NOTE | 2020-05-11 10:53 | PROVIDER PROGRESS NOTE ---
Subjective - Prog Note Date Prog Note Date: 05/11/20 - Subjective Subjective: She denies feeling short of breath. Still has a little cough. She was happy to see her family yesterday. She believes she is in [place] right now and does not recognize she is at the hospital. Denies pain. Current Medications - Current Medications Current Medications: Active Medications Acetaminophen (Acetaminophen 325 Mg Tablet) 650 mg PO Q4HR PRN PRN Reason: Pain 1 to 4 Last Admin: 05/11/20 09:00 Dose: 650 mg Documented by: Piperacillin Sod/Tazobactam (Sod 4.5 gm/ Sodium Chloride) 100 mls @ 25 mls/hr IV Q8H [facility] Last Admin: 05/11/20 08:45 Dose: 25 mls/hr Documented by: Sodium Chloride (Normal Saline 0.9%) 500 mls @ 0 mls/hr IV Q24H PRN PRN Reason: TKO RATE Last Infusion: 05/11/20 09:04 Dose: 0 mls/hr Documented by: Metoprolol Tartrate (Metoprolol Tartrate 25 Mg Tablet) 25 mg PO BID [facility] Last Admin: 05/11/20 09:02 Dose: 25 mg Documented by: Multivitamins/Minerals (Multivitamin W/Minerals Tablet) 1 tab PO DAILYWM [facility] Last Admin: 05/11/20 09:00 Dose: 1 tab Documented by: Ondansetron HCl (Ondansetron Odt 4 Mg Tablet) 4 mg TL Q6HR PRN PRN Reason: Nausea / Vomiting Ondansetron HCl (Ondansetron 4 Mg/2 Ml Vial) 4 mg IVP Q6HR PRN PRN Reason: Nausea / Vomiting Polyethylene Glycol (Polyethylene Glycol 3350 17 Gm Packet) 17 gm PO DAILY [facility] Last Admin: 05/11/20 09:00 Dose: Not Given Documented by: Senna (Senna 8.6 Mg Tablet) 8.6 - 17.2 mg PO DAILY [facility] Last Admin: 05/11/20 09:00 Dose: 8.6 mg Documented by: Sodium Chloride (Sodium Chloride Flush 0.9% 10 Ml Syringe) 10 ml IVP PRN PRN PRN Reason: NEEDED PER PROVIDER ORDERS Last Admin: 05/09/20 12:46 Dose: 10 ml Documented by: Sodium Chloride (Sodium Chloride Flush 0.9% 10 Ml Syringe) 10 ml IVP 0100,0900,1700 [facility] Last Admin: 05/11/20 09:02 Dose: Not Given Documented by: No Known Home Medications 05/07/20 Objective - Vital Signs/Intake & Output Reviewed Vital Signs: Yes Vital Signs: Vital Signs x48h Temp Pulse Pulse Resp BP BP BP 05/11/20 09:02 139/79 H 05/11/20 08:01 36.3 C L 57 L 20 153/98 H 05/11/20 05:53 36.3 C L 62 20 168/94 H Pulse Ox 05/11/20 09:02 05/11/20 08:01 92 05/11/20 05:53 92 Intake & Output: Intake & Output 05/08/20 05/09/20 05/10/20 05/11/20 23:59 23:59 23:59 23:59 Intake Total 1676 1748 1199 481.666 Output Total 500 2025 2600 1350 Balance 1176 -226 -1401 -868.334 - Objective General Appearance: positive: No acute distress, Alert Eyes Bilateral: positive: Conjunctivae nml, Other (Right periorbital ecchymosis.) ENT: positive: Other (Still significant ecchymosis over the right side of her face predominately lower half. Nasal cannula in place.) Neck: positive: Nml inspection Respiratory: positive: No respiratory distress, Rhonchi. negative: Wheezes, Rales Cardiovascular: positive: Regular rate & rhythm, No murmur. negative: Tachycardia Abdomen: positive: Non-tender, No distention. negative: Tenderness Skin: positive: Warm, Dry Extremities: positive: Other (Dressing is in place over the bilateral lower extremities. She has +1 pitting edema in both of her feet.) Neurologic/Psychiatric: positive: Disoriented to place, Disoriented to time, Other (Moving all four extremities.). negative: Disoriented to person - Lab Results Fish Bones: 05/11/20 08:16 05/11/20 08:16 Other Labs: Lab Results x24hrs 05/11/20 05/11/20 05/07/20 Range/Units 08:16 08:16 04:39 Specimen Type BLOOD WBC 8.6 (4.8-10.8) x10^3/uL RBC 4.03 L (4.20-5.40) 10^6/uL Hgb 11.6 L (12.0-16.0) g/dL Hct 35.0 L (37.0-47.0) % MCV 86.8 (81.0-99.0) fL MCH 28.8 (27.0-31.0) pg MCHC 33.1 (32.0-36.0) g/dL RDW 16.1 H (12.0-15.0) % Plt Count 138 (130-450) 10^3/uL MPV 11.7 H (7.9-10.8) fL Neut # (Auto) 6.8 H (1.5-6.6) 10^3/uL Lymph # (Auto) 0.8 L (1.5-3.5) 10^3/uL [place] # (Auto) 0.9 (0.0-1.0) 10^3/uL Eos # (Auto) 0.0 (0.0-0.7) 10^3/uL Baso # (Auto) 0.0 (0.0-0.1) 10^3/uL Absolute Nucleated RBC 0.00 x10^3/uL Nucleated RBC % 0.0 /100WBC Pathologist Review SEE SEPARATE REPORT Sodium 136 (135-145) mmol/L Potassium 2.9 L (3.5-5.0) mmol/L Chloride 103 (101-111) mmol/L Carbon Dioxide 24 (21-32) mmol/L Anion Gap 9.0 (6-13) BUN 29 H (6-20) mg/dL Creatinine 0.6 (0.4-1.0) mg/dL Estimated GFR (MDRD) 96 (>89) Glucose 125 H (70-100) mg/dL Calcium 8.3 L (8.5-10.3) mg/dL ABX Reporting Has patient been on IV antibiotics over the past 48 hours?: Yes Assessment/Plan - Problem List (1) Hospital-acquired pneumonia Impression: She remains hypoxic but feels less short of breath today. She still remains on 2 L of oxygen she is only 90% on room air. A repeat x-ray was obtained today which showed improvement in the bilateral infiltrates. We will keep her on Zosyn IV with today being day 3 for hospital-acquired pneumonia. We will continue supplemental oxygen. (2) Altered mental status Impression: She remains disoriented but suspect this may be due to underlying dementia as well as her ongoing infection. She is not as agitated and is no longer having hallucinations. She was able to spend time with her family yesterday. We will continue to treat her underlying infection. She would likely not be a safe discharge home given her underlying dementia and we are working with social work in the family as she will likely need assisted living. Qualifiers: Altered mental status type: somnolence Qualified Code(s): R40.0 - Somnolen ce (3) Thrombocytopenia Impression: This has now resolved. 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 She completed 4 days of Decadron. Will recommend repeat CBC in a few weeks and out patient follow-up with her primary care provider. (4) Open wound of both lower extremities Impression: Wound culture is growing Pseudomonas. This is sensitive to Zosyn. We will continue her on antibiotics and ask wound care to evaluate for debridement. Qualifiers: Encounter type: subsequent encounter Qualified Code(s): S81.801D - Unspecified open wound, right lower leg, subsequent encounter; S81.802D - Unspecified open wound, left lower leg, subsequent encounter (5) Hypertension Impression: Her blood pressure is relatively stable systolic in the 130s on metoprolol. We will continue the current dose. Qualifiers: Hypertension type: essential hypertension Qualified Code(s): I10 - Essential (primary) hypertension (6) Atrial fibrillation, new onset Impression: She remains in a sinus rhythm at this time. We will continue metoprolol for rate control. No anticoagulation given her history of multiple falls and significant bruising. (7) Anemia Impression: Hemoglobin remains stable and is improving. Her iron studies were suggestive of anemia of chronic disease. Her stool was negative for occult blood. Continue to monitor. (8) Fracture of rib Impression: We will continue with Tylenol as needed and spirometry use. Qualifiers: Encounter type: initial encounter Rib fracture type: single rib Fracture type: closed Laterality: left Qualified Code(s): S22.32XA - Fracture of one rib, left side, initial encounter for closed fracture (9) Cognitive deficits Impression: She does have baseline cognitive deficits and I suspect that she may be close to her baseline. We are treating her for pneumonia which may be a contributing factor as well to her increased confusion. She will need assisted living facility on discharge. (10) At risk for accident in home Impression: Home is not safe discharge plan and family is agreeable to assisted living. We will continue to work with social work and physical therapy regarding disposition. (11) Hypothermia Impression: This has resolved. The etiology was not clear. Her TSH was normal and although her morning cortisol was decreased, this was skewed as she was on Decadron when this was checked.
[2020-05-11] MEDS: POTASSIUM CHLOR 10 MEQ/100 ML 10 MEQ/100 ML BAG IV SCH ×4 (11:49→15:25)
[2020-05-11] MEDS ORDERED: SODIUM CHLORIDE 0.9% 500 ML IV ONE (11:57)
[2020-05-12] MEDS: PIPERACILLIN/TAZOBACTAM 4.5 GM in SODIUM CHLORIDE 0.9% MINIBAG 100 ML IV SCH ×3 (00:43→14:57)
[2020-05-12] MEDS: SODIUM CHLORIDE FLUSH 0.9% 10 ML SYRINGE IVP SCH ×3 (00:46→16:19)
[2020-05-12 06:00] LABS: BASOPHILS % (AUTO) 0.1 %; EOSINOPHILS % (AUTO) 0.2 %; HCT - HEMATOCRIT 35.4 % (37.0-47.0); HGB - HEMOGLOBIN 11.3 g/dL (12.0-16.0); LYMPHOCYTES # (AUTO) 1.1 10^3/uL (1.5-3.5); MEAN CORPUSCULAR HEMOGLOBIN 28.1 pg (27.0-31.0); MEAN CORPUSCULAR HGB CONC 31.9 g/dL (32.0-36.0); MEAN CORPUSCULAR VOLUME 88.1 fL (81.0-99.0); MEAN PLATELET VOLUME 11.7 fL (7.9-10.8); MONOCYTES # (AUTO) 1.1 10^3/uL (0.0-1.0); MONOCYTES % (AUTO) 12.9 %; NEUTROPHILS % (AUTO) 72.5 %; PLT - PLATELET COUNT 144 10^3/uL (130-450); RED BLOOD COUNT 4.02 10^6/uL (4.20-5.40); RED CELL DISTRIBUTION WIDTH 16.2 % (12.0-15.0); WHITE BLOOD COUNT 8.2 x10^3/uL (4.8-10.8)
[2020-05-12 06:06] LABS: CALCIUM 8.1 mg/dL (8.5-10.3); CREATININE 0.6 mg/dL (0.4-1.0); POTASSIUM 3.1 mmol/L (3.5-5.0)
[2020-05-12] MEDS: METOPROLOL TARTRATE 25 MG TABLET PO SCH ×2 (08:54→20:30)
[2020-05-12] MEDS: MULTIVITAMIN W/MINERALS TABLET PO SCH (08:54)
[2020-05-12] MEDS: ACETAMINOPHEN 325 MG TABLET PO PRN ×2 (08:55→20:31)
[2020-05-12] MEDS: SENNA 8.6 MG TABLET PO SCH (08:55)
[2020-05-12] MEDS: polyethylene glycoL 3350 17 GM PACKET PO SCH (08:56)
[2020-05-12] MEDS: POTASSIUM CHLOR 10 MEQ/100 ML 10 MEQ/100 ML BAG IV SCH ×4 (10:05→13:48)
[2020-05-12] MEDS: SODIUM CHLORIDE 0.9% 500 ML IV PRN (13:04)
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
[2020-05-13] MEDS: PIPERACILLIN/TAZOBACTAM 4.5 GM in SODIUM CHLORIDE 0.9% MINIBAG 100 ML IV SCH ×4 (00:37→23:17)
[2020-05-13] MEDS: SODIUM CHLORIDE FLUSH 0.9% 10 ML SYRINGE IVP SCH ×3 (00:38→16:05)
[2020-05-13 04:54] LABS: BASOPHILS % (AUTO) 0.1 %; EOSINOPHILS # (AUTO) 0.1 10^3/uL (0.0-0.7); HCT - HEMATOCRIT 35.6 % (37.0-47.0); HGB - HEMOGLOBIN 11.3 g/dL (12.0-16.0); LYMPHOCYTES # (AUTO) 0.9 10^3/uL (1.5-3.5); LYMPHOCYTES % (AUTO) 12.9 %; MEAN CORPUSCULAR HEMOGLOBIN 27.8 pg (27.0-31.0); MEAN CORPUSCULAR HGB CONC 31.7 g/dL (32.0-36.0); MEAN CORPUSCULAR VOLUME 87.7 fL (81.0-99.0); MEAN PLATELET VOLUME 11.5 fL (7.9-10.8); MONOCYTES % (AUTO) 13.3 %; NEUTROPHILS # (AUTO) 5.2 10^3/uL (1.5-6.6); NEUTROPHILS % (AUTO) 71.1 %; PLT - PLATELET COUNT 152 10^3/uL (130-450); RED BLOOD COUNT 4.06 10^6/uL (4.20-5.40); RED CELL DISTRIBUTION WIDTH 16.1 % (12.0-15.0); WHITE BLOOD COUNT 7.3 x10^3/uL (4.8-10.8)
[2020-05-13 05:04] LABS: CALCIUM 7.8 mg/dL (8.5-10.3); CREATININE 0.7 mg/dL (0.4-1.0); POTASSIUM 3.2 mmol/L (3.5-5.0)
[2020-05-13] MEDS: MULTIVITAMIN W/MINERALS TABLET PO SCH (08:32)
[2020-05-13] MEDS: METOPROLOL TARTRATE 25 MG TABLET PO SCH ×2 (08:50→20:04)
[2020-05-13] MEDS: polyethylene glycoL 3350 17 GM PACKET PO SCH (08:51)
[2020-05-13] MEDS: POTASSIUM CHLOR 10 MEQ/100 ML 10 MEQ/100 ML BAG IV SCH ×4 (08:54→13:30)
[2020-05-13] MEDS: SENNA 8.6 MG TABLET PO SCH (09:11)
[2020-05-13] MEDS: SODIUM CHLORIDE 0.9% 500 ML IV PRN (12:15)
--- NOTE | 2020-05-13 12:39 | PROVIDER PROGRESS NOTE ---
Assessment/Plan - Problem List (1) Hospital-acquired pneumonia Assessment/Plan: She is not hypoxic and is not short of breath. The last CXR showed improvement in bilateral infiltrates. We will keep her on Zosyn IV with today being day 5 for hospital-acquired pneumonia. Planning [facility] tomorrow (2) Dementia Impression: She remains disoriented but suspect this may be due to underlying dementia as well as her ongoing infection. She is not as agitated and is no longer having hallucinations. She was able to spend time with her family when visited. We will continue to treat her underlying infection. She would not be a safe discharge to home given her underlying dementia and we are working with social work and the family as she will need assisted living. [facility] advised she go to SNF first. She has been accepted to SNF for rehab at [facility] tomorrow. (3) Open wound of both lower extremities Impression: Wound culture is growing Pseudomonas. This is sensitive to Zosyn. We will continue her on antibiotics. I asked wound care to evaluate for debridement (if room in the Wound clinic outpt schedule) or Gen Surgery consult was requested for recommendations today on management (debridement?, bandaging?). (4) Hypertension Impression: Her blood pressure is relatively stable systolic in the 130s on metoprolol. We will continue the current dose. (5) Atrial fibrillation, new onset Impression: She converted and remains in a sinus rhythm at this time. We will continue metoprolol for rate control. No anticoagulation given her h istory of multiple falls and significant bruising. (6) Anemia Impression: Hemoglobin remains stable and is improving. Her iron studies were suggestive of anemia of chronic disease. Her stool was negative for occult blood. Continue to monitor. (7) Fracture of rib Impression: We will continue with Tylenol as needed and Incentive spirometry was ordered. Qualifiers: Encounter type: subsequent encounter Rib fracture type: single rib Fracture type: closed Laterality: left Qualified Code(s): S22.32XA - Fracture of one rib, left side, initial encounter for closed fracture (8) At risk for accident in home Impression: Home is not safe discharge plan and family is agreeable to Assisted Living. (9) Hypothermia Impression: This has resolved. The etiology was not clear. Perhaps she was on the floor a long time. Her TSH was normal and although her morning cortisol was decreased, this was skewed as she was on Decadron when this was checked. (10) Thrombocytopenia Impression: This has resolved. 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 She completed 4 days of Decadron here. Will recommend repeat CBC in a few weeks and outpatient follow-up with her primary care provider. - Current Meds Current Meds: Current Medications Generic Name Dose Route Start Last Admin Trade Name Freq PRN Reason Stop Dose Admin Acetaminophen 650 mg 05/06/20 22:40 05/12/20 20:31 Acetaminophen 325 Mg Tablet PO 650 mg Q4HR PRN Administration Pain 1 to 4 Piperacillin Sod/Tazobactam 100 mls @ 25 mls/hr 05/09/20 16:00 05/13/20 08:33 Sod 4.5 gm/ Sodium Chloride IV 25 mls/hr Q8H MONICA Administration Sodium Chloride 500 mls @ 0 mls/hr 05/09/20 16:06 05/13/20 12:15 Normal Saline 0.9% IV 20 mls/hr Q24H PRN Administration TKO RATE TKO Potassium Chloride 10 meq in 100 mls @ 100 mls/hr 05/13/20 09:00 05/13/20 12:06 Potassium Chloride IV 05/13/20 12:59 75 mls/hr Q1H MONICA Administration Metoprolol Tartrate 25 mg 05/09/20 21:00 05/13/20 08:50 Metoprolol Tartrate 25 Mg Tablet PO 25 mg BID MONICA Administration Multivitamins/Minerals 1 tab 05/08/20 16:00 05/13/20 08:32 Multivitamin W/Minerals Tablet PO 1 tab DAILYWM MONICA Administration Polyethylene Glycol 17 gm 05/09/20 09:00 05/13/20 08:51 Polyethylene Glycol 3350 17 Gm Packet PO 17 gm DAILY MONICA Administration Senna 8.6 - 17.2 mg 05/09/20 10:00 05/13/20 09:11 Senna 8.6 Mg Tablet PO 8.6 mg DAILY MONICA Administration Sodium Chloride 10 ml 05/06/20 22:40 05/09/20 12:46 Sodium Chloride Flush 0.9% 10 Ml Syringe IVP 10 ml PRN PRN Administration NEEDED PER PROVIDER ORDERS Sodium Chloride 10 ml 05/07/20 01:00 05/13/20 09:03 Sodium Chloride Flush 0.9% 10 Ml Syringe IVP Not Given 0100,0900,1700 MONICA - Lab Result Fish Bone Diagrams: 05/13/20 04:31 05/13/20 04:31 - Additional Planning My Orders: My Active Orders 05/13/20 Consult [General Surgery Consult] [CONS] Routine RESPIRATORY PCR PANEL Routine 05/13/20 09:00 Potassium Chlor 10 Meq/100 ml [Potassium Chloride] 10 meq in 100 ml IV Q1H Subjective - Subjective Patient Reports: No Complaints Objective Vital Signs: Vital Signs - 24 hr 05/12/20 05/12/20 05/12/20 13:00 15:42 18:43 Temperature 36.3 C L 36.4 C L Heart Rate [ 75 61 Brachial] Heart Rate [ 107 H Monitoring electrodes] Respiratory 18 20 Rate Blood Pressure Blood Pressure 181/84 H [Left Brachial artery] Blood Pressure [Right Brachial artery] Blood Pressure 127/106 H [Right Radial artery] O2 Saturation 93 87 L 95 05/12/20 05/12/20 05/13/20 20:16 20:30 00:36 Temperature 37.1 C 36.4 C L Heart Rate [ 69 66 Brachial] Heart Rate [ Monitoring electrodes] Respiratory 16 15 Rate Blood Pressure 153/91 H Blood Pressure [Left Brachial artery] Blood Pressure 153/91 H [Right Brachial artery] Blood Pressure 167/71 H [Right Radial artery] O2 Saturation 98 99 05/13/20 05/13/20 05/13/20 05:00 07:43 08:50 Temperature 37.6 C 37.3 C Heart Rate [ 62 64 Brachial] Heart Rate [ Monitoring electrodes] Respiratory 16 17 Rate Blood Pressure 132/72 H Blood Pressure [Left Brachial artery] Blood Pressure 168/79 H [Right Brachial artery] Blood Pressure 152/81 H [Right Radial artery] O2 Saturation 95 98 05/13/20 05/13/20 09:02 11:26 Temperature 36.9 C Heart Rate [ 73 Brachial] Heart Rate [ Monitoring electrodes] Respiratory 18 Rate Blood Pressure Blood Pressure [Left Brachial artery] Blood Pressure 153/76 H [Right Brachial artery] Blood Pressure [Right Radial artery] O2 Saturation 91 L 94 Oxygen O2 Source Room air I&O (Last 24 Hrs): Intake and Output Totals x24h 05/11/20 05/12/20 05/13/20 23:59 23:59 23:59 Intake Total 6846.353 6478.333 736.667 Output Total 1434 0004 1375 Balance -1187.667 -2121.667 -638.333 General: Alert HEENT: Other (Marked bruising R side) Neck: Other (Marke kyphosis) Neuro: Alert, Disoriented, Non Focal Cardiovascular: No murmurs Respiratory: No respiratory distress, Breath sounds nml, Other (Thin chest) Abdomen: Soft Extremities: No edema, Other (Legs are bandaged and feet are in socks.) - Results Results: Laboratory Results Specimen Type BLOOD 05/07/20 04:39 WBC 7.3 x10^3/uL (4.8-10.8) 05/13/20 04:31 RBC 4.06 10^6/uL (4.20-5.40) L 05/13/20 04:31 Hgb 11.3 g/dL (12.0-16.0) L 05/13/20 04:31 Hct 35.6 % (37.0-47.0) L 05/13/20 04:31 MCV 87.7 fL (81.0-99.0) 05/13/20 04:31 MCH 27.8 pg (27.0-31.0) 05/13/20 04:31 MCHC 31.7 g/dL (32.0-36.0) L 05/13/20 04:31 RDW 16.1 % (12.0-15.0) H 05/13/20 04:31 Plt Count 152 10^3/uL (130-450) 05/13/20 04:31 MPV 11.5 fL (7.9-10.8) H 05/13/20 04:31 Neut # (Auto) 5.2 10^3/uL (1.5-6.6) 05/13/20 04:31 Lymph # (Auto) 0.9 10^3/uL (1.5-3.5) L 05/13/20 04:31 [place] # (Auto) 1.0 10^3/uL (0.0-1.0) 05/13/20 04:31 Eos # (Auto) 0.1 10^3/uL (0.0-0.7) 05/13/20 04:31 Baso # (Auto) 0.0 10^3/uL (0.0-0.1) 05/13/20 04:31 Absolute Nucleated RBC 0.00 x10^3/uL 05/13/20 04:31 Nucleated RBC % 0.0 /100WBC 05/13/20 04:31 Pathologist Review SEE SEPARATE REPORT 05/07/20 04:39 WBC Morphology NORMAL APPEARANCE (NORMAL) 05/06/20 21:11 Platelet Estimate DECREASED (<130,000) (NORMAL) 05/07/20 04:39 Platelet Morphology 1+ LARGE PLATELETS (NORMAL) 05/07/20 04:39 RBC Morph Micro Appear 1+ ANISOCYTOSIS (NORMAL) 05/06/20 21:11 ESR 24 mm/Hr (0-30) 05/06/20 21:11 PT 11.4 secs (9.9-12.6) 05/06/20 21:11 INR 1.0 (0.8-1.2) 05/06/20 21:11 APTT 38.6 secs (24.9-33.3) H 05/06/20 21:11 Sodium 138 mmol/L (135-145) 05/13/20 04:31 Potassium 3.2 mmol/L (3.5-5.0) L 05/13/20 04:31 Chloride 105 mmol/L (101-111) 05/13/20 04:31 Carbon Dioxide 23 mmol/L (21-32) 05/13/20 04:31 Anion Gap 10.0 (6-13) 05/13/20 04:31 BUN 23 mg/dL (6-20) H 05/13/20 04:31 Creatinine 0.7 mg/dL (0.4-1.0) 05/13/20 04:31 Estimated GFR (MDRD) 80 (>89) L 05/13/20 04:31 Glucose 77 mg/dL (70-100) 05/13/20 04:31 Estimat Average Glucose 100 mg/dL (70-100) 05/07/20 04:39 Hemoglobin A1c % 5.1 % (4.27-6.07) 05/07/20 04:39 Lactic Acid 0.8 mmol/L (0.5-2.2) 05/06/20 21:11 Calcium 7.8 mg/dL (8.5-10.3) L 05/13/20 04:31 Phosphorus 3.2 mg/dL (2.5-4.6) 05/09/20 05:25 Magnesium 2.2 mg/dL (1.7-2.8) 05/09/20 05:25 Iron 33 ug/dL (28-170) 05/08/20 08:06 TIBC 280 ug/dL (250-450) 05/08/20 08:06 % Saturation 12 % (20-50) L 05/08/20 08:06 Transferrin 200 mg/dL (192-382) 05/08/20 08:06 Ferritin 152.5 ng/mL (11.0-306.8) 05/08/20 08:06 Total Bilirubin 0.6 mg/dL (0.2-1.0) 05/06/20 21:11 AST 33 IU/L (10-42) 05/06/20 21:11 ALT 48 IU/L (10-60) 05/06/20 21:11 Alkaline Phosphatase 114 IU/L (42-121) 05/06/20 21:11 Ammonia 27.4 umol/L (7-35) 05/10/20 05:01 Total Creatine Kinase 49 IU/L (22-269) 05/06/20 21:11 Troponin I High Sens 5.4 ng/L (2.3-14.8) 05/07/20 04:39 C-Reactive Protein 2.4 mg/dL (0-1.0) H 05/06/20 21:11 Total Protein 6.2 g/dL (6.7-8.2) L 05/06/20 21:11 Albumin 2.5 g/dL (3.2-5.5) L 05/08/20 04:22 Globulin 3.1 g/dL (2.1-4.2) 05/06/20 21:11 Albumin/Globulin Ratio 1.0 (1.0-2.2) 05/06/20 21:11 Lipase 28 U/L (22-51) 05/06/20 21:11 Vitamin B12 991 pg/mL (180-914) H 05/07/20 04:39 Folate 20.40 ng/mL (5.90 - >24.8) 05/07/20 04:39 TSH 1.37 uIU/mL (0.34-5.60) 05/06/20 21:11 Cortisol AM Sample 2.1 ug/dL 05/08/20 08:06 Urine Color YELLOW 05/06/20 22:10 Urine Clarity CLEAR (CLEAR) 05/06/20 22:10 Urine pH 6.0 PH (5.0-7.5) 05/06/20 22:10 Ur Specific [place] >=1.030 (1.002-1.030) H 05/06/20 22:10 Urine Protein NEGATIVE mg/dL (NEGATIVE) 05/06/20 22:10 Urine Glucose (UA) NEGATIVE mg/dL (NEGATIVE) 05/06/20 22:10 Urine Ketones 15 mg/dL (NEGATIVE) H 05/06/20 22:10 Urine Occult Blood NEGATIVE (NEGATIVE) 05/06/20 22:10 Urine Nitrite NEGATIVE (NEGATIVE) 05/06/20 22:10 Urine Bilirubin NEGATIVE (NEGATIVE) 05/06/20 22:10 Urine Urobilinogen 0.2 (NORMAL) E.U./dL (NORMAL) 05/06/20 22:10 Ur Leukocyte Esterase NEGATIVE (NEGATIVE) 05/06/20 22:10 Ur Microscopic Review NOT INDICATED 05/06/20 22:10 Urine Culture Comments NOT INDICATED 05/06/20 22:10 Nasal Adenovirus (PCR) NOT DETECTED 05/09/20 09:26 Nasal B. parapertussis DNA (PCR) NOT DETECTED 05/09/20 09:26 Nasal Coronavir 229E PCR NOT DETECTED 05/09/20 09:26 Nasal Coronavir HKU1 PCR NOT DETECTED 05/09/20 09:26 Nasal Coronavir NL63 PCR NOT DETECTED 05/09/20 09:26 Nasal Coronavir OC43 PCR NOT DETECTED 05/09/20 09:26 Nasal Enterovir/Rhinovir PCR NOT DETECTED 05/09/20 09:26 Nasal Influenza B PCR NOT DETECTED 05/09/20 09:26 Nasal Influenza A PCR NOT DETECTED 05/09/20 09:26 Nasal Parainfluen 1 PCR NOT DETECTED 05/09/20 09:26 Nasal Parainfluen 2 PCR NOT DETECTED 05/09/20 09:26 Nasal Parainfluen 3 PCR NOT DETECTED 05/09/20 09:26 Nasal Parainfluen 4 PCR NOT DETECTED 05/09/20 09:26 Nasal RSV (PCR) NOT DETECTED 05/09/20 09:26 Nasal Screen MRSA (PCR) NEGATIVE (NEGATIVE) 05/09/20 12:32 Nasal B.pertussis DNA PCR NOT DETECTED 05/09/20 09:26 Nasal C.pneumoniae (PCR) NOT DETECTED 05/09/20 09:26 Mohinder Human Metapneumo PCR NOT DETECTED 05/09/20 09:26 Nasal M.pneumoniae (PCR) NOT DETECTED 05/09/20 09:26 Nasal SARS-CoV-2 (PCR) NOT DETECTED 05/09/20 09:26 Stool H. pylori Ag NEGATIVE (Negative) 05/10/20 00:00 Salicylates < 6.0 mg/dL 05/06/20 21:11 Urine Opiates Screen NEGATIVE (NEGATIVE) 05/06/20 22:10 Ur Oxycodone Screen NEGATIVE (NEGATIVE) 05/06/20 22:10 Urine Methadone Screen NEGATIVE (NEGATIVE) 05/06/20 22:10 Ur Propoxyphene Screen NEGATIVE (NEGATIVE) 05/06/20 22:10 Acetaminophen < 10 ug/mL (10-30) L 05/06/20 21:11 Ur Barbiturates Screen NEGATIVE (NEGATIVE) 05/06/20 22:10 Ur Tricyclics Screen NEGATIVE (NEGATIVE) 05/06/20 22:10 Ur Phencyclidine Scrn NEGATIVE (NEGATIVE) 05/06/20 22:10 Ur Amphetamine Screen NEGATIVE (NEGATIVE) 05/06/20 22:10 U Methamphetamines Scrn NEGATIVE (NEGATIVE) 05/06/20 22:10 U Benzodiazepines Scrn NEGATIVE (NEGATIVE) 05/06/20 22:10 Urine Cocaine Screen NEGATIVE (NEGATIVE) 05/06/20 22:10 U Cannabinoids Screen NEGATIVE (NEGATIVE) 05/06/20 22:10 Ethyl Alcohol < 5.0 mg/dL 05/06/20 21:11 Hepatitis C Antibody NON-REACTIVE (NON-REACTIVE) 05/07/20 04:39 Hep C Ab Signal/Cutoff 0.00 (<1.00) 05/07/20 04:39 HIV 1&2 Ag/Ab, 4th Gen NON-REACTIVE (NON-REACTIVE) 05/07/20 04:39
[2020-05-13 14:31] LABS: B. PARAPERTUSSIS- RESP PCR PAN NOT DETECTED; B. PERTUSSIS- RESP PCR PANEL NOT DETECTED; C. PNEUMONIAE- RESP PCR PANEL NOT DETECTED; CORONAVIRUS 229E-RESP PCR NOT DETECTED; CORONAVIRUS HKU1-RESP PCR NOT DETECTED; CORONAVIRUS NL63-RESP PCR NOT DETECTED; CORONAVIRUS OC43-RESP PCR NOT DETECTED; HUMAN METAPNEUMOVIRUS NOT DETECTED; INFLUENZA A- RESP PCR PANEL NOT DETECTED; INFLUENZA B - RESP PCR PANEL NOT DETECTED; M. PNEUMONIAE- RESP PCR PANEL NOT DETECTED; PARAINFLUENZA VIRUS 1 NOT DETECTED; PARAINFLUENZA VIRUS 2 NOT DETECTED; PARAINFLUENZA VIRUS 3 NOT DETECTED; PARAINFLUENZA VIRUS 4 NOT DETECTED; RHINOVIRUS/ENTEROVIRUS NOT DETECTED; RSV- RESP PCR PANEL NOT DETECTED; SARS-CoV-2 -RESP PCR PANEL NOT DETECTED
[2020-05-14] MEDS: SODIUM CHLORIDE FLUSH 0.9% 10 ML SYRINGE IVP SCH ×2 (00:41→09:33)
[2020-05-14 04:45] LABS: BASOPHILS % (AUTO) 0.2 %; EOSINOPHILS # (AUTO) 0.2 10^3/uL (0.0-0.7); EOSINOPHILS % (AUTO) 1.9 %; HCT - HEMATOCRIT 35.9 % (37.0-47.0); HGB - HEMOGLOBIN 11.6 g/dL (12.0-16.0); LYMPHOCYTES # (AUTO) 1.2 10^3/uL (1.5-3.5); LYMPHOCYTES % (AUTO) 12.8 %; MEAN CORPUSCULAR HEMOGLOBIN 28.4 pg (27.0-31.0); MEAN CORPUSCULAR HGB CONC 32.3 g/dL (32.0-36.0); MEAN PLATELET VOLUME 11.1 fL (7.9-10.8); MONOCYTES % (AUTO) 10.7 %; NEUTROPHILS % (AUTO) 73.1 %; PLT - PLATELET COUNT 180 10^3/uL (130-450); RED BLOOD COUNT 4.08 10^6/uL (4.20-5.40); WHITE BLOOD COUNT 9.5 x10^3/uL (4.8-10.8)
[2020-05-14 04:51] LABS: CALCIUM 7.8 mg/dL (8.5-10.3); CREATININE 0.7 mg/dL (0.4-1.0); POTASSIUM 3.2 mmol/L (3.5-5.0)
[2020-05-14] MEDS ORDERED: POTASSIUM CHLORIDE 20 MEQ TABLET PO ONE (07:28)
[2020-05-14] MEDS ORDERED: POTASSIUM CHLORIDE 20 MEQ TABLET PO SCH (09:27)
[2020-05-14] MEDS: MULTIVITAMIN W/MINERALS TABLET PO SCH (09:28)
[2020-05-14] MEDS: METOPROLOL TARTRATE 25 MG TABLET PO SCH (09:28)
[2020-05-14] MEDS ORDERED: POTASSIUM CHLORIDE 20 MEQ/15 ML UDC PO SCH (09:28)
[2020-05-14] MEDS: PIPERACILLIN/TAZOBACTAM 4.5 GM in SODIUM CHLORIDE 0.9% MINIBAG 100 ML IV SCH (09:32)
[2020-05-14] MEDS: polyethylene glycoL 3350 17 GM PACKET PO SCH (09:32)
[2020-05-14] MEDS: SENNA 8.6 MG TABLET PO SCH (09:32)
[2020-05-14] MEDS ORDERED: POTASSIUM CHLOR 10 MEQ/100 ML 10 MEQ/100 ML BAG IV SCH (10:00)
--- NOTE | 2020-05-14 10:52 | CONSULTATION NOTE ---
Referring Provider Name of Referring Provider:: Dr. Lawrence Consult Date: 05/13/20 Chief Complaint - Chief Complaint Chief Complaint: B/L LE Foreleg Ulceration History of Present Illness - History Obtained From Records Reviewed: Hospitalist notes and electronic medical record History obtained from: Hospitalist notes and electronic medical record Exam Limitations: Severe dementia - History of Present Illness HPI Comment/Other: 79-year-old female with admission of altered mental status, in the setting of Alzheimer's dementia. Surgical consult sought for evaluation of the patient's bilateral lower extremity for leg wounds. 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 Mom when the patient was very young. The patient was 19 and cannot remember what mom of. 2 sisters and 1 brother. Both her sisters are alive and healthy without hypertension, cancer, heart attack stroke. One brother of some type of cancer. 3 children. Son and daughter are both healthy without any med ical illnesses. Third child, a son, at a young age of a motor vehicle accident. Living arrangement: At home Living Situation: With spouse/s.o. Social History Notes: Pt has been to her for over 60 years. They are very close and do most things together. is also very fit and healthy. Pt and have lived on [facility] since the mid . Pt and purchased a place in a [place] 50[place] community in [place] and are interested in moving there. Daughter Shelby, in the past admission, reported that she wants her parents to move to be closer to her. Pt also has an adult son Gilmar, who lives in [place]. Son wants mom and dad to move to [facility] to at least be on this side of the [facility]. 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 But never smoked more than 1 or 2 cigarettes a day. She also has no history of alcohol abuse or recreational substance abuse. 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 They currently live Between the 2 of their homes here on [facility]. They also have a home in [facility] in the community for elderly people. - Substance History Use: Uses substance without health or social issues: NONE Abuse: Recurrent use of substance despite neg consequences: NONE Dependence: Experiences withdrawal or developed tolerances: NONE - POLST Patient has POLST: No POLST Status: Full Code Meds/Allgy - Home Medications Home Medications: Ambulatory Orders Medication Instructions Recorded Confirmed No Known Home Medications 05/07/20 05/07/20 - Allergies Allergies/Adverse Reactions: Allergies Allergy/AdvReac Type Severity Reaction Status Date / Time No Known Drug Allergies Allergy Verified 05/06/20 22:57 Review of Systems - Constitutional Constitutional: reports: Other (Unable to assess secondary to the patient's profound dementia) Exam - Vital Signs Vital Signs: Vital Signs x48h Temp Pulse Resp BP Pulse Ox 05/14/20 07:41 37.0 C 61 16 155/86 H 93 05/14/20 05:00 37.4 C 61 16 142/73 H 93 - Physical Exam Comments/Other: Focused and limited physical exam: Bilateral foreleg wound dressings intact. Dressings had just been applied. Feet exposed. No palpable dorsal pedal or posterior tibial pulses. Photographs evaluated extensively. No surrounding induration or visible erythema. Signs and evaluation consistent with venous stasis ulceration. Positive capillary refill brisk. Conclusion/Plan - Diagnosis Diagnosis: 1. Venous stasis ulceration, bilateral lower extremity. 2. Altered mental status secondary to encephalopathy. 3. Multiple comorbid states. 4. No significant large vessel vasculopathy B/L LE. 4. Alzheimer dementia - Plan Plan: 1. Would obtain bilateral lower extremity ankle-brachial indices for baseline. Patient has bilateral lower extremity venous duplex Doppler without any concern for large vessel vasculopathy at this time. This can be deferred for outpatient assessment. 2. Given the venous stasis ulceration with superficial disease, would proceed with Unna boot changed weekly. This can be addressed in the outpatient wound clinic. 3. In the interim continue with lower extremity elevation, diuresis as tolerate d, nonadherent dressing with daily changing. 4. No acute surgical/procedural intervention at this time for patient's bilateral foreleg wounds. - Lab Results Lab results reviewed: Yes Fish Bones: 05/14/20 04:31 05/14/20 04:31 - Diagnostic Imaging Results Diagnostic Imaging Results: positive: Final report reviewed Diagnostic Imaging Results Comments: Impression bilateral lower extremity venous duplex Doppler: 1. Monophasic flow with normal flow velocities in the left lower extremity. Findings could be secondary to left lower extremity iliac occlusive disease or left lower extremity distal small vessel disease. Recommend a order iliac Doppler ultrasound for additional evaluation. 2. Monophasic flow with normal flow velocities in the right lower extremity. Finding likely related to lower extremity distal small vessel disease. No AALIYAH performed.
[2020-05-14 11:38] VITALS: BP 146/90
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
--- NOTE | 2020-05-14 13:04 | Discharge Plan ---
"Discharge Plan for SNF / [facility] - Discharge Plan And Transition Orders Problem Reviewed?: Yes Disposition: 03 SNF DC/Xfer Condition: Stable Allergies and Adverse Reactions: Allergies Allergy/AdvReac Type Severity Reaction Status Date / Time No Known Drug Allergies Allergy Verified 05/06/20 22:57 Health Concerns: The patient was admitted with confusion, obtundation, a large ecchymosis of the right face and found to have a pneumonia. She completed a course of IV antibiotics for the pneumonia. She had been on the ground for unknown period of time, but had no rhabdomyolysis or fractures. She had a complication of devloping ITP and responded well to 4 days of IV Decadron with improvement to a normal platelet count. She has wounds on each foot and needs topical care and also an outpatient wound care consultation (AALIYAH and Unna boot were suggested by the General healthcare management consultant). The patient has marked kyphosis but is able to ambulate with a walker and PT recommended SNF. She has dementia and after SNF the family wants her to be be discharged to [facility]. Plan of Treatment: As above. She needs a BMP done in 1 week to check Potassium, and a CBC done in 3 weeks to assure the platelets remain normal. Care Goals: Improvement in symptoms and stabilization are the goals. Assessment: The patient is in agreement, the is in agreement and the son, who has POA, is in agreement with this plan. 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 Notify PCP of admission and forward orders to primary provider for signature. Weight on admission and: Weekly Call PCP immediately if weight increases by: 5 kg Other Notification Orders: Call PCP immediately if patient develops dyspnea, chest pain/tightness or edema. House Bowel Program: Yes Additional Bowel Program Orders: If no BM after 2 days, nurse may give M.O.M. 30ml PO PRN and/or ducolax Supp 1 CA and/or DEANNA 250mg P.O., and/or senna 1-2 tabs PO. On day 3 nurse may give repeat above order until residents constipation is resolved. Annual Influenza Vaccine (between Nov 18 and June 17): Yes Two-step PPD per [facility] [id number] or approved exception documents: Yes Treatments & Other Orders: Topical wound care daily. Outpatient appointment with a Wound Care clinic. Lab Tests or X-ray Orders: CBC in 3 weeks to check platelets. BMP in 1 week to check Potassium. Medication Orders: PLEASE REFER TO THE DISCHARGE MEDICATION LIST. Insulin Orders?: No - Medications New Prescriptions: Potassium Chloride [K-Dur] 20 meq PO 0800 #30 Metoprolol Tartrate [Lopressor] 25 mg PO BID #60 Multivitamin W/Minerals [Theragran M] 1 tab PO DAILYWM #30 - Diet Type: Geriatric Texture: Dysphagia mech Liquids: Thin Supplements: High protein 4 oz supplement every evening May have monthly special meal: Yes - Therapies | Activity Therapy: Evaluation | Treat if indicated: PT, OT Rehabilitation Potential: Maximize functional status Activity: Activity as Tolerated Weight Bearing: Full Weight Assistance Devices: Walker Follow Up: She will need a new PCP after moving in at [facility]."
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
[2020-05-15] MEDS ORDERED: POTASSIUM CHLORIDE 20 MEQ/15 ML UDC PO SCH (08:00)
== END 2020-05-14 14:35 | DRG 70 ==
LOC: EDUNIT# → ED 20:23 → MS2 22:40 → ICU 05-07 11:26 → MS2 05-08 13:27
PROVIDERS: ADMIT Specialist; ATTEND Internal Medicine
DX: G93.41 Metabolic encephalopathy (principal); J18.9 Pneumonia, unspecified organism; D69.6 Thrombocytopenia, unspecified; R91.8 Other nonspecific abnormal finding of lung field; I48.91 Unspecified atrial fibrillation; S22.32XA Fracture of one rib, left side, initial encounter for closed fracture; D69.3 Immune thrombocytopenic purpura; S81.802A Unspecified open wound, left lower leg, initial encounter; S81.801A Unspecified open wound, right lower leg, initial encounter; B96.5 Pseudomonas (aeruginosa) (mallei) (pseudomallei) as the cause of diseases classified elsewhere; S20.219A Contusion of unspecified front wall of thorax, initial encounter; R40.0 Somnolence; I10 Essential (primary) hypertension; I48.0 Paroxysmal atrial fibrillation; I27.20 Pulmonary hypertension, unspecified; D63.8 Anemia in other chronic diseases classified elsewhere; F03.90 Unspecified dementia, unspecified severity, without behavioral disturbance, psychotic disturbance, mood disturbance, and anxiety; W19.XXXA Unspecified fall, initial encounter; Z91.81 History of falling; Y92.009 Unspecified place in unspecified non-institutional (private) residence as the place of occurrence of the external cause; R58 Hemorrhage, not elsewhere classified; S00.81XA Abrasion of other part of head, initial encounter; S00.91XA Abrasion of unspecified part of head, initial encounter; T68.XXXA Hypothermia, initial encounter; M40.209 Unspecified kyphosis, site unspecified; R25.1 Tremor, unspecified; I87.8 Other specified disorders of veins; R82.4 Acetonuria; R22.0 Localized swelling, mass and lump, head; S00.83XA Contusion of other part of head, initial encounter; E86.0 Dehydration; R40.1 Stupor; G30.9 Alzheimer's disease, unspecified; F02.80 Dementia in other diseases classified elsewhere, unspecified severity, without behavioral disturbance, psychotic disturbance, mood disturbance, and anxiety; F09 Unspecified mental disorder due to known physiological condition; Z20.822 Contact with and (suspected) exposure to COVID-19; Z66 Do not resuscitate; R60.0 Localized edema
CPT/HCPCS: 36415; 70450; 70486; 71045; 71260; 71270; 72125; 80048; 80053; 81003; 82040; 82140; 82272; 82533; 82550; 82607; 82728; 82746; 83036; 83540; 83605; 83690; 83735; 84100; 84443; 84466; 84484; 85025; 85610; 85651; 85730; 86140; 86803; 87040; 87070; 87150; 87181; 87205; 87338; 87631; 87640; 93005; 93306; 93925; 96360; 97162; 97166; 97530; 97535; 99285; A9270; G0475; J7120; J8540; Q9967; 0202U; 80306; 80307; 80320; 80329; 81001; 87086; 87389

== ENCOUNTER 2020-05-14 14:33 | Outpatient (CLI) | payer MEDICARE, BC | END 2020-05-14 14:34 | disposition other institution (70) | LOC: EMS 14:33 | DX: M40.202 Unspecified kyphosis, cervical region (principal); R41.0 Disorientation, unspecified; Z74.01 Bed confinement status | CPT/HCPCS: A0425; A0428 ==

== ENCOUNTER 2020-07-18 03:25 | Outpatient (CLI) | payer MEDICARE, BC | END 2020-07-18 03:26 | disposition critical access hospital (66) | LOC: EMS 03:25 | DX: M25.551 Pain in right hip (principal) | CPT/HCPCS: A0425; A0429 ==

== ENCOUNTER 2020-07-18 03:56 | Emergency (ER) | payer MEDICARE, BC ==
--- OUTSIDE RECORDS SUMMARY | 2020-07-18 04:11 | EXTERNAL MEDICAL SUMMARY RPT | Continuity of Care Document ---
:1940 Demographics Phone Unavailable Preferred Language Unknown Marital Status Unknown Christianity Affiliation Unknown Race Unknown Ethnic Group Unknown Author Organization [facility] Address [address] [phone] Phone Social History date description facility [id number]
[2020-07-18 04:55] LABS: BILIRUBIN,URINE NEGATIVE (NEGATIVE); GLUCOSE, URINE (UA) NEGATIVE (NEGATIVE); KETONES,URINE (UA) NEGATIVE (NEGATIVE); LEUKOCYTE ESTERASE, URINE TRACE (NEGATIVE); NITRITE,URINE POSITIVE (NEGATIVE); OCCULT BLOOD,URINE NEGATIVE (NEGATIVE); PROTEIN,URINE NEGATIVE (NEGATIVE); UROBILINOGEN,URINE 0.2 (NORMAL) E.U./dL (NORMAL)
[2020-07-18 04:56] LABS: CLARITY,URINE CLEAR (CLEAR)
[2020-07-18 05:01] LABS: BACTERIA,URINE Moderate /HPF (None Seen); RBC,URINE 0-5 /HPF (0-5); SQUAMOUS EPITHELIAL CELL,UR NONE SEEN (<= Few)
[2020-07-18] MEDS ORDERED: BACITRACIN ZINC OINT 1 PACKET TOP STA (05:15)
--- NOTE | 2020-07-18 06:27 | ED Physician Documentation ---
History of Present Illness - Stated complaint Stated Complaint: GLF, RIGHT HIP AND SHOULDER PAIN - Chief complaint Chief Complaint: Ext Problem - History obtained from History obtained from: Patient - Additonal information Additional information: 79-year-old woman with past medical history of chronic lymphedema with home health visits every 4 days for wound care, ambulatory with a walker at baseline, presents status post ground-level fall this evening out of bed less than 2 feet. She complains of right hip pain and right shoulder pain that was sudden in onset, aching, worse with range of motion and pressing on the hip and shoulder, nonradiating constant. Patient does not believe that she hit her head and has no other complaints at this time. 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 : Incontinence HEENT: None Psych: None Musculoskeletal: Other Derm: Other - Past Surgical History Past Surgical History: No - Present Medications Home Medications: Ambulatory Orders Medication Instructions Recorded Confirmed Metoprolol Tartrate [Lopressor] 25 mg PO BID #60 05/14/20 07/18/20 Multivitamin W/Minerals [Theragran 1 tab PO DAILYWM #30 05/14/20 07/18/20 M] Potassium Chloride [K-Dur] 20 meq PO 0800 #30 05/14/20 07/18/20 - Allergies Allergies/Adverse Reactions: Allergies Allergy/AdvReac Type Severity Reaction Status Date / Time No Known Drug Allergies Allergy Verified 07/18/20 04:02 - Social History Does the pt smoke?: No Smoking Status: Never smoker Does the pt drink ETOH?: No Does the pt have substance abuse?: No - Immunizations Immunizations are current?: Yes - POLST Patient has POLST: No POLST Status: Full Code PD ED PE NORMAL - Vitals Vital signs reviewed: Yes - General General: No acute distress, Well developed/nourished, Other (Alert and oriented x2) - HEENT HEENT: Atraumatic, PERRL, EOMI - Neck Neck: Supple, no meningeal sign - Cardiac Cardiac: RRR - Respiratory Respiratory: No respiratory distress, Clear bilaterally - Abdomen Abdomen: Non tender, Non distended, Other (No pelvic tenderness on exam) - Back Back: No spinal TTP - Derm Derm: Normal color, Warm and dry - Extremities Extremities: No deformity, Normal ROM s pain - Neuro Neuro: No motor deficit, No sensory deficit - Psych Psych: Normal mood, Normal affect Results - Vitals Vitals: Vital Signs - 24 hr 07/18/20 07/18/20 07/18/20 04:02 04:06 04:22 Temperature 36.2 C L 36.2 C L Heart Rate 90 90 Respiratory 16 16 16 Rate Blood Pressure 204/125 H 204/125 H O2 Saturation 98 98 07/18/20 04:51 Temperature Heart Rate 80 Respiratory 16 Rate Blood Pressure 167/109 H O2 Saturation 98 Oxygen O2 Source Room air - Labs Labs: Laboratory Tests 07/18/20 04:19 Urine Color YELLOW Urine Clarity CLEAR Urine pH 7.0 Ur Specific [place] 1.020 Urine Protein NEGATIVE Urine Glucose (UA) NEGATIVE Urine Ketones NEGATIVE Urine Occult Blood NEGATIVE Urine Nitrite POSITIVE H Urine Bilirubin NEGATIVE Urine Urobilinogen 0.2 (NORMAL) Ur Leukocyte Esterase TRACE H Urine RBC 0-5 Urine WBC 4-5 Ur Squamous Epith Cells NONE SEEN Urine Bacteria Moderate H Ur Microscopic Review INDICATED Urine Culture Comments INDICATED PD MEDICAL DECISION MAKING - ED course ED course: 79-year-old woman presents with fall from bed with concerns cited from EMS of her inability to care for self due to frequent visits recently. She lives alone with her who is ambulatory independently. She does have family in [place] but no one on the [place]. We will have social work see her and Adult Protective Services have been called overnight. Patient endorsed to Dr. Conley for further management and care.
[2020-07-18] MEDS ORDERED: SULFAMETH/TRIMETH DS 800/160 MG TABLET PO STA (08:41)
--- NOTE | 2020-07-18 08:43 | XRAY Report ---
PROCEDURE: Shoulder 2 View RT INDICATIONS: pain s/p fall TECHNIQUE: 3 views of the shoulder were acquired. COMPARISON: None. FINDINGS: Bones: Exam is somewhat limited given patient's inability to appropriately position. Osseous structur es are demineralized. There is no acute fracture. There are mild degenerative changes of the acute, c lavicular and glenohumeral joints. Soft tissues: No suspicious soft tissue calcifications. Imaged lungs appear clear. IMPRESSION: No acute osseous abnormality within limits of this exam. Agree with preliminary report Reviewed by: Kwabena Espinal DO on 07/18/2020 7:42 AM A[facility]AN Approved by: Kwabena Espinal DO on 07/18/2020 7:42 AM AHSAN Station ID: [id number]
--- NOTE | 2020-07-18 08:45 | XRAY Report ---
PROCEDURE: Hip w/Pelvis 2-3V RT INDICATIONS: pain s/p fall TECHNIQUE: AP pelvis with lateral view(s) of the right hip(s). COMPARISON: None. FINDINGS: Bones: Osseous structures are demineralized limiting evaluation for nondisplaced fracture. There is n o displaced fracture. Alignment is normal. Mild to moderate degenerative changes of the hips. Degener ative changes of the spine are incompletely evaluated. Soft tissues: The visualized bowel gas pattern is normal. Enthesophyte formation is noted at the gre ater trochanters and iliac bones bilaterally. Pelvic phleboliths. IMPRESSION: No acute osseous abnormality. Agree with preliminary report. Reviewed by: Kwabena Espinal DO on 07/18/2020 7:44 AM A[facility]AN Approved by: Kwabena Espinal DO on 07/18/2020 7:44 AM A[facility]AN Station ID: [id number]
[2020-07-18] MEDS ORDERED: HYDROcod/ACETAM 5/325 MG TABLET PO STA (13:22)
--- NOTE | 2020-07-18 14:35 | ED Physician Documentation ---
ED Addendum - Addendum Addendum: 07/18/20 14:24 79 y/o female sign out to me with social work consult santy has had a fall out of bed this morning landing on the right side. She was evaluated by Dr. Umaña and x-rays of the shoulder and hip are obtained and no fractures are identified. The patient's living situation is called in to question and the health social work professor is consulted. She has some in home help 3 days per week and a at home that is helpful but forgetful. He is still driving. The patient complains of suprapubic pain and her bladder is found to be "very" full and painful to palpate. She does acknowledge urinary frequency and a long time to get out of bed and to the camode. She is diagnosed with a UTI and treatment with septra is initiated. The patient son that lives closest to his parents is working on further resources for his parents and is invested in having Kerry at home. She is discharged to home in the care of her .
[2020-07-18 15:33] VITALS: BP 133/76
== END 2020-07-18 15:30 | disposition home or self-care (01) ==
LOC: EDUNIT# → ED 03:56
DX: M25.551 Pain in right hip (principal); M25.511 Pain in right shoulder; W06.XXXA Fall from bed, initial encounter; Y92.003 Bedroom of unspecified non-institutional (private) residence as the place of occurrence of the external cause; N39.0 Urinary tract infection, site not specified; M16.0 Bilateral primary osteoarthritis of hip; I89.0 Lymphedema, not elsewhere classified; I10 Essential (primary) hypertension
CPT/HCPCS: 73030; 73502; 81001; 87077; 87086; 87181; 99284; A9270; 81003

== ENCOUNTER 2020-08-17 20:48 | Outpatient (CLI) | payer MEDICARE, BC | END 2020-08-17 20:49 | disposition critical access hospital (66) | LOC: EMS 20:48 | DX: M25.512 Pain in left shoulder (principal) | CPT/HCPCS: A0425; A0429 ==

== ENCOUNTER 2020-08-17 21:23 | Emergency (ER) | payer MEDICARE, BC ==
[2020-08-17] MEDS ORDERED: MORPHINE 10 MG/ML VIAL IM STA (21:30)
[2020-08-17] MEDS ORDERED: KETOROLAC 30 MG/ML VIAL IM STA (21:30)
--- NOTE | 2020-08-17 21:31 | ED Physician Documentation ---
PD HPI UPPER EXT INJURY - Stated complaint Stated Complaint: GLF/ L SHOULDER PX - History obtained from History obtained from: Patient, EMS - History of Present Illness Location: Left, Shoulder, Arm Type of injury: Fall (she states lost balance. Denies symptoms prior.) Where injury occurred: Home Timing - onset: How many hours ago (1), Today Timing - details: Abrupt onset, Still present Improved by: Rest Worsened by: Moving, Palpating Associated symptoms: No: Weakness, Numbness Similar symptoms before: Has not had sx before Review of Systems Constitutional: denies: Fever, Chills Nose: denies: Rhinorrhea / runny nose, Congestion Throat: denies: Sore throat Respiratory: denies: Cough GI: denies: Abdominal Pain, Nausea, Vomiting Neurologic: denies: Focal weakness, Numbness, Headache, Head injury, LOC PD PAST MEDICAL HISTORY - Past Medical History Cardiovascular: Hypertension Respiratory: None Neuro: Dementia, Tremors Endocrine/Autoimmune: None GI: 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 Living Arrangement: reports: At home - Social History Does the pt smoke?: No Smoking Status: Never smoker Does the pt drink ETOH?: No Does the pt have substance abuse?: No - Immunizations Immunizations are current?: Yes - POLST Patient has POLST: No POLST Status: Full Code PD ED PE NORMAL - Vitals Vital signs reviewed: Yes - General General: Alert and oriented X 3, Well developed/nourished, Other (kyphotic, alert and conversant. Guarding ROM of the left upper arm. ) - HEENT HEENT: Atraumatic - Neck Neck: Supple, no meningeal sign, No bony TTP - Cardiac Cardiac: RRR, No murmur - Respiratory Respiratory: Clear bilaterally - Abdomen Abdomen: Soft, Non tender - Derm Derm: Normal color, Warm and dry - Extremities Extremities: Other (left humerus area with tenderness but no obvious deformity. Forearm not tender. Normal color, pulses, cap refill distally. ) - Neuro Neuro: Alert and oriented X 3, No motor deficit, Normal speech Results - Vitals Vitals: Vital Signs - 24 hr 08/17/20 08/18/20 21:29 06:44 Temperature 36.5 C 36.2 C L Heart Rate 68 72 Respiratory 16 12 Rate Blood Pressure 143/78 H 138/72 H O2 Saturation 97 97 Oxygen O2 Source Room air PD MEDICAL DECISION MAKING - ED course Complexity details: re-evaluated patient (ptient says she will be able to get by with her at home. Declines SW need or rehab/placement. ), considered differential (humerus shaft fracture), d/w patient, d/w event management consultant (Bj - treat with sugartong splint and sling. ) Departure - Departure Disposition: Home, Self Care Clinical Impression: Fall from slip, trip, or stumble Qualifiers: Encounter type: initial encounter Qualified Code(s): W01.0XXA - Fall on same level from slipping, tripping and stumbling without subsequent striking against object, initial encounter Humeral shaft fracture Qualifiers: Encounter type: initial encounter Fracture type: closed Fracture morphology: comminuted Fracture alignment: nondisplaced Laterality: left Qualified Code(s): S42.355A - Nondisplaced comminuted fracture of shaft of humerus, left arm, initial encounter for closed fracture Condition: Stable Record reviewed to determine appropriate education?: Yes Instructions: ED Fx Upper Ext Follow-Up: Ana Zarate MD [Primary Care Provider] - Edison Lorenzo MD [Provider Admit Priv/Credential] - Comments: Keep the sling and splint in place. Rest and sleep reclined or sitting up to allow gravity to help with the position of the arm and shoulder. Tylenol 500 mg 4 times a day for the next week or so. To that add oxycodone if needed for worse pain half tablet at a time every 6 hours. Follow-up with orthopedics later this week or early next week, call tomorrow for an appointment. At this point the orthopedist believes the fracture should be able to heal with being splinted in place and does not necessarily need surgical repair. They can reassess it on follow-up.
--- OUTSIDE RECORDS SUMMARY | 2020-08-17 21:35 | EXTERNAL MEDICAL SUMMARY RPT | Continuity of Care Document ---
:1940 Demographics Phone Unavailable Preferred Language Unknown Marital Status Unknown Judaism Affiliation Unknown Race Unknown Ethnic Group Unknown Author Organization [facility] Address [address] [phone] Phone Allergies Encounters Medications Problems Results
[2020-08-18] MEDS ORDERED: oxyCODONE/ACET 5/325 Prepack 4 PO STA (01:31)
[2020-08-18 06:50] VITALS: BP 138/72
[2020-08-18] MEDS ORDERED: ACETAMINOPHEN 325 MG TABLET PO STA (07:43)
--- NOTE | 2020-08-18 08:35 | XRAY Report ---
PROCEDURE: Humerus LT INDICATIONS: fell against wall; pain left shoulder/humerus TECHNIQUE: 2 views of the humerus were acquired. COMPARISON: None FINDINGS: Bones: Acute comminuted fractures involving proximal to mid shaft of left humerus beginning at the le feroz of the surgical neck is seen with anterior lateral displacement of the distal humeral shaft and u p to 1.3 cm overlapping at fracture site. No dislocation. Moderate shoulder joint osteoarthritic espinosa ges are seen. No suspicious bony lesions. Soft tissues: No suspicious soft tissue calcifications. IMPRESSION: Acute comminuted and displaced proximal to mid left humeral shaft fractures as above. Left shoulder j oint osteoarthritis. No dislocation. Reviewed by: Maverick Powell MD on 08/18/2020 8:34 AM PDT Approved by: Maverick Powell MD on 08/18/2020 8:34 AM PDT Station ID: [id number]
== END 2020-08-18 08:00 | disposition home or self-care (01) ==
LOC: EDBD → EDUNIT# → ED 21:23
DX: S42.355A Nondisplaced comminuted fracture of shaft of humerus, left arm, initial encounter for closed fracture (principal); S42.202A Unspecified fracture of upper end of left humerus, initial encounter for closed fracture; W01.0XXA Fall on same level from slipping, tripping and stumbling without subsequent striking against object, initial encounter; Y92.009 Unspecified place in unspecified non-institutional (private) residence as the place of occurrence of the external cause; M19.012 Primary osteoarthritis, left shoulder; I10 Essential (primary) hypertension
CPT/HCPCS: 73060; 96372; 99283; 99284; A9270

== ENCOUNTER 2020-08-18 08:00 | Outpatient (CLI) | payer MEDICARE, BC | END 2020-08-18 08:01 | disposition home or self-care (01) | LOC: EMS 08:00 | PROVIDERS: ATTEND Emergency Medicine | DX: S42.302D Unspecified fracture of shaft of humerus, left arm, subsequent encounter for fracture with routine healing (principal) | CPT/HCPCS: A0425; A0428 ==

== ENCOUNTER 2020-08-27 09:47 | Outpatient (CLI) | payer MEDICARE, BC | END 2020-08-27 09:48 | disposition critical access hospital (66) | LOC: EMS 09:47 | DX: R41.0 Disorientation, unspecified (principal) | CPT/HCPCS: A0425; A0429 ==

== ENCOUNTER 2020-08-27 10:26 | Inpatient (IN) | payer MEDICARE, BC ==
--- OUTSIDE RECORDS SUMMARY | 2020-08-27 10:50 | EXTERNAL MEDICAL SUMMARY RPT | Continuity of Care Document ---
:1940 Demographics Phone Unavailable Preferred Language Unknown Marital Status Unknown Episcopal Affiliation Unknown Race Unknown Ethnic Group Unknown Author Organization [facility] Address [address] [place] [address] Phone Allergies Encounters Medications Problems Results
--- NOTE | 2020-08-27 10:59 | ED Physician Documentation ---
PD HPI Fall - Stated complaint Stated Complaint: GLF - Chief complaint Chief Complaint: General - History obtained from History obtained from: Patient, Family - History of Present Illness Mechanism of injury: Lost balance Fall distance: Standing position (He states she was walking with her to the restroom and stumbled and fell forward and left. She had a recent humerus fracture show unable to use her normal walker.) Where injury occurred: Home Injury(ies) location: Left Uppper Extremity (feeling re-injury to left humerus with fall today. Denies new pains.). No: Head, Face, Chest, Abdomen Quality of pain: Aching (left humerus area with pain still, with recent fractures. She says she had taken off the splint and tried to replace it.) Associated symptoms: No: LOC, AMS Worsens with: Movement Contributing factors: No: Anticoagulated, Intoxicated Similar symptoms before: Diagnosis (general weakness, balance problems, uses walker. Recent falls.) Recently seen: Emergency Dept (Has been seen for falls recently. She lives with her and they do have part-time home aids. 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 HEENT: None Psych: None Musculoskeletal: Other (kyphosis) Derm: Other - Past Surgical History Past Surgical History: No - Present Medications Home Medications: Ambulatory Orders Medication Instructions Recorded Confirmed No Known Home Medications 08/18/20 08/27/20 - Allergies Allergies/Adverse Reactions: Allergies Allergy/AdvReac Type Severity Reaction Status Date / Time No Known Drug Allergies Allergy Verified 08/17/20 21:29 - Social History Does the pt smoke?: No Smoking Status: Never smoker Does the pt drink ETOH?: No Does the pt have substance abuse?: No - Immunizations Immunizations are current?: Yes - POLST Patient has POLST: No POLST Status: Full Code PD ED PE NORMAL - Vitals Vital signs reviewed: Yes - General General: Alert and oriented X 3, Well developed/nourished (She is a somewhat small in stature which is enhanced by a kyphosis. She is able to answer questions clearly. Denies headache) - HEENT HEENT: Atraumatic - Neck Neck: Supple, no meningeal sign, No bony TTP, Other (marked kyphosis. ) - Cardiac Cardiac: RRR, No murmur - Respiratory Respiratory: Clear bilaterally, Other (no chestwall tenderness. Has yellow bruising on chest and upper left arm down to elbow/forearm that looks related to humerus fracture. ) - Abdomen Abdomen: Soft, Non tender - Derm Derm: Normal color, Warm and dry - Extremities Extremities: No calf tenderness / cord, Other (Both Lower Legs Which Were Removed Showing Superficial Ulcerations and Chronic Stasis Changes but No Obvious Acute Infectious Process.) - Neuro Neuro: Alert and oriented X 3, No motor deficit, Normal speech Results - Vitals Vitals: Vital Signs - 24 hr 08/27/20 08/27/20 08/27/20 10:30 11:50 13:08 Temperature 35.6 C L Heart Rate 89 72 71 Respiratory 16 16 16 Rate Blood Pressure 163/116 H 127/80 122/90 H O2 Saturation 96 93 97 08/27/20 15:31 Temperature Heart Rate 77 Respiratory 16 Rate Blood Pressure 121/97 H O2 Saturation 98 Oxygen O2 Source Room air - Labs Labs: Laboratory Tests 08/27/20 08/27/20 08/27/20 11:36 11:36 16:00 WBC 9.7 RBC 3.36 L Hgb 9.3 L Hct 30.1 L MCV 89.6 MCH 27.7 MCHC 30.9 L RDW 17.6 H Plt Count 200 MPV 10.4 Neut # (Auto) 8.0 H Lymph # (Auto) 0.8 L [place] # (Auto) 0.9 Eos # (Auto) 0.0 Baso # (Auto) 0.0 Absolute Nucleated RBC 0.00 Nucleated RBC % 0.0 Sodium 143 Potassium 3.6 Chloride 106 Carbon Dioxide 27 Anion Gap 10.0 BUN 29 H Creatinine 0.6 Estimated GFR (MDRD) 96 Glucose 104 H Calcium 8.9 Magnesium 1.9 Total Bilirubin 1.2 H AST 19 ALT 20 Alkaline Phosphatase 82 Total Creatine Kinase 101 Total Protein 5.7 L Albumin 2.8 L Globulin 2.9 Albumin/Globulin Ratio 1.0 Lipase 20 L Urine Color DARK YELLOW Urine Clarity HAZY Urine pH 6.0 Ur Specific [place] 1.025 Urine Protein NEGATIVE Urine Glucose (UA) NEGATIVE Urine Ketones 15 H Urine Occult Blood NEGATIVE Urine Nitrite NEGATIVE Urine Bilirubin NEGATIVE Urine Urobilinogen 0.2 (NORMAL) Ur Leukocyte Esterase NEGATIVE Urine RBC 0-5 Urine WBC 6-10 H Ur Squamous Epith Cells FEW Squamous Urine Bacteria Many H Urine Mucus Few Strands Ur Microscopic Review INDICATED Urine Culture Comments NOT INDICATED - Rads (name of study) humerus left Radiology: Prelim report reviewed (prior fracture still present and more displaced at this time. ), See rad report PD MEDICAL DECISION MAKING - ED course Complexity details: reviewed results, re-evaluated patient (She regarding failure to thrive and poor care at home despite her 's best efforts.), considered differential (Having social work evaluate the patient in the situati on.), d/w patient Departure - Departure Disposition: ED Place in Observation Clinical Impression: Frequent falls, Generalized weakness, Failure to thrive in adult Humerus shaft fracture Qualifiers: Encounter type: subsequent encounter Fracture type: closed Fracture morphology: comminuted Fracture alignment: displaced Laterality: left Fracture healing: with delayed healing Qualified Code(s): S42.352G - Displaced comminuted fracture of shaft of humerus, left arm, subsequent encounter for fracture with delayed healing Condition: Stable Record reviewed to determine appropriate education?: Yes Instructions: ED Fx Upper Ext Follow-Up: Ana Zarate MD [Primary Care Provider] - Edison Lorenzo MD [Provider Admit Priv/Credential] - Comments: Tylenol 650 mg 4 times a day regularly for pain. Stay well-hydrated. Keep the splint on the upper arm to help reduce motion and there and allow better healing. Follow-up with orthopedics next week, call tomorrow or later today for an appointment. Try to have increased help at home with the increased caregiver time. Contact your primary care if you feel you are not doing well enough at home and need further assistance such as assisted living or rehab or such.
[2020-08-27] MEDS ORDERED: ACETAMINOPHEN 325 MG TABLET PO STA (11:19)
[2020-08-27 11:40] LABS: BASOPHILS % (AUTO) 0.2 %; EOSINOPHILS % (AUTO) 0.2 %; HCT - HEMATOCRIT 30.1 % (37.0-47.0); HGB - HEMOGLOBIN 9.3 g/dL (12.0-16.0); LYMPHOCYTES # (AUTO) 0.8 10^3/uL (1.5-3.5); LYMPHOCYTES % (AUTO) 7.8 %; MEAN CORPUSCULAR HEMOGLOBIN 27.7 pg (27.0-31.0); MEAN CORPUSCULAR HGB CONC 30.9 g/dL (32.0-36.0); MEAN CORPUSCULAR VOLUME 89.6 fL (81.0-99.0); MEAN PLATELET VOLUME 10.4 fL (7.9-10.8); MONOCYTES # (AUTO) 0.9 10^3/uL (0.0-1.0); MONOCYTES % (AUTO) 9.3 %; NEUTROPHILS % (AUTO) 81.9 %; PLT - PLATELET COUNT 200 10^3/uL (130-450); RED BLOOD COUNT 3.36 10^6/uL (4.20-5.40); RED CELL DISTRIBUTION WIDTH 17.6 % (12.0-15.0); WHITE BLOOD COUNT 9.7 x10^3/uL (4.8-10.8)
--- NOTE | 2020-08-27 11:49 | XRAY Report ---
PROCEDURE: Humerus LT INDICATIONS: recent humerus fracture; follow up TECHNIQUE: AP and lateral views of the humerus were acquired. COMPARISON: 08/17/2020 FINDINGS: Bones: Again noted is a segmental fracture of the humerus involving the proximal neck and slightly pr oximal to the mid shaft. There is significant displacement of the proximal humeral neck fracture and mild displacement and angulation of the more distal fracture. Alignment is worsened. No suspicious nessa ny lesions. Soft tissues: No suspicious soft tissue calcifications. IMPRESSION: Worsening alignment of segmental fractures of the left humerus with increased angulation and displace ment. Reviewed by: Mark Arndt MD on 08/27/2020 11:48 AM PDT Approved by: Mark Arndt MD on 08/27/2020 11:48 AM PDT Station ID: [id number]
[2020-08-27 11:56] LABS: ALBUMIN 2.8 g/dL (3.2-5.5); BILIRUBIN,TOTAL 1.2 mg/dL (0.2-1.0); CALCIUM 8.9 mg/dL (8.5-10.3); CREATININE 0.6 mg/dL (0.4-1.0); MAGNESIUM 1.9 mg/dL (1.7-2.8); POTASSIUM 3.6 mmol/L (3.5-5.0); TOTAL PROTEIN 5.7 g/dL (6.7-8.2)
[2020-08-27 16:10] LABS: BILIRUBIN,URINE NEGATIVE (NEGATIVE); GLUCOSE, URINE (UA) NEGATIVE (NEGATIVE); KETONES,URINE (UA) 15 mg/dL (NEGATIVE); LEUKOCYTE ESTERASE, URINE NEGATIVE (NEGATIVE); NITRITE,URINE NEGATIVE (NEGATIVE); OCCULT BLOOD,URINE NEGATIVE (NEGATIVE); PROTEIN,URINE NEGATIVE (NEGATIVE); UROBILINOGEN,URINE 0.2 (NORMAL) E.U./dL (NORMAL)
[2020-08-27 16:15] LABS: CLARITY,URINE HAZY (CLEAR)
[2020-08-27 16:17] LABS: BACTERIA,URINE Many /HPF (None Seen); MUCUS,URINE Few Strands; RBC,URINE 0-5 /HPF (0-5); SQUAMOUS EPITHELIAL CELL,UR FEW Squamous (<= Few)
[2020-08-27] MEDS ORDERED: cefTRIAXone 1 GM VIAL IM STA (16:55)
[2020-08-27] MEDS ORDERED: cefTRIAXone 1 GM VIAL IVP STA (16:55)
[2020-08-27] MEDS ORDERED: ONDANSETRON ODT 4 MG TABLET TL PRN (17:09)
[2020-08-27] MEDS ORDERED: oxyCODONE 5 MG TABLET PO PRN (17:09)
[2020-08-27] MEDS ORDERED: ONDANSETRON 4 MG/2 ML VIAL IVP PRN (17:09)
[2020-08-27] MEDS ORDERED: SODIUM CHLORIDE FLUSH 0.9% 10 ML SYRINGE IVP PRN (17:09)
--- OUTSIDE RECORDS SUMMARY | 2020-08-27 17:25 | EXTERNAL MEDICAL SUMMARY RPT | Continuity of Care Document ---
:1940 Demographics Phone Unavailable Preferred Language Unknown Marital Status Unknown Episcopal Affiliation Unknown Race Unknown Ethnic Group Unknown Author Organization [facility] Address [address] [phone] Phone Allergies Encounters Medications Problems Results
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
[2020-08-27 18:16] LABS: B. PARAPERTUSSIS- RESP PCR PAN NOT DETECTED; B. PERTUSSIS- RESP PCR PANEL NOT DETECTED; C. PNEUMONIAE- RESP PCR PANEL NOT DETECTED; CORONAVIRUS 229E-RESP PCR NOT DETECTED; CORONAVIRUS HKU1-RESP PCR NOT DETECTED; CORONAVIRUS NL63-RESP PCR NOT DETECTED; CORONAVIRUS OC43-RESP PCR NOT DETECTED; HUMAN METAPNEUMOVIRUS NOT DETECTED; INFLUENZA A- RESP PCR PANEL NOT DETECTED; INFLUENZA B - RESP PCR PANEL NOT DETECTED; M. PNEUMONIAE- RESP PCR PANEL NOT DETECTED; PARAINFLUENZA VIRUS 1 NOT DETECTED; PARAINFLUENZA VIRUS 2 NOT DETECTED; PARAINFLUENZA VIRUS 3 NOT DETECTED; PARAINFLUENZA VIRUS 4 NOT DETECTED; RHINOVIRUS/ENTEROVIRUS NOT DETECTED; RSV- RESP PCR PANEL NOT DETECTED; SARS-CoV-2 -RESP PCR PANEL NOT DETECTED
[2020-08-27] MEDS: METOPROLOL TARTRATE 25 MG TABLET PO SCH (21:31)
[2020-08-28] MEDS: SODIUM CHLORIDE FLUSH 0.9% 10 ML SYRINGE IVP SCH ×3 (00:12→16:24)
[2020-08-28 04:43] LABS: BASOPHILS % (AUTO) 0.2 %; EOSINOPHILS # (AUTO) 0.1 10^3/uL (0.0-0.7); EOSINOPHILS % (AUTO) 0.5 %; HCT - HEMATOCRIT 28.4 % (37.0-47.0); LYMPHOCYTES # (AUTO) 0.8 10^3/uL (1.5-3.5); LYMPHOCYTES % (AUTO) 7.9 %; MEAN CORPUSCULAR HEMOGLOBIN 27.9 pg (27.0-31.0); MEAN CORPUSCULAR HGB CONC 31.7 g/dL (32.0-36.0); MEAN CORPUSCULAR VOLUME 87.9 fL (81.0-99.0); MONOCYTES % (AUTO) 9.8 %; NEUTROPHILS % (AUTO) 81.1 %; PLT - PLATELET COUNT 205 10^3/uL (130-450); RED BLOOD COUNT 3.23 10^6/uL (4.20-5.40); RED CELL DISTRIBUTION WIDTH 17.7 % (12.0-15.0); WHITE BLOOD COUNT 9.8 x10^3/uL (4.8-10.8)
[2020-08-28 04:54] LABS: CALCIUM 8.8 mg/dL (8.5-10.3); CREATININE 0.6 mg/dL (0.4-1.0); POTASSIUM 3.7 mmol/L (3.5-5.0)
--- NOTE | 2020-08-28 06:58 | PHARMACY PROGRESS NOTE ---
- Best Possible Medication History Admit Date and Time: 08/27/20 8966 Processed by: Nursing Medication History completed: Yes Patient Interview: Completed Secondary Source(s): Pharmacy records, Insurance records As the person ultimately responsible for medication therapy, providers are able to order a medication from an existing home medication list in [facility] via the "Reconcile Routine" prior to Confirmation of that medication by support engineer. Such practice is discouraged except when the physician, in their clinical judgment, deems that a medical need exists for a medication without regard to previous use.
[2020-08-28] MEDS: ENOXAPARIN 40 MG/0.4 ML SYRINGE SUBQ SCH (08:06)
[2020-08-28] MEDS: METOPROLOL TARTRATE 25 MG TABLET PO SCH ×2 (08:06→20:33)
--- NOTE | 2020-08-28 15:57 | PROVIDER PROGRESS NOTE ---
Subjective - Prog Note Date Prog Note Date: 08/28/20 - Subjective Subjective: She reports her pain is controlled. She is able to get out of bed and into a chair today. She denies any chest pain or dyspnea. She knows she is at the hospital. is present at bedside. Current Medications - Current Medications Current Medications: Active Medications Acetaminophen (Acetaminophen 325 Mg Tablet) 650 mg PO Q4HR PRN PRN Reason: Pain 1 to 4 Enoxaparin Sodium (Enoxaparin 40 Mg/0.4 Ml Syringe) 40 mg SUBQ DAILY [facility] Last Admin: 08/28/20 08:06 Dose: 40 mg Documented by: Metoprolol Tartrate (Metoprolol Tartrate 25 Mg Tablet) 25 mg PO BID [facility] Last Admin: 08/28/20 08:06 Dose: 25 mg Documented by: Multivitamins/Minerals (Multivitamin W/Minerals Tablet) 1 tab PO DAILYWM [facility] Ondansetron HCl (Ondansetron Odt 4 Mg Tablet) 4 mg TL Q6HR PRN PRN Reason: Nausea / Vomiting Ondansetron HCl (Ondansetron 4 Mg/2 Ml Vial) 4 mg IVP Q6HR PRN PRN Reason: Nausea / Vomiting Oxycodone HCl (Oxycodone 5 Mg Tablet) 5 mg PO Q4HR PRN PRN Reason: Pain 5 to 7 Sodium Chloride (Sodium Chloride Flush 0.9% 10 Ml Syringe) 10 ml IVP PRN PRN PRN Reason: NEEDED PER PROVIDER ORDERS Sodium Chloride (Sodium Chloride Flush 0.9% 10 Ml Syringe) 10 ml IVP 0100,0900,1700 [facility] Last Admin: 08/28/20 08:07 Dose: 10 ml Documented by: No Known Home Medications 08/18/20 Objective - Vital Signs/Intake & Output Reviewed Vital Signs: Yes Vital Signs: Vital Signs x48h Pulse BP BP 08/28/20 13:00 83 138/97 H 08/28/20 08:06 131/85 H Intake & Output: Intake & Output 08/25/20 08/26/20 08/27/20 08/28/20 23:59 23:59 23:59 23:59 Intake Total 50 300 Output Total 100 Balance 50 200 - Objective General Appearance: positive: No acute distress, Alert Respiratory: positive: No respiratory distress. negative: Wheezes, Rales Cardiovascular: positive: Regular rate & rhythm, No murmur. negative: Tachycardia Skin: positive: Other (Dressing in place over the bilateral lower extremities. Multiple areas of ecchymosis over her chest, neck and left upper extremity) Extremities: positive: Pedal edema (+1 pitting edema in her bilateral feet.), Other (Her left upper extremity is in a sling. She has +1 pitting edema throughout the arm with ecchymosis throughout.) - Lab Results Fish Bones: 08/28/20 04:15 08/28/20 04:15 Other Labs: Lab Results x24hrs 08/28/20 08/28/20 08/27/20 Range/Units 04:15 04:15 17:21 WBC 9.8 (4.8-10.8) x10^3/uL RBC 3.23 L (4.20-5.40) 10^6/uL Hgb 9.0 L (12.0-16.0) g/dL Hct 28.4 L (37.0-47.0) % MCV 87.9 (81.0-99.0) fL MCH 27.9 (27.0-31.0) pg MCHC 31.7 L (32.0-36.0) g/dL RDW 17.7 H (12.0-15.0) % Plt Count 205 (130-450) 10^3/uL MPV 11.0 H (7.9-10.8) fL Neut # (Auto) 8.0 H (1.5-6.6) 10^3/uL Lymph # (Auto) 0.8 L (1.5-3.5) 10^3/uL [place] # (Auto) 1.0 (0.0-1.0) 10^3/uL Eos # (Auto) 0.1 (0.0-0.7) 10^3/uL Baso # (Auto) 0.0 (0.0-0.1) 10^3/uL Absolute Nucleated RBC 0.00 x10^3/uL Nucleated RBC % 0.0 /100WBC Sodium 142 (135-145) mmol/L Potassium 3.7 (3.5-5.0) mmol/L Chloride 107 (101-111) mmol/L Carbon Dioxide 26 (21-32) mmol/L Anion Gap 9.0 (6-13) BUN 29 H (6-20) mg/dL Creatinine 0.6 (0.4-1.0) mg/dL Estimated GFR (MDRD) 96 (>89) Glucose 90 (70-100) mg/dL Calcium 8.8 (8.5-10.3) mg/dL Urine Color Urine Clarity (CLEAR) Urine pH (5.0-7.5) PH Ur Specific [place] (1.002-1.030) Urine Protein (NEGATIVE) mg/dL Urine Glucose (UA) (NEGATIVE) mg/dL Urine Ketones (NEGATIVE) mg/dL Urine Occult Blood (NEGATIVE) Urine Nitrite (NEGATIVE) Urine Bilirubin (NEGATIVE) Urine Urobilinogen (NORMAL) E.U./dL Ur Leukocyte Esterase (NEGATIVE) Urine RBC (0-5) /HPF Urine WBC (0-5) /HPF Ur Squamous Epith Cells (<= Few) Urine Bacteria (None Seen) /HPF Urine Mucus Ur Microscopic Review Urine Culture Comments Nasal Adenovirus (PCR) NOT DETECTED Nasal B. parapertussis DNA (PCR) NOT DETECTED Nasal Coronavir 229E PCR NOT DETECTED Nasal Coronavir HKU1 PCR NOT DETECTED Nasal Coronavir NL63 PCR NOT DETECTED Nasal Coronavir OC43 PCR NOT DETECTED Nasal Enterovir/Rhinovir PCR NOT DETECTED Nasal Influenza B PCR NOT DETECTED Nasal Influenza A PCR NOT DETECTED Nasal Parainfluen 1 PCR NOT DETECTED Nasal Parainfluen 2 PCR NOT DETECTED Nasal Parainfluen 3 PCR NOT DETECTED Nasal Parainfluen 4 PCR NOT DETECTED Nasal RSV (PCR) NOT DETECTED Nasal B.pertussis DNA PCR NOT DETECTED Nasal C.pneumoniae (PCR) NOT DETECTED Mohinder Human Metapneumo PCR NOT DETECTED Nasal M.pneumoniae (PCR) NOT DETECTED Nasal SARS-CoV-2 (PCR) NOT DETECTED 08/27/20 Range/Units 16:00 WBC (4.8-10.8) x10^3/uL RBC (4.20-5.40) 10^6/uL Hgb (12.0-16.0) g/dL Hct (37.0-47.0) % MCV (81.0-99.0) fL MCH (27.0-31.0) pg MCHC (32.0-36.0) g/dL RDW (12.0-15.0) % Plt Count (130-450) 10^3/uL MPV (7.9-10.8) fL Neut # (Auto) (1.5-6.6) 10^3/uL Lymph # (Auto) (1.5-3.5) 10^3/uL [place] # (Auto) (0.0-1.0) 10^3/uL Eos # (Auto) (0.0-0.7) 10^3/uL Baso # (Auto) (0.0-0.1) 10^3/uL Absolute Nucleated RBC x10^3/uL Nucleated RBC % /100WBC Sodium (135-145) mmol/L Potassium (3.5-5.0) mmol/L Chloride (101-111) mmol/L Carbon Dioxide (21-32) mmol/L Anion Gap (6-13) BUN (6-20) mg/dL Creatinine (0.4-1.0) mg/dL Estimated GFR (MDRD) (>89) Glucose (70-100) mg/dL Calcium (8.5-10.3) mg/dL Urine Color DARK YELLOW Urine Clarity HAZY (CLEAR) Urine pH 6.0 (5.0-7.5) PH Ur Specific [place] 1.025 (1.002-1.030) Urine Protein NEGATIVE (NEGATIVE) mg/dL Urine Glucose (UA) NEGATIVE (NEGATIVE) mg/dL Urine Ketones 15 H (NEGATIVE) mg/dL Urine Occult Blood NEGATIVE (NEGATIVE) Urine Nitrite NEGATIVE (NEGATIVE) Urine Bilirubin NEGATIVE (NEGATIVE) Urine Urobilinogen 0.2 (NORMAL) (NORMAL) E.U./dL Ur Leukocyte Esterase NEGATIVE (NEGATIVE) Urine RBC 0-5 (0-5) /HPF Urine WBC 6-10 H (0-5) /HPF Ur Squamous Epith Cells FEW Squamous (<= Few) Urine Bacteria Many H (None Seen) /HPF Urine Mucus Few Strands Ur Microscopic Review INDICATED Urine Culture Comments NOT INDICATED Nasal Adenovirus (PCR) Nasal B. parapertussis DNA (PCR) Nasal Coronavir 229E PCR Nasal Coronavir HKU1 PCR Nasal Coronavir NL63 PCR Nasal Coronavir OC43 PCR Nasal Enterovir/Rhinovir PCR Nasal Influenza B PCR Nasal Influenza A PCR Nasal Parainfluen 1 PCR Nasal Parainfluen 2 PCR Nasal Parainfluen 3 PCR Nasal Parainfluen 4 PCR Nasal RSV (PCR) Nasal B.pertussis DNA PCR Nasal C.pneumoniae (PCR) Mohinder Human Metapneumo PCR Nasal M.pneumoniae (PCR) Nasal SARS-CoV-2 (PCR) ABX Reporting Has patient been on IV antibiotics over the past 48 hours?: No Assessment/Plan - Problem List (1) Failure to thrive in adult Impression: She is unable to care for herself at home along with her . They both appear to have dementia and due to her multiple falls and now a left humerus fracture, she is not safe at home. We are working closely with the patient's son, herself, and social work to have a safe discharge plan. I did attempt to call the patient's son today but there was no answer. I left a message asking him to call me back. We are hoping that the patient and family will be agreeable to skilled nurse facility or assisted living. (2) Frequent falls Impression: This is likely due to physical deconditioning and the fact that she now has a left humerus fracture and cannot use her walker correctly. PT has recommended SNF and we are working with her and the family to encourage them to consider this. (3) Humeral shaft fracture Impression: Stable. Her pain is controlled and so we will continue Tylenol as needed. Fredi johnson with sling placement and she will follow up with orthopedics on outpatient basis. Qualifiers: Encounter type: subsequent encounter Fracture type: closed Fracture morphology: comminuted Fracture alignment: displaced Laterality: left Fracture healing: with delayed healing Qualified Code(s): S42.352G - Displaced comminuted fracture of shaft of humerus, left arm, subsequent encounter for fracture with delayed healing (4) Paroxysmal atrial fibrillation Impression: She is rate controlled and in sinus rhythm. Continue metoprolol. No anticoagulation due to her multiple falls and significant ecchymosis. (5) Dementia Impression: Stable and at baseline. We will attempt to obtain a cognitive evaluation by Occupational Therapy. Although she does have some insight into her medical problems, I am not sure that she can make adequate decisions for herself especially if she chooses to go home where it clearly is not a safe environment for her. Qualifiers: (6) Hypertension Impression: Stable. Continue metoprolol. Qualifiers:
[2020-08-28] MEDS: MULTIVITAMIN W/MINERALS TABLET PO SCH (16:24)
[2020-08-28] MEDS: ACETAMINOPHEN 325 MG TABLET PO PRN (20:43)
[2020-08-29] MEDS: SODIUM CHLORIDE FLUSH 0.9% 10 ML SYRINGE IVP SCH ×3 (00:54→15:52)
[2020-08-29] MEDS: ZINC OXIDE 20% OINT 30 GM TUBE TOP PRN (06:03)
[2020-08-29] MEDS: MULTIVITAMIN W/MINERALS TABLET PO SCH (08:28)
[2020-08-29] MEDS: METOPROLOL TARTRATE 25 MG TABLET PO SCH ×2 (08:28→19:59)
[2020-08-29] MEDS: polyethylene glycoL 3350 17 GM PACKET PO SCH (08:28)
[2020-08-29] MEDS: ENOXAPARIN 40 MG/0.4 ML SYRINGE SUBQ SCH (08:29)
--- NOTE | 2020-08-29 15:01 | PROVIDER PROGRESS NOTE ---
Subjective - Prog Note Date Prog Note Date: 08/29/20 - Subjective Subjective: She reports feeling well. Denies any pain in her left upper extremity. She states she is agreeable to SNF. Current Medications - Current Medications Current Medications: Active Medications Acetaminophen (Acetaminophen 325 Mg Tablet) 650 mg PO Q4HR PRN PRN Reason: Pain 1 to 4 Last Admin: 08/28/20 20:43 Dose: 650 mg Documented by: Enoxaparin Sodium (Enoxaparin 40 Mg/0.4 Ml Syringe) 40 mg SUBQ DAILY [facility] Last Admin: 08/29/20 08:29 Dose: 40 mg Documented by: Metoprolol Tartrate (Metoprolol Tartrate 25 Mg Tablet) 25 mg PO BID [facility] Last Admin: 08/29/20 08:28 Dose: 25 mg Documented by: Multi-Ingredient Ointment (Zinc Oxide 20% Oint 30 Gm Tube) 1 applic TOP PRN PRN PRN Reason: Skin Care Last Admin: 08/29/20 06:03 Dose: 1 applic Documented by: Multivitamins/Minerals (Multivitamin W/Minerals Tablet) 1 tab PO DAILYWM [facility] Last Admin: 08/29/20 08:28 Dose: 1 tab Documented by: Ondansetron HCl (Ondansetron Odt 4 Mg Tablet) 4 mg TL Q6HR PRN PRN Reason: Nausea / Vomiting Ondansetron HCl (Ondansetron 4 Mg/2 Ml Vial) 4 mg IVP Q6HR PRN PRN Reason: Nausea / Vomiting Oxycodone HCl (Oxycodone 5 Mg Tablet) 5 mg PO Q4HR PRN PRN Reason: Pain 5 to 7 Polyethylene Glycol (Polyethylene Glycol 3350 17 Gm Packet) 17 gm PO DAILY [facility] Last Admin: 08/29/20 08:28 Dose: 17 gm Documented by: Sodium Chloride (Sodium Chloride Flush 0.9% 10 Ml Syringe) 10 ml IVP PRN PRN PRN Reason: NEEDED PER PROVIDER ORDERS Sodium Chloride (Sodium Chloride Flush 0.9% 10 Ml Syringe) 10 ml IVP 0100,0 900,1700 [facility] Last Admin: 08/29/20 08:29 Dose: 10 ml Documented by: No Known Home Medications 08/18/20 Objective - Vital Signs/Intake & Output Reviewed Vital Signs: Yes Vital Signs: Vital Signs x48h Temp Pulse Resp BP BP Pulse Ox 08/29/20 08:28 118/78 08/29/20 08:26 37.0 C 84 18 118/78 95 Intake & Output: Intake & Output 08/26/20 08/27/20 08/28/20 08/29/20 23:59 23:59 23:59 23:59 Intake Total 50 540 1660 Output Total 100 1 Balance 50 440 1659 - Objective General Appearance: positive: No acute distress, Alert Eyes Bilateral: positive: Normal inspection, Conjunctivae nml ENT: positive: ENT inspection nml Neck: positive: Nml inspection Respiratory: positive: No respiratory distress. negative: Wheezes, Rales Cardiovascular: positive: Regular rate & rhythm, No murmur Abdomen: positive: Non-tender, No distention. negative: Tenderness Skin: positive: Warm, Dry, Other (Multiple areas reas of ecchymosis over her neck, left upper extremity, left hip. Dressing in place over her bilateral lower extremities.) Extremities: positive: Pedal edema (+1 pitting edema in her bilateral lower extremities), Other (Left upper extremity is in a sling. She is neurovascularly intact in left upper extremity. Good capillary refill with it being less than 2 seconds.) Neurologic/Psychiatric: positive: Disoriented to time. negative: Disoriented to person, Disoriented to place - Lab Results Fish Bones: 08/28/20 04:15 08/28/20 04:15 ABX Reporting Has patient been on IV antibiotics over the past 48 hours?: No Assessment/Plan - Problem List (1) Failure to thrive in adult Impression: And in time, she is unable to care for herself at home due to her physical deconditioning underlying dementia. Also appears that her has dementia and this is not a safe living environment for her. She did have caregivers but this was not sufficient. We are currently recommending a SNF given her physical deconditioning but consideration for assisted living will need to be taken on a long-term basis. I did attempt to speak with her son again today but there was no answer. I will attempt to call him once again. (2) Frequent falls Impression: This is likely due to her physical deconditioning and inability to use a walker now that she has a left humerus fracture. She has been evaluated by physical therapy and a SNF is recommended. We will recommend the patient and her family to facilitate discharge. (3) Humeral shaft fracture Impression: Stable and reports her pain is controlled. Continue with splint and Tylenol as needed. Outpatient follow-up with orthopedics on discharge. Qualifiers: Encounter type: subsequent encounter Fracture type: closed Fracture morphology: comminuted Fracture alignment: displaced Laterality: left Fracture healing: with delayed healing Qualified Code(s): S42.352G - Displaced comminuted fracture of shaft of humerus, left arm, subsequent encounter for fracture with delayed healing (4) Paroxysmal atrial fibrillation Impression: She remains rate controlled and we will continue her metoprolol. She is not on anticoagulation due to her multiple falls and significant bruising. (5) Dementia Impression: Stable and at baseline. Once again, we are concerned about her environment at home and at this point time we are recommending SNF with consideration for assisted living long-term. Qualifiers: (6) Hypertension Impression: Her blood pressure is well controlled on metoprolol which we will continue. Qualifiers:
[2020-08-29] MEDS ORDERED: guaiFENesin 600 MG TABLET PO SCH (21:00)
[2020-08-30] MEDS: SODIUM CHLORIDE FLUSH 0.9% 10 ML SYRINGE IVP SCH ×3 (00:18→15:31)
[2020-08-30] MEDS: ZINC OXIDE 20% OINT 30 GM TUBE TOP PRN ×2 (00:46→04:28)
[2020-08-30] MEDS: polyethylene glycoL 3350 17 GM PACKET PO SCH (07:19)
[2020-08-30] MEDS: ENOXAPARIN 40 MG/0.4 ML SYRINGE SUBQ SCH (08:31)
[2020-08-30] MEDS: MULTIVITAMIN W/MINERALS TABLET PO SCH (08:31)
[2020-08-30] MEDS: METOPROLOL TARTRATE 25 MG TABLET PO SCH ×2 (08:31→20:18)
--- NOTE | 2020-08-30 15:14 | PROVIDER PROGRESS NOTE ---
Subjective - Prog Note Date Prog Note Date: 08/30/20 - Subjective Subjective: She continues to deny having any pain. She is agreeable to going to a skilled nurse facility. Current Medications - Current Medications Current Medications: Active Medications Acetaminophen (Acetaminophen 325 Mg Tablet) 650 mg PO Q4HR PRN PRN Reason: Pain 1 to 4 Last Admin: 08/28/20 20:43 Dose: 650 mg Documented by: Enoxaparin Sodium (Enoxaparin 40 Mg/0.4 Ml Syringe) 40 mg SUBQ DAILY [facility] Last Admin: 08/30/20 08:31 Dose: 40 mg Documented by: Metoprolol Tartrate (Metoprolol Tartrate 25 Mg Tablet) 25 mg PO BID [facility] Last Admin: 08/30/20 08:31 Dose: 25 mg Documented by: Multi-Ingredient Ointment (Zinc Oxide 20% Oint 30 Gm Tube) 1 applic TOP PRN PRN PRN Reason: Skin Care Last Admin: 08/30/20 04:28 Dose: 1 applic Documented by: Multivitamins/Minerals (Multivitamin W/Minerals Tablet) 1 tab PO DAILYWM [facility] Last Admin: 08/30/20 08:31 Dose: 1 tab Documented by: Ondansetron HCl (Ondansetron Odt 4 Mg Tablet) 4 mg TL Q6HR PRN PRN Reason: Nausea / Vomiting Ondansetron HCl (Ondansetron 4 Mg/2 Ml Vial) 4 mg IVP Q6HR PRN PRN Reason: Nausea / Vomiting Oxycodone HCl (Oxycodone 5 Mg Tablet) 5 mg PO Q4HR PRN PRN Reason: Pain 5 to 7 Polyethylene Glycol (Polyethylene Glycol 3350 17 Gm Packet) 17 gm PO DAILY [facility] Last Admin: 08/30/20 07:19 Dose: Not Given Documented by: Sodium Chloride (Sodium Chloride Flush 0.9% 10 Ml Syringe) 10 ml IVP PRN PRN PRN Reason: NEEDED PER PROVIDER ORDERS Sodium Chloride (Sodium Chloride Flush 0.9% 10 Ml Syringe) 10 ml IVP 0100,0900,1700 [facility] Last Admin: 08/30/20 08:36 Dose: 10 ml Documented by: No Known Home Medications 08/18/20 Objective - Vital Signs/Intake & Output Reviewed Vital Signs: Yes Vital Signs: Vital Signs x48h Temp Pulse Resp BP BP Pulse Ox 08/30/20 08:31 120/65 08/30/20 07:53 37.0 C 76 16 166/98 H 93 Intake & Output: Intake & Output 08/27/20 08/28/20 08/29/20 08/30/20 23:59 23:59 23:59 23:59 Intake Total 50 540 1870 1350 Output Total 100 1 Balance 50 440 1869 1350 - Objective General Appearance: positive: No acute distress, Alert Eyes Bilateral: positive: Normal inspection ENT: positive: ENT inspection nml Neck: positive: Nml inspection Respiratory: positive: No respiratory distress Skin: positive: Warm Extremities: positive: Pedal edema (+1 Pitting edema in her bilateral lower extremities), Other (The ecchymosis of the left upper extremity is improving as well as the edema. Sensation is intact.) Neurologic/Psychiatric: negative: Disoriented to person, Disoriented to place - Lab Results Fish Bones: 08/28/20 04:15 08/28/20 04:15 Assessment/Plan - Problem List (1) Failure to thrive in adult Impression: At this time, she is unable to care for herself at home and has subsequently suffered multiple falls and now a left humerus fracture. Physical therapy recommending a SNF and we are working with social work for placement. (2) Frequent falls Impression: This is likely due to her physical deconditioning and inability to use a walker now that she has a left humerus fracture. We are working with social work and the family regarding disposition as a SNF is recommended. (3) Humeral shaft fracture Impression: Stable and reports her pain is controlled. Continue with splint and Tylenol as needed. Outpatient follow-up with orthopedics on discharge. Qualifiers: Encounter type: subsequent encounter Fracture type: closed Fracture morphology: comminuted Fracture alignment: displaced Laterality: left Fracture healing: with delayed healing Qualified Code(s): S42.352G - Displaced comminuted fracture of shaft of humerus, left arm, subsequent encounter for fracture with delayed healing (4) Paroxysmal atrial fibrillation Impression: Continue metoprolol. She is not on anticoagulation because of her multiple falls and significant bruising. (5) Dementia Impression: She is at her baseline. We are recommending SNF for short-term care and have discussed the potential need for assisted living long-term. Qualifiers: (6) Hypertension Impression: Stable on metoprolol. Qualifiers:
[2020-08-30] MEDS: ACETAMINOPHEN 325 MG TABLET PO PRN (19:22)
[2020-08-31] MEDS: SODIUM CHLORIDE FLUSH 0.9% 10 ML SYRINGE IVP SCH ×2 (04:02→08:51)
[2020-08-31] MEDS: ACETAMINOPHEN 325 MG TABLET PO PRN (06:06)
[2020-08-31] MEDS: MULTIVITAMIN W/MINERALS TABLET PO SCH (08:49)
[2020-08-31] MEDS: ENOXAPARIN 40 MG/0.4 ML SYRINGE SUBQ SCH (08:49)
[2020-08-31] MEDS: METOPROLOL TARTRATE 25 MG TABLET PO SCH (08:50)
[2020-08-31] MEDS: polyethylene glycoL 3350 17 GM PACKET PO SCH (08:51)
--- NOTE | 2020-08-31 11:32 | Discharge Plan ---
Discharge Plan Problem Reviewed?: Yes Disposition: Home Health Service Condition: Stable Prescriptions: Metoprolol Tartrate [Lopressor] 25 mg PO BID #60 tablet lisinopriL [Zestril] 10 mg PO DAILY #30 tablet Instruction Topics: ED Fx Upper Ext Health Concerns: You were admitted to the hospital because there was concern about you falling multiple times at home and that it may not be a safe environment for you. You were seen by physical therapy and they recommended that you go to rehab. Ultimately, you and your family have decided to go back home. Plan of Treatment: Tylenol 650 mg 4 times a day regularly for pain. Stay well-hydrated. You may use the oxycodone as needed that was previously prescribed by the emergency department. Please take lisinopril and metoprolol for your blood pressure as this has been elevated. A prescription was sent to [facility] in [place] Keep the splint on the upper arm to help reduce motion and there and allow better healing. Follow-up with orthopedics next week, call for an appointment. Try to have increased help at home with the increased caregiver time. Contact your primary care if you feel you are not doing well enough at home and need further assistance such as assisted living or rehab or such. Care Goals: The goal is to treat your left arm fracture and to prevent further falls. Additional Instructions or Follow Up instructions: Follow-up with orthopedic surgery this week if possible and your primary care provider the following week. No Smoking: If you smoke, Please STOP! Call for help. Follow-up with: Edison Lorenzo MD [Provider Admit Priv/Credential] - Ana Zarate MD [Primary Care Provider] -
--- NOTE | 2020-08-31 11:51 | DISCHARGE SUMMARY ---
"Discharge Summary Admit Date: 08/27/20 Discharge Date: 08/31/20 Discharging Provider: Fidel Mason Primary Care Provider: Ana Zarate Code Status: Attempt Resuscitation Condition at Discharge: Stable Discharge Disposition: Home Health Service - DIAGNOSES Admission Diagnoses: Failure to thrive in adult Frequent falls Humeral shaft fracture Paroxysmal atrial fibrillation Dementia Hypertension Discharge Diagnoses with Status of Each Condition: Failure to thrive in adult - ongoing. Frequent falls - stable. Humeral shaft fracture - stable Paroxysmal atrial fibrillation - stable. Dementia - stable. Hypertension - stable. - HPI History of Present Illness: 80-year-old female with a past medical history significant for paroxysmal atrial fibrillation, dementia, hypertension who presents today after having a fall at home. She was previously seen in the emergency department after a fall and found to have a left humerus fracture. It was reported by her caregiver that her at times will grab her from that arm after she falls. Imaging obtained today showed increasing displacement of this fracture. The patient has been falling multiple times at home and although they have 2 caregivers, the caregivers inform the manager social services that the patient requires more care and they are unable to provide the care she needs. When the patient was discharged from here earlier this year after being treated for pneumonia, she was discharged to assisted living in [place]. She states she believes she was there for about 1 month and since that she has been home, she reports having multiple falls. She states she fell today and that is why she came to the emergency department [facility]. She reports falling on a near daily basis. She normally ambulates with a walker but this has been difficult since she broke her left arm. She reports having physical therapy come to her house and that she has been participating with them. She currently denies any pain in the left upper extremity. She denies any chest pain or dyspnea. Denies any syncope or loss of consciousness. She does report feeling dizzy at times although currently denies lightheadedness or dizziness. She denies any dysuria, urgency. Given her multiple visits to emergency department and her frequent falls, it was felt that she would not be safe discharge home given her failure to thrive and so she will be placed in observation for further management. I did discuss goals of care with the patient and she would like to be a full code. - CONSULTS | PROCEDURES Consultations: Social Work, PT - HOSPITAL COURSE Hospital Course: She was admitted given she has been to the ER multiple times now and there was concern that her home situation was not safe for her and that she was failing to thrive. PT evaluated the patient given her frequent falls and a detention facility was recommended. We work closely with social work and the family initially the patient was agreeable to going to a SNF. When her and the family found out this would be self-pay, they ultimately declined going to a SNF. We discussed the concern about her living situation but the family and patient preferred to go home. She was ultimately discharged home with home health. She was prescribed amlodipine in addition to her metoprolol for her hypertension. She was asked to take Tylenol as needed for pain control and the oxycodone that was previously prescribed for her. She was also asked to follow-up with orthopedic surgery given the left humeral shaft fracture. - ALLERGIES Allergies/Adverse Reactions: Allergies Allergy/AdvReac Type Severity Reaction Status Date / Time No Known Drug Allergies Allergy Verified 08/17/20 21:29 - MEDICATIONS Home Medications: Ambulatory Orders Medication Instructions Recorded Confirmed Metoprolol Tartrate [Lopressor] 25 mg PO BID #60 tablet 08/31/20 lisinopriL [Zestril] 10 mg PO DAILY #30 tablet 08/31/20 - PHYSICAL EXAM AT DISCHARGE General Appearance: positive: No acute distress, Alert Eyes Bilateral: positive: Normal inspection, Conjunctivae nml ENT: positive: ENT inspection nml Neck: positive: Nml inspection Respiratory: positive: No respiratory distress. negative: Wheezes, Rales Cardiovascular: positive: Regular rate & rhythm, No murmur. negative: Tachycardia Abdomen: positive: Non-tender, No distention. negative: Tenderness Skin: positive: Warm, Dry, Other (Dressing in place of the bilateral lower extremities. There is ecchymosis over her neck and left upper extremity) Extremities: positive: Pedal edema (+1 pitting edema in her bilateral lower extremities), Other (Her left upper extremity is in a sling) Neurologic/Psychiatric: negative: Disoriented to person, Disoriented to place, Other Physical Exam Other/Comments: Vital Signs - 24 hr 08/30/20 08/31/20 08/31/20 20:18 00:00 08:00 Temperature 37.2 C 36.7 C Heart Rate [ 68 72 Brachial] Respiratory 18 18 Rate Blood Pressure 158/80 H Blood Pressure 187/102 H [Right Brachial artery] Blood Pressure 151/75 H [Right Radial artery] O2 Saturation 93 96 08/31/20 08/31/20 08:50 12:21 Temperature Heart Rate [ 65 Brachial] Respiratory Rate Blood Pressure 181/100 H Blood Pressure 153/78 H [Right Brachial artery] Blood Pressure [Right Radial artery] O2 Saturation Oxygen O2 Source Room air - LABS Result Diagrams: 08/28/20 04:15 08/28/20 04:15 - DIAGNOSTIC IMAGING Diagnostic Imaging Results: Final report reviewed - FOLLOW UP Follow Up: She was asked to follow-up with her primary care provider and orthopedic surgery given the left humeral shaft fracture. - TIME SPENT Time Spent in Discharge (Minutes): 30"
[2020-08-31] MEDS ORDERED: lisinopriL 5 MG TABLET PO SCH (12:00)
[2020-08-31 12:22] VITALS: BP 153/78
== END 2020-08-31 14:45 | disposition home health service (06) | DRG 641 ==
LOC: EDUNIT# → ED 10:26 → MS2 17:09 → OBSVTOIN 08-28 15:50
PROVIDERS: ADMIT Internal Medicine; ATTEND Internal Medicine
DX: R62.7 Adult failure to thrive (principal); Z68.20 Body mass index [BMI] 20.0-20.9, adult; S42.352G Displaced comminuted fracture of shaft of humerus, left arm, subsequent encounter for fracture with delayed healing; W19.XXXD Unspecified fall, subsequent encounter; F03.90 Unspecified dementia, unspecified severity, without behavioral disturbance, psychotic disturbance, mood disturbance, and anxiety; I48.0 Paroxysmal atrial fibrillation; R53.1 Weakness; I10 Essential (primary) hypertension; R25.1 Tremor, unspecified; R32 Unspecified urinary incontinence; M40.209 Unspecified kyphosis, site unspecified; R29.6 Repeated falls; Z74.2 Need for assistance at home and no other household member able to render care; Z20.822 Contact with and (suspected) exposure to COVID-19; Z99.89 Dependence on other enabling machines and devices
CPT/HCPCS: 36415; 73060; 80048; 80053; 81001; 82550; 83690; 83735; 85025; 87631; 96372; 97110; 97116; 97161; 97530; 99284; 99285; A9270; G0378; J1650; 0202U; 81003; 87086

== ENCOUNTER 2020-08-31 14:41 | Outpatient (CLI) | payer MEDICARE, BC | END 2020-08-31 14:42 | disposition home or self-care (01) | LOC: EMS 14:41 | PROVIDERS: ATTEND Internal Medicine | DX: S42.302D Unspecified fracture of shaft of humerus, left arm, subsequent encounter for fracture with routine healing (principal); Z74.01 Bed confinement status | CPT/HCPCS: A0425; A0428 ==

== ENCOUNTER 2020-11-04 06:21 | Outpatient (CLI) | payer MEDICARE, BC | END 2020-11-04 06:22 | disposition critical access hospital (66) | LOC: EMS 06:21 | DX: H92.22 Otorrhagia, left ear (principal) | CPT/HCPCS: A0425; A0429 ==

== ENCOUNTER 2020-11-04 06:53 | Emergency (ER) | payer MEDICARE, BC ==
--- NOTE | 2020-11-04 08:06 | ED Physician Documentation ---
History of Present Illness - Stated complaint Stated Complaint: BLOOD IN L EAR - Chief complaint Chief Complaint: Heent - History obtained from History obtained from: Patient, Family - Additonal information Additional information: Patient comes emergency department chief complaint of blood from left ear. She states that she was fine yesterday but woke up with it this morning. She denies any pain per se. No identifiable trauma. She guesses what ever caused the bleeding most of happened in the night. She states she cannot hear very well out of the ear. states that the patient has better hearing than him, and that she has not really had any ongoing specific issues with that ear. No fevers or chills per patient. No dizziness. No nausea or vomiting. No headache or ringing. No other complaints at this time. Patient is not on anticoagulants. Review of Systems Ten Systems: 10 systems reviewed and negative Constitutional: reports: Reviewed and negative Eyes: reports: Reviewed and negative Ears: reports: Loss of hearing, Drainage/discharge (Blood) Nose: reports: Reviewed and negative Throat: reports: Reviewed and negative Cardiac: reports: Reviewed and negative Respiratory: reports: Reviewed and negative GI: reports: Reviewed and negative : reports: Reviewed and negative Skin: reports: Reviewed and negative Musculoskeletal: reports: Reviewed and negative Neurologic: reports: Reviewed and negative Psychiatric: reports: Reviewed and negative Endocrine: reports: Reviewed and negative Immunocompromised: reports: Reviewed and negative PD PAST MEDICAL HISTORY - Past Medical History Past Medical History: Yes Cardiovascular: Hypertension, Atrial fibrillation Respiratory: None Neuro: Dementia, Tremors Endocrine/Autoimmune: None GI: None STATISTICS MANAGER: Other : Incontinence HEENT: None Psych: None Musculoskeletal: Other Derm: Other - Past Surgical History Past Surgical History: No - Present Medications Home Medications: Ambulatory Orders Medication Instructions Recorded Confirmed Metoprolol Tartrate [Lopressor] 25 mg PO BID #60 tablet 08/31/20 lisinopriL [Zestril] 10 mg PO DAILY #30 tablet 08/31/20 - Allergies Allergies/Adverse Reactions: Allergies Allergy/AdvReac Type Severity Reaction Status Date / Time No Known Drug Allergies Allergy Verified 11/04/20 07:09 - Social History Does the pt smoke?: No Smoking Status: Never smoker Does the pt drink ETOH?: No Does the pt have substance abuse?: No - Immunizations Immunizations are current?: Yes - POLST Patient has POLST: No POLST Status: Full Code PD ED PE NORMAL - Vitals Vital signs reviewed: Yes - General General: Alert and oriented X 3, No acute distress, Well developed/nourished - HEENT HEENT: Atraumatic, PERRL, EOMI, Moist mucous membranes, Other (Moderate blood in left external auditory canal, with very slow ooze. Copious debris noted in canal, without inflammation. TM not able to be seen. No distinct trauma.) - Neck Neck: Supple, no meningeal sign - Respiratory Respiratory: No respiratory distress - Derm Derm: Warm and dry - Extremities Extremities: No deformity - Neuro Neuro: Alert and oriented X 3 - Psych Psych: Normal mood, Normal affect Results - Vitals Vitals: Vital Signs - 24 hr 11/04/20 11/04/20 11/04/20 06:58 07:07 09:29 Temperature 36.3 C L 36.5 C Heart Rate 72 65 72 Respiratory 18 18 13 Rate Blood Pressure 188/96 H 174/89 H 148/76 H O2 Saturation 99 98 98 Oxygen O2 Source Room air PD MEDICAL DECISION MAKING - ED course Complexity details: considered differential, d/w patient, d/w family ED course: I did clean the patient's external auditory canal with cotton tip applicator and with saline irrigation. She was noted to have copious, caseous debris and skin fragments in the canal, extending quite deeply beyond which I could remove the debris. There is moist blood without obvious active bleeding. No distinct laceration was appreciated. At this point in time, I discussed with patient and that I am really not sure what exactly has caused the findings. I cleaned the area as best as I could, and attempted to get a hold of Dr. Amaya, the on-call ENT specialist for the [place] [facility] [place] [facility]. 2 hours later, there had still been no response. At this point in time, the pt did not have an emergent condition, and I have advised her to call the ENT office to arrange for follow up as soon as possible. We have discussed the usual indications for return. Departure - Departure Disposition: 01 Home, Self Care Clinical Impression: Bleeding from left ear Condition: Stable Instructions: ED Rupture Eardrum Traumatic Follow-Up: Rasta Woods MD [Physician No Access] - BETZY AMAYA MD [Physician No Access] - Comments: Your eardrum appears to have ruptured, that is not clear why. There is quite a bit of debris in your ear canal, and as such, you should follow-up with the ear nose throat specialist to have this looked at. We have called their office, but the specialist has not been able to return the call. As soon as he calls back, we will let him know that you need to follow-up that you will be calling his office. Please plan to call his office in the early afternoon to get an appointment set up. Your ear may lose a little until it heals over. You may put a cotton ball in your ear if you would like to help soak up some of this drainage. There is only minimal oozing at this point and no clear laceration or other injury, so no further procedures are indicated emergently. Discharge Date/Time: 11/04/20 09:31
[2020-11-04 09:31] VITALS: BP 148/76
== END 2020-11-04 09:31 | disposition home or self-care (01) ==
LOC: EDUNIT# → ED 06:53
DX: H92.22 Otorrhagia, left ear (principal); I10 Essential (primary) hypertension; I48.91 Unspecified atrial fibrillation
CPT/HCPCS: 99283

== ENCOUNTER 2020-12-19 14:50 | Outpatient (CLI) | payer MEDICARE, BC | END 2020-12-19 14:51 | disposition EMS.NT | LOC: EMS 14:50 | DX: Z04.3 Encounter for examination and observation following other accident (principal) ==

== ENCOUNTER 2021-01-12 07:27 | Outpatient (CLI) | payer MEDICARE, BC | END 2021-01-12 07:28 | disposition EMS.NT | LOC: EMS 07:27 | DX: Z03.89 Encounter for observation for other suspected diseases and conditions ruled out (principal) ==

== ENCOUNTER 2021-01-17 06:56 | Outpatient (CLI) | payer MEDICARE, BC | END 2021-01-17 06:57 | disposition EMS.NT | LOC: EMS 06:56 | DX: S51.811A Laceration without foreign body of right forearm, initial encounter (principal); W01.0XXA Fall on same level from slipping, tripping and stumbling without subsequent striking against object, initial encounter; Y93.01 Activity, walking, marching and hiking; Y92.003 Bedroom of unspecified non-institutional (private) residence as the place of occurrence of the external cause ==

== ENCOUNTER 2021-01-20 05:47 | Outpatient (CLI) | payer MEDICARE, BC | END 2021-01-20 05:48 | disposition critical access hospital (66) | LOC: EMS 05:47 | DX: R41.0 Disorientation, unspecified (principal); W19.XXXA Unspecified fall, initial encounter; Y92.003 Bedroom of unspecified non-institutional (private) residence as the place of occurrence of the external cause | CPT/HCPCS: A0425; A0429 ==

== ENCOUNTER 2021-01-20 06:20 | Emergency (ER) | payer MEDICARE, BC ==
[2021-01-20] MEDS ORDERED: SODIUM CHLORIDE 0.9% 1,000 ML IV STA (07:29)
--- NOTE | 2021-01-20 07:48 | ED Physician Documentation ---
History of Present Illness - Stated complaint Stated Complaint: FALL - Chief complaint Chief Complaint: General - History obtained from History obtained from: Patient, EMS - Additonal information Additional information: Patient is brought to the emergency department by EMS for chief complaint of found down on the floor. The patient states she does not remember the exact details of this fall, but does note that she has been falling a lot lately. She denies any pain anywhere. She lives at home with her , who has dementia. Medics have reported that the patient also has dementia, though she is able to answer orientation questions correctly. Patient denies any recent symptoms of illness. No cough, shortness of breath, chest pain, or nausea. No dysuria. No fevers or chills. The patient does not know what medical problems she has, though she is on metoprolol. Her only complaint is that she feels thirsty. Apparently patient's primary care physician has been working on trying to get home health into the patient's home and has actually sent out a referral for this. However, the services have not been set up yet. Review of Systems Ten Systems: 10 systems reviewed and negative Constitutional: reports: Reviewed and negative Eyes: reports: Reviewed and negative Ears: reports: Reviewed and negative Nose: reports: Reviewed and negative Throat: reports: Reviewed and negative Cardiac: reports: Reviewed and negative Respiratory: reports: Reviewed and negative GI: reports: Reviewed and negative : reports: Reviewed and negative Skin: reports: Reviewed and negative Musculoskeletal: reports: Reviewed and negative Neurologic: reports: Reviewed and negative Psychiatric: reports: Reviewed and negative Endocrine: reports: Reviewed and negative Immunocompromised: reports: Reviewed and negative PD PAST MEDICAL HISTORY - Past Medical History Past Medical History: Yes Cardiovascular: Hypertension, Atrial fibrillation Respiratory: None Neuro: Dementia, Tremors Endocrine/Autoimmune: None GI: None 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: Other : Incontinence HEENT: None Psych: None Musculoskeletal: Other Derm: Other - Past Surgical History Past Surgical History: No - Present Medications Home Medications: Ambulatory Orders Medication Instructions Recorded Confirmed Metoprolol Tartrate [Lopressor] 25 mg PO BID #60 tablet 08/31/20 01/20/21 Acetaminophen [Tylenol] 650 mg PO Q6H PRN 01/20/21 01/20/21 Potassium Chloride [K-Dur] 20 meq PO BID 01/20/21 01/20/21 - Allergies Allergies/Adverse Reactions: Allergies Allergy/AdvReac Type Severity Reaction Status Date / Time No Known Drug Allergies Allergy Verified 01/20/21 06:30 - Social History Does the pt smoke?: No Smoking Status: Never smoker Does the pt drink ETOH?: No Does the pt have substance abuse?: No - Immunizations Immunizations are current?: Yes - POLST Patient has POLST: No POLST Status: Full Code PD ED PE NORMAL - Vitals Vital signs reviewed: Yes - General General: Alert and oriented X 3 (Patient is able to specify that she is at "would be general in [place]" and that "it is January and we just switched over from December". She knows who she is.), No acute distress - HEENT HEENT: Atraumatic, PERRL, EOMI, Moist mucous membranes - Neck Neck: Supple, no meningeal sign - Cardiac Cardiac: RRR, No murmur - Respiratory Respiratory: No respiratory distress, Clear bilaterally - Abdomen Abdomen: Soft, Non tender, Non distended - Derm Derm: Normal color, Warm and dry, Other (Small skin tear right forearm, healthy appearing. Extensive skin changes with edema bilateral lower legs and anterior tibial region. No erythema or drainage. Legs are dressed in a somewhat disheveled manner, but with what appears to be a barrier ointment. Mult. contusions on bilateral forerarms) - Extremities Extremities: No deformity, Other (2+ pitting edema bilateral lower extremities.) - Neuro Neuro: Alert and oriented X 3 - Psych Psych: Normal mood, Normal affect Results - Vitals Vitals: Vital Signs - 24 hr 01/21/21 01/21/21 01/21/21 01:12 03:00 05:00 Temperature 36.3 C L Heart Rate 67 70 74 Respiratory 17 16 Rate Blood Pressure 130/74 130/75 126/87 H O2 Saturation 99 100 96 01/21/21 01/21/21 01/21/21 11:36 13:35 17:01 Temperature Heart Rate 69 94 68 Respiratory 17 22 16 Rate Blood Pressure 155/110 H 152/86 H 147/86 H O2 Saturation 96 96 Oxygen O2 Source Room air - Labs Labs: Microbiology 01/20/21 08:20 Urine Culture - Final Urine,Clean Catch >100,000 COLONIES/ML Polymicrobial growth including potential pathogens. This is suggestive of skin or other contamination. Laboratory Tests 01/20/21 01/20/21 01/20/21 07:49 07:49 08:20 WBC 7.2 RBC 4.64 Hgb 12.1 Hct 38.7 MCV 83.4 MCH 26.1 L MCHC 31.3 L RDW 18.8 H Plt Count 91 L MPV 10.9 H Neut # (Auto) 5.1 Lymph # (Auto) 1.0 L [place] # (Auto) 0.8 Eos # (Auto) 0.2 Baso # (Auto) 0.0 Absolute Nucleated RBC 0.00 Nucleated RBC % 0.0 Sodium 147 H Potassium 3.1 L Chloride 109 Carbon Dioxide 28 Anion Gap 10.0 BUN 41 H Creatinine 1.1 H Estimated GFR (MDRD) 48 L Glucose 101 H Calcium 9.2 Total Bilirubin 0.9 AST 17 ALT 16 Alkaline Phosphatase 114 Total Protein 6.5 L Albumin 3.3 Globulin 3.2 Albumin/Globulin Ratio 1.0 Lipase 26 Urine Color DARK YELLOW Urine Clarity SL. CLOUDY Urine pH 5.5 Ur Specific [place] 1.020 Urine Protein NEGATIVE Urine Glucose (UA) NEGATIVE Urine Ketones NEGATIVE Urine Occult Blood LARGE H Urine Nitrite NEGATIVE Urine Bilirubin NEGATIVE Urine Urobilinogen 0.2 (NORMAL) Ur Leukocyte Esterase SMALL H Urine RBC 6-10 H Urine WBC 11-25 H Ur Squamous Epith Cells FEW Squamous Amorphous Sediment Moderate Urine Bacteria Moderate H Ur Microscopic Review INDICATED Urine Culture Comments INDICATED Nasal Adenovirus (PCR) Nasal B. parapertussis DNA (PCR) Nasal Coronavir 229E PCR Nasal Coronavir HKU1 PCR Nasal Coronavir NL63 PCR Nasal Coronavir OC43 PCR Nasal Enterovir/Rhinovir PCR Nasal Influenza B PCR Nasal Influenza A PCR Nasal Parainfluen 1 PCR Nasal Parainfluen 2 PCR Nasal Parainfluen 3 PCR Nasal Parainfluen 4 PCR Nasal RSV (PCR) Nasal B.pertussis DNA PCR Nasal C.pneumoniae (PCR) Mohinder Human Metapneumo PCR Nasal M.pneumoniae (PCR) Nasal SARS-CoV-2 (PCR) 01/20/21 08:38 WBC RBC Hgb Hct MCV MCH MCHC RDW Plt Count MPV Neut # (Auto) Lymph # (Auto) [place] # (Auto) Eos # (Auto) Baso # (Auto) Absolute Nucleated RBC Nucleated RBC % Sodium Potassium Chloride Carbon Dioxide Anion Gap BUN Creatinine Estimated GFR (MDRD) Glucose Calcium Total Bilirubin AST ALT Alkaline Phosphatase Total Protein Albumin Globulin Albumin/Globulin Ratio Lipase Urine Color Urine Clarity Urine pH Ur Specific [place] Urine Protein Urine Glucose (UA) Urine Ketones Urine Occult Blood Urine Nitrite Urine Bilirubin Urine Urobilinogen Ur Leukocyte Esterase Urine RBC Urine WBC Ur Squamous Epith Cells Amorphous Sediment Urine Bacteria Ur Microscopic Review Urine Culture Comments Nasal Adenovirus (PCR) NOT DETECTED Nasal B. parapertussis DNA (PCR) NOT DETECTED Nasal Coronavir 229E PCR NOT DETECTED Nasal Coronavir HKU1 PCR NOT DETECTED Nasal Coronavir NL63 PCR NOT DETECTED Nasal Coronavir OC43 PCR NOT DETECTED Nasal Enterovir/Rhinovir PCR NOT DETECTED Nasal Influenza B PCR NOT DETECTED Nasal Influenza A PCR NOT DETECTED Nasal Parainfluen 1 PCR NOT DETECTED Nasal Parainfluen 2 PCR NOT DETECTED Nasal Parainfluen 3 PCR NOT DETECTED Nasal Parainfluen 4 PCR NOT DETECTED Nasal RSV (PCR) NOT DETECTED Nasal B.pertussis DNA PCR NOT DETECTED Nasal C.pneumoniae (PCR) NOT DETECTED Mohinder Human Metapneumo PCR NOT DETECTED Nasal M.pneumoniae (PCR) NOT DETECTED Nasal SARS-CoV-2 (PCR) NOT DETECTED PD MEDICAL DECISION MAKING - ED course Complexity details: reviewed old records, reviewed results, re-evaluated patient, considered differential, d/w patient ED course: Since it was not clear whether the patient had hit her head when she fell, she was sent for CT scans of the head and C-spine. She was also worked up with labs and urinalysis and given 1 L bolus of 0.9 normal saline. Pt was evaluated by SW and PT in the ED, and felt unfit to return home. [facility], pending placement and final disposition.
[2021-01-20 07:51] LABS: BASOPHILS % (AUTO) 0.4 %; EOSINOPHILS # (AUTO) 0.2 10^3/uL (0.0-0.7); EOSINOPHILS % (AUTO) 2.9 %; HCT - HEMATOCRIT 38.7 % (37.0-47.0); HGB - HEMOGLOBIN 12.1 g/dL (12.0-16.0); LYMPHOCYTES % (AUTO) 13.2 %; MEAN CORPUSCULAR HEMOGLOBIN 26.1 pg (27.0-31.0); MEAN CORPUSCULAR HGB CONC 31.3 g/dL (32.0-36.0); MEAN CORPUSCULAR VOLUME 83.4 fL (81.0-99.0); MEAN PLATELET VOLUME 10.9 fL (7.9-10.8); MONOCYTES # (AUTO) 0.8 10^3/uL (0.0-1.0); MONOCYTES % (AUTO) 11.5 %; NEUTROPHILS # (AUTO) 5.1 10^3/uL (1.5-6.6); NEUTROPHILS % (AUTO) 71.4 %; PLT - PLATELET COUNT 91 10^3/uL (130-450); RED BLOOD COUNT 4.64 10^6/uL (4.20-5.40); RED CELL DISTRIBUTION WIDTH 18.8 % (12.0-15.0); WHITE BLOOD COUNT 7.2 x10^3/uL (4.8-10.8)
--- NOTE | 2021-01-20 07:56 | CT Report ---
PROCEDURE: HEAD WO INDICATIONS: Fall/head injury TECHNIQUE: Noncontrast 4.5 mm thick angled axial sections acquired from the foramen magnum to the vertex. For r adiation dose reduction, the following was used: automated exposure control, adjustment of mA and/or kV according to patient size. COMPARISON: May 06, 2020. FINDINGS: Nonstandard positioning. BRAIN PARENCHYMA: Prominence of the cortical sulci. No acute cortical based (large territory) infarct ion, intracranial hemorrhage, mass or mass effect, or abnormal fluid collection. White matter hypoatt enuation, likely representing the sequelae of microvascular ischemia. The density in the larger dural venous sinuses is grossly normal. VENTRICLES: Normal in size, shape, and position. BONES/SINUSES: The skull base and calvarium demonstrate no acute abnormality. The paranasal sinuses a nd mastoid air cells are well aerated. IMPRESSION: 1.No acute intracranial abnormality. Reviewed by: Noe Bean MD on 01/20/2021 7:55 AM PDT Approved by: Noe Bean MD on 01/20/2021 7:55 AM PDT Station ID: [id number]
[2021-01-20 08:06] LABS: ALBUMIN 3.3 g/dL (3.2-5.5); BILIRUBIN,TOTAL 0.9 mg/dL (0.2-1.0); CALCIUM 9.2 mg/dL (8.5-10.3); CREATININE 1.1 mg/dL (0.4-1.0); POTASSIUM 3.1 mmol/L (3.5-5.0); TOTAL PROTEIN 6.5 g/dL (6.7-8.2)
--- NOTE | 2021-01-20 08:10 | CT Report ---
PROCEDURE: CERVICAL SPINE WO INDICATIONS: Fall/head injury TECHNIQUE: Noncontrast 3 mm thick sections acquired from the skull base to the T4 level. Sagittal and coronal r eformats were then constructed. For radiation dose reduction, the following was used: automated exp osure control, adjustment of mA and/or kV according to patient size. COMPARISON: December 11, 2019. FINDINGS: The examination is compromised by nonstandard positioning. CT CERVICAL SPINE: No acute, displaced fracture or retropulsion. Grade 1 anterolisthesis of C3-5 and C7-T1. The vertebral body heights are maintained. No aggressive osseous lesions are identified. Mild to moderate disc height loss with posterior disc osteophyte complexes at C5-7. Uncovertebral/facet arthrosis. SOFT TISSUES: The prevertebral and paraspinal soft tissues demonstrate no abnormality. LUNG APICES/THYROID: The visualized lung apices are clear. Heterogeneity of the right thyroid gland, which may reflect multinodular change. IMPRESSION: 1.No acute osseous abnormality of the cervical spine. 2.Heterogeneity of the right thyroid gland, which may reflect multinodular change. Consider correlati on with thyroid function tests and ultrasound as clinically warranted. Reviewed by: Noe Bean MD on 01/20/2021 8:08 AM PDT Approved by: Noe Bean MD on 01/20/2021 8:08 AM PDT Station ID: [id number]
[2021-01-20] MEDS ORDERED: POTASSIUM CHLORIDE 20 MEQ TABLET PO STA (08:39)
[2021-01-20 08:54] LABS: BILIRUBIN,URINE NEGATIVE (NEGATIVE); GLUCOSE, URINE (UA) NEGATIVE (NEGATIVE); KETONES,URINE (UA) NEGATIVE (NEGATIVE); LEUKOCYTE ESTERASE, URINE SMALL (NEGATIVE); NITRITE,URINE NEGATIVE (NEGATIVE); OCCULT BLOOD,URINE LARGE (NEGATIVE); PH,URINE 5.5 PH (5.0-7.5); PROTEIN,URINE NEGATIVE (NEGATIVE); UROBILINOGEN,URINE 0.2 (NORMAL) E.U./dL (NORMAL)
[2021-01-20 08:55] LABS: CLARITY,URINE SL. CLOUDY (CLEAR)
[2021-01-20 09:12] LABS: AMORPHOUS SEDIMENT,UR Moderate /LPF; BACTERIA,URINE Moderate /HPF (None Seen); SQUAMOUS EPITHELIAL CELL,UR FEW Squamous (<= Few)
[2021-01-20] MEDS ORDERED: NYSTATIN CREAM 15 GM TUBE TOP STA (09:27)
[2021-01-20] MEDS ORDERED: COD LIVER OIL/ZINC OXIDE 113 GM TUBE TOP STA (09:27)
[2021-01-20 09:55] LABS: B. PARAPERTUSSIS- RESP PCR PAN NOT DETECTED; B. PERTUSSIS- RESP PCR PANEL NOT DETECTED; C. PNEUMONIAE- RESP PCR PANEL NOT DETECTED; CORONAVIRUS 229E-RESP PCR NOT DETECTED; CORONAVIRUS HKU1-RESP PCR NOT DETECTED; CORONAVIRUS NL63-RESP PCR NOT DETECTED; CORONAVIRUS OC43-RESP PCR NOT DETECTED; HUMAN METAPNEUMOVIRUS NOT DETECTED; INFLUENZA A- RESP PCR PANEL NOT DETECTED; INFLUENZA B - RESP PCR PANEL NOT DETECTED; M. PNEUMONIAE- RESP PCR PANEL NOT DETECTED; PARAINFLUENZA VIRUS 1 NOT DETECTED; PARAINFLUENZA VIRUS 2 NOT DETECTED; PARAINFLUENZA VIRUS 3 NOT DETECTED; PARAINFLUENZA VIRUS 4 NOT DETECTED; RHINOVIRUS/ENTEROVIRUS NOT DETECTED; RSV- RESP PCR PANEL NOT DETECTED; SARS-CoV-2 -RESP PCR PANEL NOT DETECTED
[2021-01-20] MEDS ORDERED: METOPROLOL TARTRATE 50 MG TABLET PO SCH ×2 (17:36→18:00)
[2021-01-20] MEDS: METOPROLOL TARTRATE 25 MG TABLET PO SCH (20:23)
[2021-01-21] MEDS: METOPROLOL TARTRATE 25 MG TABLET PO SCH ×2 (09:17→19:22)
[2021-01-22] MEDS: METOPROLOL TARTRATE 25 MG TABLET PO SCH ×2 (08:54→21:17)
--- NOTE | 2021-01-23 08:50 | ED Physician Documentation ---
ED Addendum - Addendum Addendum: 01/23/21 08:47 80-year-old female with mild cognitive decline and physical decline has had falls in her home and there is concern from the family and medics picked the patient up that her living situation at home is inadequate. [facility]PS has been notified. Social work is working with the patient and her son Gilmar BARRAGAN for placement into a [facility] facility or assisted living. Physical therapy has come to evaluate the patient and recommended [facility]p facility for 4 physical therapy for rehabilitation. 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 She does have a condominium in [facility] she has 2 houses on [facility]. She is forward thinking and agreeable to some help to continue to be at home. The couple has had trouble keeping help in the home and have dismissed continuous care. 01/23/21 08:50
[2021-01-23 09:28] LABS: BASOPHILS % (AUTO) 0.3 %; EOSINOPHILS # (AUTO) 0.2 10^3/uL (0.0-0.7); EOSINOPHILS % (AUTO) 2.6 %; HCT - HEMATOCRIT 40.3 % (37.0-47.0); HGB - HEMOGLOBIN 12.6 g/dL (12.0-16.0); LYMPHOCYTES # (AUTO) 0.8 10^3/uL (1.5-3.5); LYMPHOCYTES % (AUTO) 12.6 %; MEAN CORPUSCULAR HEMOGLOBIN 26.2 pg (27.0-31.0); MEAN CORPUSCULAR HGB CONC 31.3 g/dL (32.0-36.0); MEAN CORPUSCULAR VOLUME 83.8 fL (81.0-99.0); MEAN PLATELET VOLUME 10.9 fL (7.9-10.8); MONOCYTES # (AUTO) 0.6 10^3/uL (0.0-1.0); MONOCYTES % (AUTO) 8.7 %; NEUTROPHILS # (AUTO) 4.9 10^3/uL (1.5-6.6); PLT - PLATELET COUNT 118 10^3/uL (130-450); RED BLOOD COUNT 4.81 10^6/uL (4.20-5.40); RED CELL DISTRIBUTION WIDTH 19.1 % (12.0-15.0); WHITE BLOOD COUNT 6.5 x10^3/uL (4.8-10.8)
[2021-01-23 09:42] LABS: ALBUMIN 3.3 g/dL (3.2-5.5); BILIRUBIN,TOTAL 0.7 mg/dL (0.2-1.0); CALCIUM 9.2 mg/dL (8.5-10.3); POTASSIUM 3.4 mmol/L (3.5-5.0); TOTAL PROTEIN 6.6 g/dL (6.7-8.2)
[2021-01-23] MEDS: METOPROLOL TARTRATE 25 MG TABLET PO SCH ×2 (09:45→21:03)
[2021-01-24] MEDS: METOPROLOL TARTRATE 25 MG TABLET PO SCH ×2 (09:31→21:07)
[2021-01-25] MEDS: METOPROLOL TARTRATE 25 MG TABLET PO SCH ×2 (09:30→21:13)
[2021-01-26] MEDS: METOPROLOL TARTRATE 25 MG TABLET PO SCH ×2 (09:20→21:08)
[2021-01-27] MEDS: METOPROLOL TARTRATE 25 MG TABLET PO SCH ×3 (22:05→22:07)
[2021-01-28] MEDS: METOPROLOL TARTRATE 25 MG TABLET PO SCH ×2 (09:58→21:07)
[2021-01-28 11:54] LABS: B. PARAPERTUSSIS- RESP PCR PAN NOT DETECTED; B. PERTUSSIS- RESP PCR PANEL NOT DETECTED; C. PNEUMONIAE- RESP PCR PANEL NOT DETECTED; CORONAVIRUS 229E-RESP PCR NOT DETECTED; CORONAVIRUS HKU1-RESP PCR NOT DETECTED; CORONAVIRUS NL63-RESP PCR NOT DETECTED; CORONAVIRUS OC43-RESP PCR NOT DETECTED; HUMAN METAPNEUMOVIRUS NOT DETECTED; INFLUENZA A- RESP PCR PANEL NOT DETECTED; INFLUENZA B - RESP PCR PANEL NOT DETECTED; M. PNEUMONIAE- RESP PCR PANEL NOT DETECTED; PARAINFLUENZA VIRUS 1 NOT DETECTED; PARAINFLUENZA VIRUS 2 NOT DETECTED; PARAINFLUENZA VIRUS 3 NOT DETECTED; PARAINFLUENZA VIRUS 4 NOT DETECTED; RHINOVIRUS/ENTEROVIRUS NOT DETECTED; RSV- RESP PCR PANEL NOT DETECTED; SARS-CoV-2 -RESP PCR PANEL NOT DETECTED
[2021-01-29] MEDS: METOPROLOL TARTRATE 25 MG TABLET PO SCH ×2 (08:19→20:53)
--- NOTE | 2021-01-29 09:33 | ED Physician Documentation ---
ED Addendum - Addendum Addendum: 01/29/21 09:33 After many delays, social work arrange for her to go to an assisted living in [place]. She will be going today in stable condition. Disposition: Discharged to assisted living Condition: Stable Diagnoses: 1. Head injury 2. Frequent falls 3. Dementia
[2021-01-30] MEDS: METOPROLOL TARTRATE 25 MG TABLET PO SCH (09:38)
[2021-01-30 09:45] VITALS: BP 156/80
--- NOTE | 2021-01-30 10:56 | ED Physician Documentation ---
ED Addendum - Addendum Addendum: 01/30/21 10:55The patient was slated for transfer to a care home facility today. This is still in progress and will occur approximately 11 AM. Social work confirmed with the receiving facility. No further problems or complications this morning. Breakfast was served in the patient is doing okay. Disposition: The patient is transferred to care home facility Diagnoses: 1. Frequent falls 2. Head contusion 3. Muscle deconditioning 4. Chronic weakness
== END 2021-01-30 11:10 | disposition home or self-care (01) ==
LOC: EDUNIT# → ED 06:20 → SUPCPDRO 06:20 → ED 01-30 11:10
DX: S00.93XA Contusion of unspecified part of head, initial encounter (principal); W19.XXXA Unspecified fall, initial encounter; Z91.81 History of falling; Y92.009 Unspecified place in unspecified non-institutional (private) residence as the place of occurrence of the external cause; F03.90 Unspecified dementia, unspecified severity, without behavioral disturbance, psychotic disturbance, mood disturbance, and anxiety; R53.1 Weakness; M62.50 Muscle wasting and atrophy, not elsewhere classified, unspecified site; Z20.822 Contact with and (suspected) exposure to COVID-19
CPT/HCPCS: 36415; 70450; 72125; 80053; 81001; 83690; 85025; 87086; 87631; 99283; A9270; 0202U; 81003